=== PATIENT | male | born 1955 | race Caucasian/White ===

== ENCOUNTER 2017-02-18 11:17 | Emergency (ER) | payer BC, OTHER ==
[~2017-02-18] VITALS: Ht 177.8 cm; Wt 89.0 kg
[~2017-02-18 11:17] MED LIST: ZNTT/150 PO
[2017-02-18 11:26] VITALS: TEMP 36.8; Ht 177.8 cm; Wt 89.0 kg
[2017-02-18] MEDS ORDERED: SODIUM CHLORIDE 0.9% 1000ML 1,000 ML IV STA (11:41)
[2017-02-18] MEDS ORDERED: MoRPHine SULFATE 4 MG/ML 1 ML CARP\\VIAL IV STA (11:41)
[2017-02-18] MEDS ORDERED: ONDANSETRON INJ 2 MG/ML 2 ML VIAL IV STA (11:41)
[2017-02-18 12:03] VITALS: O2SAT 100
[2017-02-18 12:17] LABS: MANUAL MICROSCOPIC REQUIRED? YES; URINE APPEARANCE CLEAR (CLEAR); URINE BILIRUBIN NEG (NEG); URINE COLOR YELLOW; URINE NITRITE NEG (NEG); URINE PH 5.5 (4.5-7.5); URINE SPECIFIC GRAVITY >= 1.030 (1.000-1.030); UROBILINOGEN NEG (NEG)
[2017-02-18 12:20] LABS: BASO % 0.6 %; BASO ABS # 0.06 K/uL (0-0.2); COMPLETE YES; EOS % 0.9 %; HEMATOCRIT 43.3 % (42-52); IG% 0.3 %; LYMPH % 27.7 %; MEAN CELL VOLUME 91.7 fL (80-100); MEAN CORPUSCULAR HGB CONC 34.9 g/dl (32-36); MONO % 7.1 %; NEUT % 63.4 %; PLATELET COUNT 286 K/uL (130-400); RED BLOOD COUNT 4.72 M/uL (4.7-6.1); WHITE BLOOD COUNT 9.38 K/uL (4.8-10.8)
[2017-02-18 12:24] LABS: REVIEW REQ? NO
[2017-02-18] MEDS ORDERED: HYDROmorphone INJ 1 MG/ML SYR IV STA (12:25)
[2017-02-18 12:32] LABS: URINE MUCUS PRESENT (NONE PRSENT); URINE RBC >30 /hpf (0-4)
[2017-02-18 12:33] LABS: URINE BACTERIA NEG (NEG)
[2017-02-18 12:34] LABS: ZZUR CULT IF INDIC CLEAN CATCH NO
[2017-02-18 12:40] LABS: BUN/CREATININE RATIO 25.1 (10-20); CALCIUM 9.1 mg/dl (8.5-10.1); CREATININE 0.93 mg/dl (0.60-1.40)
--- NOTE | 2017-02-18 12:44 | DIAGNOSTIC IMAGING REPORT ---
ULTRASOUND KIDNEYS AND BLADDER CLINICAL HISTORY: Left flank pain. COMPARISON STUDY: Abdominal CT dated 03/16/2011. TECHNIQUE: Real-time, grayscale, and color flow sonography of the kidneys and bladder is performed. Images are reviewed in the transverse and longitudinal planes. FINDINGS: Kidneys: The kidneys are normal in size and echotexture. The right kidney measures 10.9 x 6.1 x 6.0 cm and the left kidney measures 12.0 x 6.5 x 5.6 cm. There is mild left hydronephrosis. No right-sided hydronephrosis is seen. No shadowing renal calculi are identified. There is no sonographic evidence of contour deforming renal mass lesion. No perinephric fluid is identified. Bladder: The bladder is decompressed and not well evaluated. Ureteral jets were not seen. IMPRESSION: 1. There is mild left-sided hydronephrosis. This raises concern for an obstructing ureteral calculus. 2. The kidneys are normal in size. There is no right-sided hydronephrosis. 3. The bladder is decompressed and not well evaluated. Electronically signed by: Joey Vo M.D. 02/18/2017 12:42 PM Dictated Date/Time: 02/18/2017 12:40 PM
[2017-02-18] MEDS ORDERED: PRLSR20 PO (12:49)
[2017-02-18] MEDS ORDERED: NAPR1TAB9 PO (12:49)
[2017-02-18] MEDS ORDERED: KETOROLAC TROMETHAMINE 30 MG/ML VIAL IV STA (12:50)
[2017-02-18] MEDS ORDERED: ONDA4TAB10 SL (13:41)
[2017-02-18] MEDS ORDERED: OXYC1TAB3 PO (13:41)
[2017-02-18 14:04] VITALS: BP 168/89; PULSE 80; O2SAT 97
--- NOTE | 2017-02-18 15:20 | EMERGENCY ROOM VISIT NOTE ---
History First contact with patient: 11:39 Chief Complaint: FLANK PAIN Stated Complaint: PAIN IN LOWER LEFT SIDE OF BACK History of Present Illness The patient is a 61 year old male who presents to the Emergency Room with complaints of severe sudden onset of left flank pain that radiates to his groin described as aching, ranging in severity 9 out of 10. Nothing makes it better or worse. He has had kidney stones before and symptoms feel similar. He does not have a urologist. Patient denies chest pain, dyspnea, fever, chills, vomiting, diarrhea, peanut pain, testicular pain. Review of Systems See HPI for pertinent positives & negatives. A total of 10 systems reviewed and were otherwise negative. Past Medical/Surgical History Kidney stones, GERD Social History Smoking Status: Never Smoker Smokeless Tobacco Use: No Drug Use: none Marital Status: Housing Status: lives with family Occupation Status: employed Current/Historical Medications Scheduled Naproxen (Aleve), 220 MG PO UD Omeprazole (Prilosec), 20 MG PO DAILY Ondasetron Odt (Zofran Odt), 4 MG SL Q6H Scheduled PRN Oxycodone Immediate Rel Tab (Roxicodone Ir), 1-2 TAB PO Q4H PRN for Severe Pain Allergies Uncoded Allergies: NONE (Allergy, Unknown, 10/23/03) Physical Exam Vital Signs Date Time Temp Pulse Resp B/P Pulse Ox O2 Delivery O2 Flow Rate FiO2 02/18/17 14:04 80 17 168/89 97 02/18/17 13:11 76 12 146/80 93 Room Air 02/18/17 12:08 76 02/18/17 12:03 69 18 163/84 100 Room Air 02/18/17 12:03 100 Room Air 02/18/17 12:03 69 18 163/84 100 Room Air 02/18/17 12:03 100 Room Air 02/18/17 11:26 36.8 76 16 189/108 95 Room Air Pain Rating (0-10): 2.0 Physical Exam VITALS: Vitals are noted on the nurse's note and reviewed by myself. Vital signs hypertensive GENERAL: Pleasant male in obvious pain, in no acute distress, nondiaphoretic, well-developed well-nourished. SKIN: The skin was without rashes, erythema, edema, or bruising. There is no tenting of the skin. Capillary reflex less than 2 seconds. HEAD: Normocephalic atraumatic. EARS: External auditory canals clear, tympanic membranes pearly mccarthy without erythema or effusion bilaterally. EYES: Pupils equal round and reactive to light and accommodation. Conjunctivae without injection, sclerae without icterus. Extraocular movements intact. NOSE: Patent, turbinates without inflammation or discharge. MOUTH: Mucous membranes moist. Pharynx without erythema or exudate. Uvula midline. Airway patent. Tongue does not deviate. NECK: Supple without nuchal rigidity. No lymphadenopathy. No thyromegaly. Cervical spine is nontender. No JVD. HEART: Regular rate and rhythm without murmurs gallops or rubs. LUNGS: Clear to auscultation bilaterally without wheezes, rales or rhonchi. No dullness to percussion. No retractions or accessory muscle use. ABDOMEN: Positive bowel sounds x 4. Normal tympanic percussion. Soft, nontender, without masses or organomegaly. Shankar sign negative. No guarding or rebound tenderness. No CVA tenderness MUSCULOSKELETAL: No muscle atrophy, erythema, or edema noted. NEURO: Patient was alert and oriented to person place and time. Normal sensation to light and sharp touch. No focal neurological deficits. Medical Decision & Procedures Laboratory Results 02/18/17 11:55 Red Blood Count 4.72, Mean Corpuscular Volume 91.7, Mean Corpuscular Hemoglobin 32.0, Mean Corpuscular Hemoglobin Concent 34.9, Mean Platelet Volume 9.0, Neutrophils (%) (Auto) 63.4, Lymphocytes (%) (Auto) 27.7, Monocytes (%) (Auto) 7.1, Eosinophils (%) (Auto) 0.9, Basophils (%) (Auto) 0.6, Neutrophils # (Auto) 5.94, Lymphocytes # (Auto) 2.60, Monocytes # (Auto) 0.67, Eosinophils # (Auto) 0.08, Basophils # (Auto) 0.06 02/18/17 11:55 Test 02/18/17 11:55 White Blood Count 9.38 K/uL (4.8-10.8) Red Blood Count 4.72 M/uL (4.7-6.1) Hemoglobin 15.1 g/dL (14.0-18.0) Hematocrit 43.3 % (42-52) Mean Corpuscular Volume 91.7 fL (80-100) Mean Corpuscular Hemoglobin 32.0 pg (25-34) Mean Corpuscular Hemoglobin Concent 34.9 g/dl (32-36) Platelet Count 286 K/uL (130-400) Mean Platelet Volume 9.0 fL (7.4-10.4) Neutrophils (%) (Auto) 63.4 % Lymphocytes (%) (Auto) 27.7 % Monocytes (%) (Auto) 7.1 % Eosinophils (%) (Auto) 0.9 % Basophils (%) (Auto) 0.6 % Neutrophils # (Auto) 5.94 K/uL (1.4-6.5) Lymphocytes # (Auto) 2.60 K/uL (1.2-3.4) Monocytes # (Auto) 0.67 K/uL (0.11-0.59) Eosinophils # (Auto) 0.08 K/uL (0-0.5) Basophils # (Auto) 0.06 K/uL (0-0.2) RDW Standard Deviation 43.4 fL (36.4-46.3) RDW Coefficient of Variation 12.9 % (11.5-14.5) Immature Granulocyte % (Auto) 0.3 % Immature Granulocyte # (Auto) 0.03 K/uL (0.00-0.02) Urine Color YELLOW Urine Appearance CLEAR (CLEAR) Urine pH 5.5 (4.5-7.5) Urine Specific [place] >= 1.030 (1.000-1.030) Urine Protein NEG (NEG) Urine Glucose (UA) NEG (NEG) Urine Ketones NEG (NEG) Urine Occult Blood 3+ (NEG) Urine Nitrite NEG (NEG) Urine Bilirubin NEG (NEG) Urine Urobilinogen NEG (NEG) Urine Leukocyte Esterase NEG (NEG) Urine RBC >30 /hpf (0-4) Urine WBC 1-5 /hpf (0-5) Urine Epithelial Cells 0-5 /lpf (0-5) Urine Other Crystals UNIDENTIFIED (NONE PRSENT) Urine Bacteria NEG (NEG) Urine Mucus PRESENT (NONE PRSENT) Anion Gap 7.0 mmol/L (3-11) Est Creatinine Clear Calc Drug Dose 96.0 ml/min Estimated GFR () 103.8 Estimated GFR (Non- 89.5 BUN/Creatinine Ratio 25.1 (10-20) Calcium Level 9.1 mg/dl (8.5-10.1) Medications Administered Medications (Trade) Dose Ordered Sig/Milady Route Start Time Stop Time Status Last Admin Dose Admin Morphine Sulfate (MoRPHine SULFATE INJ) 4 mg NOW STAT IV 02/18/17 11:41 02/18/17 11:43 DC 02/18/17 11:59 4 MG Ondansetron HCl 4 mg 4 mg NOW STAT IV 02/18/17 11:41 02/18/17 11:43 DC 02/18/17 11:59 4 MG Sodium Chloride (Nss 1000ml) 1,000 ml @ 125 mls/hr Q8H STAT IV 02/18/17 11:41 02/18/17 14:51 DC 02/18/17 11:59 125 MLS/HR Hydromorphone HCl (Dilaudid Inj) 1 mg NOW STAT IV 02/18/17 12:25 02/18/17 12:26 DC 02/18/17 12:40 1 MG ED Course Prior records/ancillary studies reviewed. Triage Nursing notes reviewed. Additional history obtained from the family. The patient's history was concerning for left flank pain. Differential diagnosis: Etiologies such as renal colic, appendicitis, diverticulitis, mesenteric ischemia, aortic pathology, infections, inflammatory bowel disease, PUD, biliary pathology, UTI, as well as others were entertained. Physical examination findings: As above. ER treatment provided: Dilaudid, Zofran, IV fluids On reassessment the patient felt better. Diagnostic interpretation by me: The labs revealed no worrisome leukocytosis or electrolyte abnormality. Urinalysis revealed hematuria. There was no sign of UTI. Imaging studies: ULTRASOUND KIDNEYS AND BLADDER CLINICAL HISTORY: Left flank pain. COMPARISON STUDY: Abdominal CT dated 03/16/2011. TECHNIQUE: Real-time, grayscale, and color flow sonography of the kidneys and bladder is performed. Images are reviewed in the transverse and longitudinal planes. FINDINGS: Kidneys: The kidneys are normal in size and echotexture. The right kidney measures 10.9 x 6.1 x 6.0 cm and the left kidney measures 12.0 x 6.5 x 5.6 cm. There is mild left hydronephrosis. No right-sided hydronephrosis is seen. No shadowing renal calculi are identified. There is no sonographic evidence of contour deforming renal mass lesion. No perinephric fluid is identified. Bladder: The bladder is decompressed and not well evaluated. Ureteral jets were not seen. IMPRESSION: 1. There is mild left-sided hydronephrosis. This raises concern for an obstructing ureteral calculus. It appears that the patient has isolated renal colic from a left sided stone. Patient's pain was under control. He requested to leave. I feel this is reasonable. He is advised to strain his urine to the stone passes and follow- up urology in a few days or here in the ER sooner for severe pain, fevers, vomiting, worsening signs or symptoms or as needed. Patient is a long-standing history kidney stones. Ultrasound concerning for kidney stone. No signs of UTI. By the evaluation outlined above emergent etiologies such as appendicitis, diverticulitis, mesenteric ischemia, aortic pathology, infections, inflammatory bowel disease, PUD, biliary pathology, UTI, as well as others were deemed relatively unlikely. The pt informed about the findings as listed above. All questions were answered and pleased with the treatment. Return instructions were outlined and the patient was discharged in stable condition. Outpatient prescription management: Oxy IR 5mg 1-2 po Q4 hrs prn Zofran Referral: The pt was referred to [facility] for follow up care regarding their stone. or The patient was referred back to their primary care physician for follow-up in 2 to 3 days for a recheck of the current condition. Case reviewed with my attending Medical Decision As above Impression Primary Impression: Renal colic on left side Departure Information Dispostion Home / Self-Care Condition GOOD Prescriptions Ondasetron Odt (ZOFRAN ODT) 4 Mg Tab 4 MG SL Q6H, #10 TAB Prov: Vashti Norris PA-C 02/18/17 Oxycodone Immediate Rel Tab (ROXICODONE IR) 5 Mg Tab 1-2 TAB PO Q4H Y for Severe Pain, #20 TAB Prov: Vashti Norris PA-C 02/18/17 Referrals Chelo Fajardo MD Forms HOME CARE DOCUMENTATION FORM, Work Instructions, Return To Work: 3 days IMPORTANT VISIT INFORMATION Patient Instructions Kidney Stones - [facility], [facility] Additional Instructions DO NOT drive, drink alcohol, operate machinery, or perform dangerous activities today. You were given medications in the ER that can affect your ability to safely function or operate a vehicle. Oxycodone Immediate Release (OxyIR) 5mg: Take 1-2 pills every four hours for pain. Avoid alcohol, operating machinery or dangerous equipment, working on ladders or roofs, DRIVING, or situations where being under the influence may be dangerous. It is recommended to use an mufl-mum-vujoluw stool softener such as Colace, 100mg twice daily while taking this medication to avoid constipation. Zofran 4 mg: Take one every six hours as needed for nausea. Avoid alcohol, operating machinery or dangerous equipment, working on ladders or roofs, DRIVING , or situations where being under the influence may be dangerous. Ibuprofen(Motrin, Advil) may be used for fever or pain. Use 600mg every six hours as needed. Take with food. Avoid using more than 2400mg in a 24 hour period. Do not use 2400mg per day for more than three consecutive days without physician direction. Prolonged inappropriate use can lead to stomach upset or ulcers. This medication can be taken if you need to drive, work, or perform activities which may be dangerous when taking narcotic pain medication. (AND/OR) Acetaminophen(Tylenol) may be used for fever or pain. Use 1000mg every six hours as needed. Avoid using more than 3000mg in a 24 hour period. This medication can be taken if you need to drive, work, or perform activities which may be dangerous when taking narcotic pain medication. Strain your urine and collect all the stones or debris for the urologists. Rest and avoid strenuous activity until your stone passes and symptoms resolve. Drink plenty of fluids. Continue current medications. Return to the ER for worsening abdominal or back pain, vomiting, fevers, passing out, or as needed. Follow up with [facility] tomorrow, [phone], to arrange a visit. Work Instructions Return To Work: 3 days
== END 2017-02-18 14:05 | disposition home or self-care (01) ==
LOC: C.EDB 11:20 → C.EDC 14:05
DX: N23 Unspecified renal colic (principal); K21.9 Gastro-esophageal reflux disease without esophagitis; Z79.899 Other long term (current) drug therapy; Z87.442 Personal history of urinary calculi

== ENCOUNTER 2020-01-09 08:57 | Inpatient (IN) ==
[2020-01-09 10:13] LABS: Basophils # (auto) 0.02 K/uL (0-0.2); Basophils % (auto) 0.2 %; Eosinophils # (auto) 0.22 K/uL (0-0.5); Eosinophils % (auto) 2.5 %; Hematocrit (blood only) 42.4 % (42-52); Immature Granulocytes # (auto) 0.03 K/uL (0.00-0.02); Immature Granulocytes % (auto) 0.3 %; Lymphocytes # (auto) 2.89 K/uL (1.2-3.4); Lymphocytes % (auto) 32.4 %; Mean Corpuscular Hemoglobin 34.2 pg (25-34); Mean Corpuscular Hgb Conc 35.4 g/dL (32-36); Mean Corpuscular Volume 96.8 fL (80-100); Mean Platelet Volume 9.5 fL (7.4-10.4); Monocytes # (auto) 0.72 K/uL (0.11-0.59); Monocytes % (auto) 8.1 %; Neutrophils # (auto) 5.05 K/uL (1.4-6.5); Neutrophils % (auto) 56.5 %; Platelet Count 254 K/uL (130-400); RDW Coefficient of Variation 12.2 % (11.5-14.5); RDW Standard Deviation 43.5 fL (36.4-46.3); Red Blood Count 4.38 M/uL (4.7-6.1); White Blood Count 8.93 K/uL (4.8-10.8)
[2020-01-09 10:41] LABS: Albumin Level 4.1 gm/dl (3.4-5.0); BUN Creatinine Ratio 11.6 (10-20); Bilirubin,Total 0.6 mg/dl (0.2-1); Creatinine Clr Calc Pharmacy 14.8 ml/min; Est GFR (African American) 9.7; Est GFR (Non-African American) 8.4; Globulin 4.1 gm/dl (2.5-4.0); Potassium 3.5 mmol/L (3.5-5.1); Total Protein 8.2 gm/dl (6.4-8.2)
[2020-01-09 11:12] LABS: Appearance Urine Clear (Clear); Bacteria Urine Automated Negative (Negative); Bilirubin Urine Negative (Negative); Blood Urine 2+ (Negative); Color Urine Yellow; Epithelial Cell Urine Auto >30 /lpf (0-5); Glucose Urine UA Negative (Negative); Ketones Urine Negative (Negative); Leukocyte Esterase Urine Negative (Negative); Nitrite Urine Negative (Negative); Protein Urine 2+ (Negative); RBC Urine Automated 0-4 /hpf (0-4); Specific Gravity Urine 1.015 (1.000-1.030); Urobilinogen Urine Negative (Negative)
[2020-01-09 11:31] LABS: Mucus Urine Present (None Prsent)
[2020-01-09 11:32] LABS: Amorphous Sediment Urine Present (None Prsent)
--- NOTE | 2020-01-09 12:52 | Ultrasound Report ---
US duplex renal artery CLINICAL HISTORY: 64 years-old Male presenting with lower back pain, new HTN, ?HILARIO. TECHNIQUE: Real-time grayscale and color and spectral Doppler ultrasound imaging of the kidneys was p erformed. COMPARISON: Outside renal ultrasound from 02/18/2017. FINDINGS: RIGHT: Normal echogenicity with preserved corticomedullary differentiation. Normal cortical thickness. Right kidney measures 11.6 cm. No hydronephrosis. No convincing evidence of calculus or mass. Spectral analysis: Intrarenal resistive indices range from 0.62 to 0.72. Normal intrarenal arterial waveforms. Renal art gorge patent with peak systolic velocity 119 cm/s proximally, 228 cm/s in the midportion, and 74 cm/s d istally. Renal vein patent. LEFT: Normal echogenicity with preserved corticomedullary differentiation. Normal cortical thickness. Left kidney measures 13.1 cm. No hydronephrosis. No convincing evidence of calculus or mass. Spectral analysis: Intrarenal resistive indices range from 0.66 to 0.71. Normal intrarenal arterial waveforms. Renal art gorge patent with peak systolic velocity 100 cm/s proximally, 88 cm/s in the midportion, and 60 cm/s di stally. Renal vein patent. Abdominal aorta: Patent. Peak systolic velocity 140 cm/s. Ratio of right renal artery PSV/aortic PSV: 1.63. Ratio of left renal artery PSV/aortic PSV: 0.71. Bladder: Not interrogated. Other: None. Reference ranges: Normal main renal artery peak systolic velocity less than 180 cm/s. Ratio of renal artery PSV to aort ic PSV less than 3.5 equates to normal or less than 60% stenosis. Only one of the two criteria listed needs to be met for diagnosis. IMPRESSION: 1. Focally elevated velocity in the mid right renal artery consistent with renal artery stenosis. 2. No evidence of renal artery stenosis on the left. 3. Normal intrarenal resistive indices. 4. No hydronephrosis. ACT 112: Negative or not required by law. Electronically signed by: Hugh Wilkins M.D. 01/09/2020 12:51 PM
[2020-01-09] MEDS ORDERED: SODIUM CHLORIDE 0.9% 1000ML 500 ML IV ONE (13:05)
--- NOTE | 2020-01-09 14:20 | History & Physical Report ---
Date of Service January 09, 2020 Assessment & Plan (1) Acute renal failure: (2) Right renal artery stenosis: Pt is 64 y/o M with PMH HTN, dyslipidemia, GERD, obesity, asthma presented to ER for abnormal labs - Worsening creatinine. Started on lisinopril/HCTZ in 12/2019 and had increased. Pt also taking NSAIDs daily. Cr: 1.0 12/19/2019, Cr: 3.7 on 01/05/2020, Cr:6.8 on 01/08/2020 In ER pt afebrile, P: 97, R: 16, BP: 145/95. No leukocytosis, BUN: 75, Cr: 6.47, GFR: 8. UA: 2+protein, 2+blood, 1-5 granular casts Renal Artery Duplex: 1. Focally elevated velocity in the mid right renal artery consistent with renal artery stenosis. 2. No evidence of renal artery stenosis on the left. 3. Normal intrarenal resistive indices. 4. No hydronephrosis. -In ER given 500ml NSS -Hold NSAIDS, HORACE, Diuretics and avoid other nephrotoxic agents -IVF -Nephrology consult, ER contacted Dr Holt -Vascular surgery consult, ER contact Dr Stephens -CBC, BMP in am (3) Hypertension: -Continue amlodipine -Monitor BP (4) Hyperlipidemia: -Continue Crestor (5) GERD (gastroesophageal reflux disease): -Continue PPI DVT Prophylaxis -SCDs Full Code as per discussion with pt Follows with Dr Cano for routine care Pt was seen and care coordinated with Dr Lion. See addendum History of Present Illness Chief Complaint: Abnormal labs Primary Care Provider: Boris Cano DO Pt is 64 y/o M with PMH HTN, dyslipidemia, GERD, obesity, asthma presented to ER for abnormal labs. Patient recently reestablished with PCP and was found to have hypertension and was started on lisinopril/HCTZ in 12/2019. Patient had re ported shortness of breath on exertion and followed up with cardiology, Dr Gary at [facility] and his lisinopril/HCTZ was increased. Patient was to have stress test however was hypertensive and stress test currently on hold. Patient was noted worsening creatinine on labs past couple weeks. Cr: 1.0 12/19/2019, Cr: 3.7 on 01/05/2020, Cr:6.8 on 01/08/2020 and was referred to ER for further evaluation. Patient's lisinopril/HCTZ has been discontinued. Patient reports has been taking 2 OTC Aleve daily for the past 6 months. Denies fever/chills, diaphoresis, N/V/D/C, HYDE, dizziness, syncope, vision changes, neck pain, CP, other SOB, orthopnea, palpitations, cough, sore throat, choking, otalgia, rhinorrhea, abdominal pain, paresthesias, weakness, extremity weakness, extremity edema, rashes, dysuria, hematuria, urinary frequency, urinary retention. Hx echo: 12/18/2019: Moderate LVH, EF: 55-60%, no wall motion abnormality, grade I diastolic dysfunction, mild aortic regurgitation, mild mitral regurgitation, pulmonary HTN Allergies Allergy/AdvReac Type Severity Reaction Status Date / Time No Known Allergies Allergy Unverified 01/09/20 10:12 Home Medications Home Medications Medication Instructions Recorded Confirmed Type albuterol sulfate 2 puff INHALATION Q4H PRN 01/09/20 01/09/20 History amlodipine 10 mg PO QAM 01/09/20 01/09/20 History omeprazole 20 mg PO QAM 01/09/20 01/09/20 History rosuvastatin 20 mg PO QAM 01/09/20 01/09/20 History Past Med/Surg History Medical History Asthma GERD (gastroesophageal reflux disease) Hyperlipidemia Hypertension Obesity Renal colic on left side (Acute) Surgical History History of arthroscopy of shoulder History of inguinal hernia repair Family History Mother Diabetes Hypertension Stroke Social History Preferred Language: [place] Communication Ability: Effective Hospice Care Consultant Required: No Beliefs That Will Affect Care: None Current Living Situation: Spouse and Family Other Information That Helps Us Care for You: No Feels Safe at Home: Yes Safety Concerns: Feels Safe At This Time Smoking Status: Never smoker Hx Alcohol Use: No Hx Substance Use: Yes substance use type: marijuana Substance Use Type Other:: smokes marijuana couple of times a week Review of Systems Review of Systems: All systems reviewed & are unremarkable except as noted in HPI & below Physical Exam Physical Exam: General: no distress, obesity Head: normocephalic, atraumatic Eyes: PERRL, EOM's intact, conjunctiva non-injected, anicteric ENT: normal inspection external ears, nose, mucous membranes moist Neck: supple, trachea midline Lungs: clear, no respiratory distress, no wheezing/rhonchi/rales CV: RRR, no murmur, no pretibial edema Abd: normal BS, protuberant, soft, non-tender Ext: no cyanosis, no calf tenderness Neuro: A&O x 3, no focal deficits noted, normal affect Skin: warm, dry Results & Data Vital Signs (Past 12 Hours) Vital Signs Temp Pulse Resp BP Pulse Ox 01/09/20 14:01 84 19 95 01/09/20 14:00 81 19 167/91 H 95 01/09/20 13:31 88 14 92 01/09/20 13:30 83 13 160/92 H 91 01/09/20 13:20 85 19 153/95 H 01/09/20 13:18 83 21 01/09/20 11:01 84 16 97 01/09/20 11:00 86 17 162/89 H 97 01/09/20 10:31 84 17 97 01/09/20 10:30 82 19 148/90 H 97 01/09/20 10:01 86 12 96 01/09/20 10:00 86 19 157/92 H 95 01/09/20 09:56 87 19 155/89 H 97 01/09/20 09:31 90 15 96 01/09/20 09:30 92 H 20 162/97 H 96 01/09/20 09:19 91 H 19 164/92 H 97 01/09/20 09:09 36.8 C 97 H 16 145/95 H 98 Laboratory Results Short CBC 01/09/20 Range/Units 09:25 WBC 8.93 (4.8-10.8) K/uL Hgb 15.0 (14.0-18.0) g/dL Hct 42.4 (42-52) % Plt Count 254 (130-400) K/uL BMP 01/09/20 09:25 Sodium 136 Potassium 3.5 Chloride 104 Carbon Dioxide 21 BUN 75 H Creatinine 6.47 H* Glucose 102 H Calcium 9.0 Liver Function 01/09/20 Range/Units 09:25 Total Bilirubin 0.6 (0.2-1) mg/dl AST 35 (15-37) U/L ALT 43 (12-78) U/L Alkaline Phosphatase 93 (45-117) U/L Albumin 4.1 (3.4-5.0) gm/dl Urine 01/09/20 Range/Units 10:40 Urine Color Yellow Urine Appearance Clear (Clear) Urine pH 5.0 (4.5-7.5) Ur Specific [place] 1.015 (1.000-1.030) Urine Protein 2+ H (Negative) Urine Glucose (UA) Negative (Negative) Diagnostic Findings Renal artery duplex: IMPRESSION: 1. Focally elevated velocity in the mid right renal artery consistent with renal artery stenosis. 2. No evidence of renal artery stenosis on the left. 3. Normal intrarenal resistive indices. 4. No hydronephrosis. Code Status & VTE Plan VTE Prophylaxis Plan VTE Prophylaxis will be ordered: Yes Supervising Physician Co-Signing Physician Notes Attending addendum: Patient was seen and examined in medical floor in presence of the He was admitted with acute renal failure with very high blood pressure without any significant symptoms He was noted to have right renal artery stenosis on ultrasound Denies any chest pain and/or palpitation, no nausea and or vomiting On examination Lying in bed comfortably Hemodynamically stable with high blood pressure of systolic 158 during examination Chest-clear to auscultate bilaterally Heart-S1-S2, regular, no murmur appreciated Abdomen-distended, soft, nontender bowel sounds present. Could not hear any renal bruit Extremities-trace edema bilaterally hunter guide-alert, awake and oriented x3. No focal sensory or motor deficit appreciated Admission labs and imaging studies reviewed Has PB likely secondary to HORACE inhibitor and hydrochlorothiazide and is complicated by renal artery stenosis Nephrology consulted Does not require any intervention for right renal artery stenosis at this time as per vascular surgery Agree with assessment and plan as outlined above by CARLOS Hill DR (1) Acute renal failure Acute renal failure type: unspecified Qualified Code(s): N17.9 - Acute kidney failure, unspecified (2) Hypertension Hypertension type: unspecified Qualified Code(s): I10 - Essential (primary) hypertension
[2020-01-09] MEDS ORDERED: ALBUTEROL HFA 8 GM INHALER INH PRN (15:14)
[2020-01-09] MEDS ORDERED: ACETAMINOPHEN 325 MG TAB PO PRN (15:14)
[2020-01-09] MEDS: SODIUM CHLORIDE 0.9% 1000ML 1,000 ML IV SCH (15:44)
[2020-01-09 15:45] LABS: Partial Thromboplastin Time 27.3 Seconds (21.0-31.0); Prothrombin Time 9.9 Seconds (9.0-12.0)
--- NOTE | 2020-01-09 17:32 | Emergency Department Note ---
Entered by Stanislav Thomas acting as a scribe for Dave Thompson M.D. History of Present Illness General Chief complaint: Referred by Doctor Stated complaint: RENAL ARTERY STENOSIS Time Seen by Provider: 01/09/20 09:50 Source: patient History of Present Illness Onset (ago): day(s) (a few days ago) Location: back (low) Pain Consistency: + other (two episodes) Maximum Pain Intensity: 0 Associated symptoms: + other (Negative for urinary symptoms, hematuria, abdominal pain, nausea, and vomiting.) The patient is a 64 year old male who presents to the emergency department with complaints of two episodes of lower back pain beginning a few days ago. The patient states that he had 2 episodes of low back pain a few days ago. He notes that these episodes lasted for about a half hour each. He denies any urinary symptoms, hematuria, abdominal pain, nausea, and vomiting. He denies any current pain. He reports that he was referred to the emergency department today for possible renal stenosis. The patient states that he has a history of kidney stones, and he notes that his current symptoms feel similar. He notes that he has a history of hypertension and hyperlipidemia. He reports that he was recently started on new medication. Home Medications Home Medications Medication Instructions Recorded Confirmed Type albuterol sulfate 2 puff INHALATION Q4H PRN 01/09/20 01/09/20 History amlodipine 10 mg PO QAM 01/09/20 01/09/20 History omeprazole 20 mg PO QAM 01/09/20 01/09/20 History rosuvastatin 20 mg PO QAM 01/09/20 01/09/20 History Allergies Allergy/AdvReac Type Severity Reaction Status Date / Time No Known Allergies Allergy Unverified 01/09/20 10:12 Past Med/Surg History Medical History Asthma GERD (gastroesophageal reflux disease) Hyperlipidemia Hypertension Obesity Renal colic on left side (Acute) Surgical History History of arthroscopy of shoulder History of inguinal hernia repair Family History Mother Diabetes Hypertension Stroke Social History Preferred Language: Martiniquais Communication Ability: Effective Culvert Installer Required: No Beliefs That Will Affect Care: None Current Living Situation: Spouse and Family Other Information That Helps Us Care for You: No Feels Safe at Home: Yes Safety Concerns: Feels Safe At This Time Smoking Status: Never smoker Hx Alcohol Use: No Hx Substance Use: Yes substance use type: marijuana Substance Use Type Other:: smokes marijuana couple of times a week Review of Systems See HPI for pertinent positives & negatives. and A total of 10 systems reviewed and were otherwise negative Physical Exam Vital Signs Vital Signs - 24 hr 01/09/20 09:09 01/09/20 09:19 01/09/20 09:30 Temperature 36.8 C Temperature Source Oral Pulse Rate 97 H 91 H 92 H Pulse Rate from SpO2 Sensor 92 H 93 H Respiratory Rate 16 19 20 Blood Pressure 145/95 H 164/92 H 162/97 H Blood Pressure Mean 111 108 119 Pulse Oximetry 98 97 96 Oxygen Delivery Method Room Air Sepsis Recent Fever Within 48 Hours No Sepsis New/Unexplained Change in Mental Status No Sepsis Action Taken by Nursing No Action Required 01/09/20 09:31 01/09/20 09:56 01/09/20 10:00 Temperature Temperature Source Pulse Rate 90 87 86 Pulse Rate from SpO2 Sensor 90 87 86 Respiratory Rate 15 19 19 Blood Pressure 155/89 H 157/92 H Blood Pressure Mean 117 111 Pulse Oximetry 96 97 95 Oxygen Delivery Method Sepsis Recent Fever Within 48 Hours Sepsis New/Unexplained Change in Mental Status Sepsis Action Taken by Nursing 01/09/20 10:01 01/09/20 10:30 01/09/20 10:31 Temperature Temperature Source Pulse Rate 86 82 84 Pulse Rate from SpO2 Sensor 86 83 83 Respiratory Rate 12 19 17 Blood Pressure 148/90 H Blood Pressure Mean 105 Pulse Oximetry 96 97 97 Oxygen Delivery Method Sepsis Recent Fever Within 48 Hours Sepsis New/Unexplained Change in Mental Status Sepsis Action Taken by Nursing 01/09/20 11:00 01/09/20 11:01 01/09/20 13:18 Temperature Temperature Source Pulse Rate 86 84 83 Pulse Rate from SpO2 Sensor 85 84 Respiratory Rate 17 16 21 Blood Pressure 162/89 H Blood Pressure Mean 107 Pulse Oximetry 97 97 Oxygen Delivery Method Sepsis Recent Fever Within 48 Hours Sepsis New/Unexplained Change in Mental Status Sepsis Action Taken by Nursing 01/09/20 13:20 01/09/20 13:30 01/09/20 13:31 Temperature Temperature Source Pulse Rate 85 83 88 Pulse Rate from SpO2 Sensor 89 85 Respiratory Rate 19 13 14 Blood Pressure 153/95 H 160/92 H Blood Pressure Mean 122 106 Pulse Oximetry 91 92 Oxygen Delivery Method Sepsis Recent Fever Within 48 Hours Sepsis New/Unexplained Change in Mental Status Sepsis Action Taken by Nursing GENERAL: Awake, alert, well-appearing, in no distress HENT: Normocephalic, atraumatic. EYES: Normal conjunctiva. Sclera non-icteric. RESPIRATORY: Clear to auscultation. No wheezes. Normal respiratory effort. CARDIAC: Normal rate. Normal rhythm. Extremities warm and well perfused. GI: Soft, non-distended. No tenderness to palpation. No rebound or guarding. No masses. RECTAL: Deferred. MUSCULOSKELETAL: Atraumatic. Chest examination reveals no tenderness. There is no CVA tenderness to palpation. LOWER EXTREMITIES: Calves are equal size bilaterally and non-tender. Trace bilateral pedal edema. NEURO: Normal sensorium. No sensory or motor deficits noted. No facial droop. SKIN: Warm and dry. No jaundice noted. Course Course 0955: The patient was evaluated in room A9. A complete history and physical exam was performed. 1305: I discussed the patient's case with Dr. Holt - Nephrology, [facility] [place]. He recommends admission in the emergency department 1311: I reevaluated and updated the patient. 1330: Upon reevaluation, the patient is stable. I discussed the findings and the treatment plan with the patient. He expresses agreement and understanding. I spoke with Louise Calle PA-C, of the [facility]. The patient will be evaluated for further management. 1338: I discussed the patient's case with Dr. Angelo Gaston Surgery, [facility]. He states that he can take care of the HILARIO here if needed. Consultations Time: 13:05 Consultation #2: I reviewed the patient's case with Louise Calle PA-C, of the [facility]. She will evaluate the patient for further management. Time: 13:30 Consultation #3: I discussed the patient's case with Dr. Stephens - Surgery, [facility]. He states that he can take care of the HILARIO here if needed. Time: 13:38 Administered Medications Sodium Chloride (Nss 1000ml) 1,000 mls @ 100 mls/hr IV .Q10H PARUL Stop: 01/10/20 11:13 Last Admin: 01/09/20 15:44 Dose: 100 mls/hr Documented by: [id number] Discontinued Medications Sodium Chloride (Nss 1000ml) 500 mls @ 999 mls/hr IV .Q31M ONE Stop: 01/09/20 13:35 Last Infusion: 01/09/20 13:56 Dose: 0 mls/hr Documented by: [id number] Admin: 01/09/20 13:20 Dose: 999 mls/hr Documented by: [id number] Medical Decision Making Differential Diagnosis Differential diagnosis: Etiologies such as shingles, pyelonephritis/UTI, renal colic, appendicitis, diverticulitis, mesenteric ischemia, torsion, aortic pathology, infections, inflammatory bowel disease, bowel obstruction, PUD, biliary pathology, as well as others were entertained. Medical Records Attestation: I reviewed the patient's medical records. Home Medications Current Medication List: was personally reviewed by me Laboratory Data Attestation: I reviewed the patient's lab results. Result diagrams: 01/09/20 09:25 01/09/20 09:25 Lab Results 01/09/20 01/09/20 01/09/20 Range/Units 09:25 09:25 09:25 WBC 8.93 (4.8-10.8) K/uL RBC 4.38 L (4.7-6.1) M/uL Hgb 15.0 (14.0-18.0) g/dL Hct 42.4 (42-52) % MCV 96.8 (80-100) fL MCH 34.2 H (25-34) pg MCHC 35.4 (32-36) g/dL RDW Std Deviation 43.5 (36.4-46.3) fL RDW Coeff of Rhiannon 12.2 (11.5-14.5) % Plt Count 254 (130-400) K/uL MPV 9.5 (7.4-10.4) fL Immature Gran % (Auto) 0.3 % Neut % (Auto) 56.5 % Lymph % (Auto) 32.4 % [place] % (Auto) 8.1 % Eos % (Auto) 2.5 % Baso % (Auto) 0.2 % Immature Gran # (Auto) 0.03 H (0.00-0.02) K/uL Neut # (Auto) 5.05 (1.4-6.5) K/uL Lymph # (Auto) 2.89 (1.2-3.4) K/uL [place] # (Auto) 0.72 H (0.11-0.59) K/uL Eos # (Auto) 0.22 (0-0.5) K/uL Baso # (Auto) 0.02 (0-0.2) K/uL PT 9.9 (9.0-12.0) Seconds INR 1.0 (0.9-1.1) APTT 27.3 (21.0-31.0) Seconds PTT Ratio 1.0 Sodium 136 (136-145) mmol/L Potassium 3.5 (3.5-5.1) mmol/L Chloride 104 (98-107) mmol/L Carbon Dioxide 21 (21-32) mmol/L Anion Gap 11.0 (3-11) BUN 75 H (7-18) mg/dl Creatinine 6.47 H* (0.6-1.4) mg/dl Est Cr Clr Drug Dosing 14.8 ml/min Est GFR ( Amer) 9.7 Est GFR (Non-Af Amer) 8.4 BUN/Creatinine Ratio 11.6 (10-20) Glucose 102 H (70-99) mg/dl Calcium 9.0 (8.5-10.1) mg/dl Total Bilirubin 0.6 (0.2-1) mg/dl AST 35 (15-37) U/L ALT 43 (12-78) U/L Alkaline Phosphatase 93 (45-117) U/L Total Protein 8.2 (6.4-8.2) gm/dl Albumin 4.1 (3.4-5.0) gm/dl Globulin 4.1 H (2.5-4.0) gm/dl Albumin/Globulin Ratio 1.0 (0.9-2) Lipase 177 (73-393) U/L Urine Color Urine Appearance (Clear) Urine pH (4.5-7.5) Ur Specific [place] (1.000-1.030) Urine Protein (Negative) Urine Glucose (UA) (Negative) Urine Ketones (Negative) Urine Blood (Negative) Urine Nitrite (Negative) Urine Bilirubin (Negative) Urine Urobilinogen (Negative) Ur Leukocyte Esterase (Negative) Urine WBC (Auto) (0-5) /hpf Urine RBC (Auto) (0-4) /hpf U Hyaline Cast (Auto) (0-5) /lpf U Epithel Cells (Auto) (0-5) /lpf Urine Bacteria (Auto) (Negative) Amorphous Sediment (None Prsent) Granular Casts (0) /lpf Urine Mucus (None Prsent) Urine Yeast 01/09/20 Range/Units 10:40 WBC (4.8-10.8) K/uL RBC (4.7-6.1) M/uL Hgb (14.0-18.0) g/dL Hct (42-52) % MCV (80-100) fL MCH (25-34) pg MCHC (32-36) g/dL RDW Std Deviation (36.4-46.3) fL RDW Coeff of Rhiannon (11.5-14.5) % Plt Count (130-400) K/uL MPV (7.4-10.4) fL Immature Gran % (Auto) % Neut % (Auto) % Lymph % (Auto) % [place] % (Auto) % Eos % (Auto) % Baso % (Auto) % Immature Gran # (Auto) (0.00-0.02) K/uL Neut # (Auto) (1.4-6.5) K/uL Lymph # (Auto) (1.2-3.4) K/uL [place] # (Auto) (0.11-0.59) K/uL Eos # (Auto) (0-0.5) K/uL Baso # (Auto) (0-0.2) K/uL PT (9.0-12.0) Seconds INR (0.9-1.1) APTT (21.0-31.0) Seconds PTT Ratio Sodium (136-145) mmol/L Potassium (3.5-5.1) mmol/L Chloride (98-107) mmol/L Carbon Dioxide (21-32) mmol/L Anion Gap (3-11) BUN (7-18) mg/dl Creatinine (0.6-1.4) mg/dl Est Cr Clr Drug Dosing ml/min Est GFR ( Amer) Est GFR (Non-Af Amer) BUN/Creatinine Ratio (10-20) Glucose (70-99) mg/dl Calcium (8.5-10.1) mg/dl Total Bilirubin (0.2-1) mg/dl AST (15-37) U/L ALT (12-78) U/L Alkaline Phosphatase (45-117) U/L Total Protein (6.4-8.2) gm/dl Albumin (3.4-5.0) gm/dl Globulin (2.5-4.0) gm/dl Albumin/Globulin Ratio (0.9-2) Lipase (73-393) U/L Urine Color Yellow Urine Appearance Clear (Clear) Urine pH 5.0 (4.5-7.5) Ur Specific [place] 1.015 (1.000-1.030) Urine Protein 2+ H (Negative) Urine Glucose (UA) Negative (Negative) Urine Ketones Negative (Negative) Urine Blood 2+ H (Negative) Urine Nitrite Negative (Negative) Urine Bilirubin Negative (Negative) Urine Urobilinogen Negative (Negative) Ur Leukocyte Esterase Negative (Negative) Urine WBC (Auto) 1-5 (0-5) /hpf Urine RBC (Auto) 0-4 (0-4) /hpf U Hyaline Cast (Auto) 5-10 H (0-5) /lpf U Epithel Cells (Auto) >30 H (0-5) /lpf Urine Bacteria (Auto) Negative (Negative) Amorphous Sediment Present A (None Prsent) Granular Casts 1-5 H (0) /lpf Urine Mucus Present A (None Prsent) Urine Yeast Not Reportable Imaging Data Radiologist's Impression: Radiology results as stated below per my review and the radiologist's interpretation: US duplex renal artery FINDINGS: RIGHT: Normal echogenicity with preserved corticomedullary differentiation. Normal cortical thickness. Right kidney measures 11.6 cm. No hydronephrosis. No convincing evidence of calculus or mass. Spectral analysis: Intrarenal resistive indices range from 0.62 to 0.72. Normal intrarenal arterial waveforms. Renal artery patent with peak systolic velocity 119 cm/s proximally, 228 cm/s in the midportion, and 74 cm/s distally. Renal vein patent. LEFT: Normal echogenicity with preserved corticomedullary differentiation. Normal cortical thickness. Left kidney measures 13.1 cm. No hydronephrosis. No convincing evidence of calculus or mass. Spectral analysis: Intrarenal resistive indices range from 0.66 to 0.71. Normal intrarenal arterial waveforms. Renal artery patent with peak systolic velocity 100 cm/s proximally, 88 cm/s in the midportion, and 60 cm/s distally. Renal vein patent. Abdominal aorta: Patent. Peak systolic velocity 140 cm/s. Ratio of right renal artery PSV/aortic PSV: 1.63. Ratio of left renal artery PSV/aortic PSV: 0.71. Bladder: Not interrogated. Other: None. Reference ranges: Normal main renal artery peak systolic velocity less than 180 cm/s. Ratio of renal artery PSV to aortic PSV less than 3.5 equates to normal or less than 60% stenosis. Only one of the two criteria listed needs to be met for diagnosis. IMPRESSION: 1. Focally elevated velocity in the mid right renal artery consistent with renal artery stenosis. 2. No evidence of renal artery stenosis on the left. 3. Normal intrarenal resistive indices. 4. No hydronephrosis. ACT 112: Negative or not required by law. Electronically signed by: Hugh Wilkins M.D. 01/09/2020 12:51 PM Blood Pressure Blood Pressure Findings: Elevated blood pressure Blood Pressure Disposition: further management by hospitalist GO Harmon Patient is a 64-year-old gentleman referred from the outpatient setting after some outpatient laboratory studies. Patiently recently diagnosed with hypertension and has a history of kidney stones. States he had back pain for a few weeks but denies any other urinary symptoms. Some concern reported for renal artery stenosis. Patient's outpatient labs indicate that his creatinine has risen from 3.7 on December 28-6.8 in the outpatient labs from yesterday. Repeat labs are sent today. Patient states she has intermittent back pain otherwise feels okay right now. Denies urinary symptoms again or chest pain. No edema noted. No trauma noted. Basic labs repeated as well as urinalysis. Renal artery ultrasound was completed look for possible stenosis or signs of hydronephrosis. Patient's creatinine here is significantly at 6.47. No signs of significant anemia or leukocytosis. No hyperkalemia noted. Ultrasound does confirm evidence of right artery renal stenosis. No signs of hydronephrosis and does not seem consistent with an kidney stone. Discussed with nephrology who recommended admission for blood pressure optimization. Discussed with the hospitalist and also Dr. Stephens vascular surgery who states if needed he could intervene on the stenosis. Patient was updated and will be admitted. Impression & Plan Hypertension, Right renal artery stenosis, Acute renal failure Discharge Plan Visit Data *Final* Discharge Date/Time: 01/09/20 14:28 Chief Complaint: Referred by Doctor Stated Complaint: RENAL ARTERY STENOSIS ED Provider: Dave Thompson Discharge Problem: Hypertension, Right renal artery stenosis, Acute renal failure Patient Disposition: Admitted As Inpatient Discharge Instructions Interventions: ED Discharge Assessment Last Done: 01/09/20 14:28 Discharge Problem: Hypertension Qualifiers: Hypertension type: unspecified Qualified Code(s): I10 - Essential (primary) hypertension Acute renal failure Qualifiers: Acute renal failure type: unspecified Qualified Code(s): N17.9 - Acute kidney failure, unspecified The scribe's documentation has been prepared under my direction and personally reviewed by me in its entirety. I confirm that the note above accurately reflects all work, treatment, procedures, and medical decision making performed by me.
[2020-01-10] MEDS: SODIUM CHLORIDE 0.9% 1000ML 1,000 ML IV SCH (01:53)
[2020-01-10 06:55] LABS: Hemoglobin 13.6 g/dL (14.0-18.0); Mean Corpuscular Hemoglobin 33.5 pg (25-34); Mean Corpuscular Volume 98.5 fL (80-100); Mean Platelet Volume 9.3 fL (7.4-10.4); Platelet Count 255 K/uL (130-400); RDW Coefficient of Variation 12.3 % (11.5-14.5); RDW Standard Deviation 44.2 fL (36.4-46.3); Red Blood Count 4.06 M/uL (4.7-6.1); White Blood Count 6.54 K/uL (4.8-10.8)
[2020-01-10 07:43] LABS: BUN Creatinine Ratio 12.7 (10-20); Calcium 8.6 mg/dl (8.5-10.1); Creatinine Clr Calc Pharmacy 18.5 ml/min; Est GFR (African American) 12.9; Est GFR (Non-African American) 11.1; Potassium 3.6 mmol/L (3.5-5.1)
[2020-01-10] MEDS: ROSUVASTATIN CALCIUM 20 MG TAB PO SCH (08:41)
[2020-01-10] MEDS: PANTOprazole 40 MG TAB PO SCH (08:41)
[2020-01-10] MEDS: AMLODIPINE BESYLATE 5 MG TAB PO SCH (08:41)
--- NOTE | 2020-01-10 15:44 | Nephrology Consultation ---
Date of Consultation January 10, 2020 Assessment & Plan (1) Acute renal failure: Patient with PB likely due to ATN from chronic NSAIDs use and recent HORACE- I/HCTZ combination use. Cr is better at 5.1 from 6.4 yesterday -Advised to avoid NSAIDs even after discharge -OK to monitor off fluids -Holding HORACE-I and HCTZ -Daily BMP (2) Right renal artery stenosis: Patient found to have focally elevated velocity on the mid renal artery. He might require stenting but it's not urgent. -Control his BP -Monitor renal function and volume status (3) Hypertension: BP is above target. Will add hydralazine 25mg po bid. control amlodipine History of Present Illness Reason for Consultation: PB, uncontrolled HTN Requesting Physician: Joao Pandey MD Attending Physician: Joao Pandey MD History of Present Illness This is a 64 y/o M with PMH HTN, dyslipidemia, GERD, obesity, and bilateral foot pain on chronic NSAIDs who was admitted on 01/08 with PB cr of 6.4 and uncontrolled HTN. Patient had not seen doctors in many yrs until a month ago when he established care with a PCP due to exertional dyspnea. he was found to be hypertensive with SBP in the 200's. He was started on lisinopril/HCTZ in 12/2019. Patient had reported shortness of breath on exertion and followed up with cardiology, Dr Gary at [facility] and his lisinopril/HCTZ was increased. Patient was to have stress test however was hypertensive and stress test currently on hold. Patient was noted worsening creatinine on labs past couple weeks. Cr: 1.0 12/19/2019, Cr: 3.7 on 01/05/2020, Cr:6.8 on 01/08/2020 and was referred to ER for further evaluation. Patient's lisinopril/HCTZ has been discontinued. Patient reports has been taking 2 OTC Aleve daily for the past 6 months. He got iv fluids in the ED and cr is better at 5.1. His BP remains high. No SOB or chest pain. he was also found to have HILARIO on renal duplex. Seen with at bedside Allergies Allergy/AdvReac Type Severity Reaction Status Date / Time No Known Allergies Allergy Unverified 01/09/20 10:12 Home Medications Home Medications Medication Instructions Recorded Confirmed Type albuterol sulfate 2 puff INHALATION Q4H PRN 01/09/20 01/09/20 History amlodipine 10 mg PO QAM 01/09/20 01/09/20 History omeprazole 20 mg PO QAM 01/09/20 01/09/20 History rosuvastatin 20 mg PO QAM 01/09/20 01/09/20 History Patient History Medical History Asthma GERD (gastroesophageal reflux disease) Hyperlipidemia Hypertension Obesity Renal colic on left side (Acute) Surgical History History of arthroscopy of shoulder History of inguinal hernia repair Family History Mother Diabetes Hypertension Stroke Social History Preferred Language: Bulgarian Communication Ability: Effective Geophysical 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 Permit 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 Required: No Beliefs That Will Affect Care: None Current Living Situation: Spouse and Family Other Information That Helps Us Care for You: No Feels Safe at Home: Yes Safety Concerns: Feels Safe At This Time Smoking Status: Never smoker Hx Alcohol Use: No Hx Substance Use: Yes substance use type: marijuana Substance Use Type Other:: smokes marijuana couple of times a week Review of Systems Review of Systems: All systems reviewed & are unremarkable except as noted in HPI & below Physical Exam Physical Exam: General exam: Appears comfortable, no acute distress HEENT: Pupils are equal and reactive to light Neck: No JVD, neck is supple trachea is midline Respiratory system: Clear breath sounds bilaterally. Gastrointestinal: Abdomen is soft, non distended, non tender, bowel sounds are present CVS: Regular rate and rhythm. No murmurs, rubs or gallops Musculoskeletal: No joint or muscle tenderness Extremities: Non tender, no edema, peripheral pulses are present Neuro: Oriented, no tremors, no focal neurological deficits Skin: No rashes Results & Data Vital Signs (Past 12 Hours) Vital Signs Temp Pulse Pulse Resp BP BP Pulse Ox 01/10/20 15:30 37.0 C 76 16 139/80 94 01/10/20 15:09 85 01/10/20 11:41 36.7 C 82 20 176/91 H 161/90 H 95 01/10/20 07:48 36.7 C 73 20 172/99 H 166/90 H 95 01/10/20 07:23 66 01/10/20 04:00 36.6 C 75 20 131/77 96 Laboratory Results 01/10/20 06:28 01/10/20 06:28 WBC 6.54 RBC 4.06 L MCV 98.5 MCH 33.5 MCHC 34.0 RDW Std Deviation 44.2 RDW Coeff of Rhiannon 12.3 Plt Count 255 MPV 9.3 (1) Acute renal failure Acute renal failure type: unspecified Qualified Code(s): N17.9 - Acute kidney failure, unspecified (2) Hypertension Hypertension type: unspecified Qualified Code(s): I10 - Essential (primary) hypertension
--- NOTE | 2020-01-10 20:25 | Hospitalist Progress Note ---
Date of Service January 10, 2020 Assessment & Plan (1) Acute kidney injury: Serum creatinine 6.47 at time of admission. Nephrology consulted. Acute kidney injury felt to be secondary to nonsteroidal anti-inflammatory drugs and/or HORACE inhibitor and/or hydrochlorothiazide. Renal artery duplex demonstrated mild right renal artery stenosis as discussed below. Creatinine today = 5.13. Follow. (2) Hypertension: Patient was recently taking hydrochlorothiazide and lisinopril which were discontinued in light of worsening renal function. Continue amlodipine. Hydralazine added to regimen. Follow and titrate therapy. (3) Right renal artery stenosis: Renal artery duplex demonstrated mild right renal restenosis. Discussed with Vascular Surgery. No intervention necessary at this time. (4) Asthma: Pulmonary status stable. (5) GERD (gastroesophageal reflux disease): Continue PPI. (6) DVT prophylaxis: SCDs initially ordered. Add subcutaneous heparin. Ambulate. (7) Discharge planning issues: Anticipated discharge to home. Family Medicine follow-up with Dr. Cano. Admission and Anticipated Discharge Date Admission Date: January 09, 2020 Subjective Recheck for acute kidney injury. Patient seen in their room around 1620. visiting. Feels well. Good urine output. Blood pressure fluctuating. Review of Systems: Constitutional- no fever. Cardiac- no chest pain. Pulmonary- no cough or SOB. GI- no nausea, vomiting, diarrhea, melena, hematochezia. - as noted above. Otherwise, as noted above. Physical Exam Constitutional: no acute distress Respiratory: no respiratory distress Auscultation: lungs clear to auscultation bilaterally Cardiovascular: Rate/Rhythm: regular rate and regular rhythm Heart Sounds: no gallop Vessels: no JVD Extremities: no calf tenderness and no edema Gastrointestinal (Abdomen): normal bowel sounds, soft, nontender, no hepatosplenomegaly Skin: no rashes, warm and dry Psychiatric: Orientation: alert and oriented x 3 Results & Data ([facility]) Vital Signs (Past 12 Hours) Vital Signs Temp Pulse Pulse Resp BP BP Pulse Ox 01/10/20 19:10 36.6 C 79 16 145/84 H 94 01/10/20 15:30 37.0 C 76 16 139/80 94 01/10/20 15:09 85 01/10/20 11:41 36.7 C 82 20 176/91 H 161/90 H 95 Laboratory Results 01/10/20 06:28 01/10/20 06:28 (1) Hypertension Hypertension type: unspecified Qualified Code(s): I10 - Essential (primary) hypertension
[2020-01-10] MEDS: HEPARIN SOD 5,000 UNIT/0.5 ML VIAL SQ SCH (20:26)
[2020-01-11 06:57] LABS: Creatinine Clr Calc Pharmacy 26.4 ml/min; Est GFR (Non-African American) 17.2; Potassium 3.6 mmol/L (3.5-5.1)
[2020-01-11] MEDS: ROSUVASTATIN CALCIUM 20 MG TAB PO SCH (08:03)
[2020-01-11] MEDS: PANTOprazole 40 MG TAB PO SCH (08:03)
[2020-01-11] MEDS: AMLODIPINE BESYLATE 5 MG TAB PO SCH (08:03)
[2020-01-11] MEDS: HEPARIN SOD 5,000 UNIT/0.5 ML VIAL SQ SCH (08:03)
--- NOTE | 2020-01-11 14:19 | Hospitalist Progress Note ---
Date of Service January 11, 2020 Assessment & Plan (1) Acute kidney injury: Serum creatinine 6.47 at time of admission. Nephrology consulted. Acute kidney injury felt to be secondary to nonsteroidal anti-inflammatory drugs and/or HORACE inhibitor and/or hydrochlorothiazide. Renal artery duplex demonstrated mild right renal artery stenosis as discussed below. Creatinine today = 3.57. Follow weekly until stable. (2) Hypertension: Patient was recently taking hydrochlorothiazide and lisinopril which were discontinued in light of worsening renal function. Continue amlodipine 10 mg daily. Hydralazine 25 mg TID added to regimen. Follow and titrate therapy. (3) Right renal artery stenosis: Renal artery duplex demonstrated mild right renal restenosis. Discussed with Vascular Surgery. No intervention necessary at this time. (4) Asthma: Pulmonary status stable. (5) GERD (gastroesophageal reflux disease): Continue PPI. (6) DVT prophylaxis: SCDs initially ordered. Added subcutaneous heparin. Ambulating. (7) Discharge planning issues: Discharge to home. Family Medicine follow-up with Dr. Cano. Nephrology follow-up with Dr. Holt. Admission and Anticipated Discharge Date Admission Date: January 09, 2020 Subjective Recheck for acute kidney injury. Patient seen in their room around 1400. Feels well. Good urine output. Ambulating. Ready to go home. Physical Exam Constitutional: no acute distress Respiratory: no respiratory distress Auscultation: lungs clear to auscultation bilaterally Cardiovascular: Rate/Rhythm: regular rate and regular rhythm Heart Sounds: no gallop Vessels: no JVD Extremities: no calf tenderness and no edema Gastrointestinal (Abdomen): normal bowel sounds, soft, nontender, no hepato splenomegaly Skin: no rashes, warm and dry Psychiatric: Orientation: alert and oriented x 3 Results & Data ([facility]) Vital Signs (Past 12 Hours) Vital Signs Temp Pulse Pulse Resp BP BP Pulse Ox 01/11/20 13:58 159/102 H 01/11/20 11:11 37.0 C 86 20 142/92 H 95 01/11/20 07:32 71 01/11/20 06:32 36.4 C L 74 19 157/95 H 97 01/11/20 03:04 36.8 C 80 19 137/67 94 Laboratory Results 01/10/20 06:28 01/11/20 05:41 (1) Hypertension Hypertension type: unspecified Qualified Code(s): I10 - Essential (primary) hypertension
--- NOTE | 2020-01-11 16:07 | Nephrology Progress Note ---
Date of Service January 11, 2020 Assessment & Plan (1) Acute renal failure: Patient with PB likely due to ATN from chronic NSAIDs use and recent HORACE- I/HCTZ combination use. Cr is better at 3.5 from 5.1 yesterday -Advised to avoid NSAIDs even after discharge -OK to discharge home at this point. He will need weekly BMP starting on Wednesday and labs can be copied to myself. -Holding HORACE-I and HCTZ (2) Right renal artery stenosis: Patient found to have focally elevated velocity on the mid renal artery. He might require stenting but it's not urgent. -Control his BP -Monitor renal function and volume status -Patient can follow-up with me in 2 to 4 weeks (3) Hypertension: BP is above target. Will increase hydralazine 25mg po 3 times daily. control amlodipine Admission and Anticipated Discharge Date Admission Date: January 09, 2020 Subjective Patient seen during morning rounds. He feels better today and is eager to be discharged home. No shortness of breath. Blood pressure is improving although still above target. Review of Systems Review of Systems: All systems reviewed & are unremarkable except as noted in HPI & below Physical Exam Physical Exam: General exam: Appears comfortable, no acute distress HEENT: Pupils are equal and reactive to light Neck: No JVD, neck is supple trachea is midline Respiratory system: Clear breath sounds bilaterally. Gastrointestinal: Abdomen is soft, non distended, non tender, bowel sounds are present CVS: Regular rate and rhythm. No murmurs, rubs or gallops Musculoskeletal: No joint or muscle tenderness Extremities: Non tender, no edema, peripheral pulses are present Neuro: Oriented, no tremors, no focal neurological deficits Skin: No rashes Results & Data ([facility]) Vital Signs (Past 12 Hours) Vital Signs Temp Pulse Pulse Resp BP BP Pulse Ox 01/11/20 14:50 37.0 C 86 20 159/102 H 142/92 H 95 01/11/20 13:58 159/102 H 01/11/20 11:11 37.0 C 86 20 142/92 H 95 01/11/20 07:32 71 01/11/20 06:32 36.4 C L 74 19 157/95 H 97 Laboratory Results 01/11/20 05:41 (1) Acute renal failure Acute renal failure type: unspecified Qualified Code(s): N17.9 - Acute kidney failure, unspecified (2) Hypertension Hypertension type: unspecified Qualified Code(s): I10 - Essential (primary) hypertension
--- NOTE | 2020-01-12 07:41 | Discharge Summary ---
Date of Service Date of Admission: 01/09/20 Date of Discharge: 01/11/20 Admission HPI Per Admitting Provider Pt is 64 y/o M with PMH HTN, dyslipidemia, GERD, obesity, asthma presented to ER for abnormal labs. Patient recently reestablished with PCP and was found to have hypertension and was started on lisinopril/HCTZ in 12/2019. Patient had reported shortness of breath on exertion and followed up with cardiology, Dr Gary at [facility] and his lisinopril/HCTZ was increased. Patient was to have stress test however was hypertensive and stress test currently on hold. Patient was noted worsening creatinine on labs past couple weeks. Cr: 1.0 12/19/2019, Cr: 3.7 on 01/05/2020, Cr:6.8 on 01/08/2020 and was referred to ER for further evaluation. Patient's lisinopril/HCTZ has been discontinued. Patient reports has been taking 2 OTC Aleve daily for the past 6 months. Denies fever/chills, diaphoresis, N/V/D/C, HYDE, dizziness, syncope, vision changes, neck pain, CP, other SOB, orthopnea, palpitations, cough, sore throat, choking, otalgia, rhinorrhea, abdominal pain, paresthesias, weakness, extremity weakness, extremity edema, rashes, dysuria, hematuria, urinary frequency, urinary retention. Hx echo: 12/18/2019: Moderate LVH, EF: 55-60%, no wall motion abnormality, grade I diastolic dysfunction, mild aortic regurgitation, mild mitral regurgitation, pulmonary HTN Principal Diagnosis acute kidney injury Discharge Data Allergies Allergy/AdvReac Type Severity Reaction Status Date / Time No Known Allergies Allergy Unverified 01/09/20 10:12 Consultations 01/09/20 13:43 ED Decision to Admit Stat 01/09/20 15:14 Consult Nephrology Routine Ordered Studies 01/09/20 10:01 US duplex renal artery Stat Hospital Course (1) Acute kidney injury: Baseline creatinine 1.0 12/15/19. Serum creatinine 6.47 at time of admission. Nephrology consulted. UA showed 5-10 hyaline casts, otherwise benign. No obstruction noted on US. Renal artery duplex demonstrated mild right renal artery stenosis as discussed below. Acute kidney injury felt to be secondary to nonsteroidal anti-inflammatory drugs and/or HORACE inhibitor and/or hydrochlorothiazide. Creatinine day of discharge 3.57. Follow BMP weekly until stable. (2) Hypertension: Patient was recently taking hydrochlorothiazide and lisinopril which were discontinued in light of worsening renal function. Continue amlodipine 10 mg daily. Hydralazine 25 mg TID added to regimen. Follow and titrate therapy. (3) Right renal artery stenosis: Renal artery duplex demonstrated mild right renal restenosis. Discussed with Vascular Surgery. No intervention necessary at this time. (4) Asthma: Pulmonary status stable. (5) GERD (gastroesophageal reflux disease): Continue PPI. (6) DVT prophylaxis: SCDs initially ordered. Added subcutaneous heparin. Ambulating. (7) Discharge planning issues: Discharged to home. Family Medicine follow-up with Dr. Cano. Nephrology follow-up with Dr. Holt. Total Time Total Time Spent Total Time Spent (In Minutes): 40 Discharge Plan Discharge Items Patient Disposition: Home - Self-Care Reason For Visit: acute kidney injury (worsening renal function) Discharge Diagnosis: acute kidney injury (worsening renal function) Condition on Discharge: Good Activity: Resume your previous activity Non-emergency contact: Primary Care Provider, Hospitalist and [employer] Call non-emergency contact if: you have any medication questions Follow-up/Referrals: Boris Cano DO [Primary Care Provider] - 01/15/20 3:00 pm Diet: Heart Healthy Addtl Attending Provider Instructions: MEDICATION CHANGES: Avoid anti-inflammatory medications like ibuprofen (Advil, Motrin) and naproxen (Aleve). They can cause kidney problems. May take Extra-Strength Tylenol as needed for pain. 2 pills every 8 hours as needed. Do not resume lisinopril / hydrochlorothiazide. They can cause kidney problems. Continue amlodipine for blood pressure as before. Start hydralazine 25 mg 3 times a day for better control of blood pressure. Skip dose if systolic blood pressure (top number) is under 110. SUMMARY OF TEST RESULTS: Blood tests at time of admission showed worsening kidney function. Kidney function getting better every day. Ultrasound showed mild narrowing of the right kidney artery, but no need for any surgery. RECOMMENDATIONS FOR FOLLOW-UP: Check your blood pressure at home and keep diary to share with your providers. Weekly lab tests at [facility] to check you kidney function. There should be a standing order. Please have labs done early in the week (Wednesday or Wednesday). No need to fast. OTHER INSTRUCTIONS: Seek medical attention if you have: * temperature above 101 * chest pain or trouble breathing * abdominal pain, nausea, vomiting * diarrhea, dark stools or bloody stools * any unanswered questions or concerns Call 911 if symptoms are severe. Please take good care of yourself. Call if you have any questions or problems. You can reach a [facility] hospitalist on duty at [facility] 24 hours a day by calling [phone]. My cell # is [phone]. Pending Studies at Discharge: No Stand-Alone Forms: My [facility], Smoking Cessation Medications and DC Order Prescriptions: New hydralazine 25 mg Tablet 25 mg PO TID Qty: 90 RF: 5 Continued amlodipine 10 mg tablet 10 mg PO QAM RF: 0 omeprazole 20 mg Capsule,Delayed Release(Dr/Ec) 20 mg PO QAM RF: 0 rosuvastatin 20 mg tablet 20 mg PO QAM RF: 0 albuterol sulfate 90 mcg/actuation HFA aerosol inhaler 2 puff INHALATION Q4H PRN (Reason: Shortness Of Breath Or Wheezing) RF: 0 Discharge Orders: Discharge Order (Routine); Ordered 01/11/20 Ordered By: Joao Pandey Admission Data Admit Date/Time: 01/09/20 14:00 Attending Provider: Joao Pandey Admit Provider: Alvin Lion Primary Care Provider: Boris Cano Other Providers: Alvin Lion ; Charlene Holt Other Interventions: Discharge Summary Assessment (RN) Last Done: 01/11/20 14:50 DC Date/Time DO NOT enter until pt leaves facility: 01/11/20 15:10
== END 2020-01-11 15:10 | disposition home or self-care (01) | DRG 698 ==
LOC: ED 08:57 → SUATTDRO 14:00 → 2N 14:00

== ENCOUNTER 2024-08-17 19:43 | Inpatient (IN) ==
--- NOTE | 2024-08-17 19:57 | Emergency Department Note ---
Impression & Plan Stroke-like symptoms ED Provider Note Provider: Dave Thompson MD DATE OF SERVICE: 08/17/2024 CHIEF COMPLAINT: Weakness HISTORY OF PRESENT ILLNESS: Patient is a 68-year-old gentleman past medical history including GERD, hypertension, prior history of renal artery stenosis presenting here today with onset around 715 this evening while he was in a tree stand hunting feeling off and generally weak. Had difficulty getting down from the tree stand but did not fall. Friend was present and drove him here for evaluation where he reports weakness of both legs and triage reports the patient's speech is off. Denies dizziness or significant pain. Denies nausea or breathing trouble. Patient states he just feels that something is not right. Denies numbness or tingling to me. Denies significant acute visual change. PAST MEDICAL HISTORY: As noted above MEDICATIONS: Reviewed home medications not on blood thinners currently. SOCIAL HISTORY: , occasionally smoking PHYSICAL EXAM: GENERAL: alert and oriented on stretcher appears tearful Head: normocephalic and atraumatic EYES: No injection, discharge or icterus. PERRL, EOMI. NECK: Trachea midline. Supple. ENT: Mucous membranes pink and moist. LUNGS: Airway patent. No retractions. Breath sounds clear with good air entry bilaterally. HEART: Regular rate and rhythm. No chest wall tenderness ABDOMEN: Soft and non-tender, without guarding or rebound. SKIN: Acyanotic, warm, dry, without rashes EXTREMITIES: Without swelling, tenderness or deformity NEUROLOGICAL: Moves all extremities without significant aphasia or obvious facial droop. Some mild dysarthria or slurred speech. Some increased ataxia with the left [id number]. Is able to do bilateral straight leg raise about 4 out of 5. 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 EK bpm normal sinus rhythm. No PVC or PAC. No acute ST segment elevation or depression with a bit of baseline artifact. QTc 427. Some nonspecific inferior T wave changes in the artifact noted. CONTINUOUS CARDIAC MONITORING: was ordered and showed a heart rate of 80s to 90s bpm in normal sinus rhythm 1 view chest x-ray without evidence of pneumonia pneumothorax obvious. Maybe a trace amount of fluid on the lungs. Patient's laboratory studies and imaging reviewed. Differential includes Infection, dehydration, metabolic abnormality, hypo/hyperglycemia, electrolyte disturbance, anemia, hypoxia, cardiac sources, intracerebral event, toxicologic, neurologic, as well as other pathologies. IMPRESSION/MEDICAL DECISION MAKING: Fairly sudden onset weakness seems more symmetric in the lower extremities by his report but little worse ataxia left [id number]. Is somewhat tearful and makes interview a little more difficult. Given the short onset of sudden symptoms and his significant hypertensive made a stroke alert. Will obtain CT and CT angiogram of the head and neck and basic blood work obtained. Glucose obtained. Denies any alcohol use today. There is no trauma history. Denies any severe pain. Did proceed with CT angiograms given concern for possible CVA even in light of his elevated creatinine. Blood work here without anemia or thrombocytopenia. Mild leukocytosis 12.2 noted. No severe electrolyte abnormalities noted. Not hypoglycemic. Seen by telestroke virtually. Is concerned the patient could be suffering from acute stroke and as such after discussion of risks and benefits patient and family agreed with the plan to proceed with thrombolysis. TNK ordered and administered --some delay for arrival from pharmacy the medication. Given a bit of labetalol as blood pressure borderline. Family patient does states he has been using some ibuprofen recently to help with some knee pain. No severe electrolyte abnormalities noted on blood work. COVID test completed to look for other possible etiologies infectious child and UA is pending. Will admit to the hospital for further monitoring and evaluation and workup. Hospitalist contacted. DIAGNOSIS: Strokelike symptoms, weakness, hypertension DISPOSITION: Hospitalist will evaluate Patient was agreeable with this plan. Critical Care I have personally spent 33 minutes of critical care time in the direct management of this patient. This includes bedside care, interpretation of diagnostic studies, and testing, discussion with consultants, patient, and family members, and other required patient management activities. These 33 minutes is in excess of all separately billable procedures. Past Med/Surg History Problem List (Updated 08/17/24 @ 23:47 by Dave Thompson M.D.) Stroke-like symptoms (Acute) Acute kidney injury Obesity GERD (gastroesophageal reflux disease) Hypertension (Acute) Medical History (Updated 08/17/24 @ 23:47 by Dave Thompson M.D.) Osteoarthritis CKD (chronic kidney disease), stage III Asthma Right renal artery stenosis Hyperlipidemia Hypertension Renal colic on left side Surgical History (Updated 08/17/24 @ 22:01 by ANGELES Abebe) History of hip replacement History of arthroscopy of shoulder History of inguinal hernia repair Family History Mother Diabetes Hypertension Stroke Social History Smoking Status: Never smoker Hx Alcohol Use: Yes Alcohol type: beer Hx Substance Use: Yes Last Used Substance: Hours (ago) Substance Use Type Other:: smokes marijuana couple of times a week Preferred Language: Japanese Communication Ability: Effective Diathermy Equipment Repairer Required: No Beliefs That Will Affect Care: None Current Living Situation: Spouse and Family Other Information That Helps Us Care for You: No Feels Safe at Home: Yes Safety Concerns: Feels Safe At This Time Assistive Devices: Glasses Allergies Allergies Allergy/AdvReac Type Severity Reaction Status Date / Time No Known Allergies Allergy Unverified 01/09/20 10:12 Home Meds Home Medications Medication Instructions Recorded Confirmed albuterol sulfate 90 mcg/actuation 2 puff inhalation Q4H PRN 01/09/20 01/09/20 aerosol inhaler Shortness Of Breath Or Wheezing amlodipine 10 mg tablet 10 mg PO QAM 01/09/20 01/09/20 omeprazole 20 mg capsule,delayed 20 mg PO QAM 01/09/20 01/09/20 release rosuvastatin 20 mg tablet 20 mg PO QAM 01/09/20 01/09/20 Previous Rx's Medication Instructions Recorded hydralazine 25 mg tablet 25 mg PO TID #90 tabs 01/11/20 oxycodone-acetaminophen 5 mg-325 1 tab PO Q6H PRN pain #20 tabs 06/16/22 mg tablet (Percocet) Results & Data (ED) Vital Signs Vital Signs - 24 hr 08/17/24 19:47 08/17/24 20:09 08/17/24 20:10 Temperature 36.0 C L Temperature Source Temporal Artery Scan Pulse Rate 82 96 H Pulse Rate [Apical] 95 H Pulse Rhythm [Apical] Regular Pulse Strength [Apical] Normal Respiratory Rate 18 16 Respiratory Effort / Characteristics Non-Labored Spontaneous Respiratory Depth Normal Blood Pressure 185/123 H Blood Pressure [Left Arm] 160/117 H Blood Pressure Mean 143 Blood Pressure Mean [Left Arm] 131 Pulse Oximetry 93 95 Oxygen Delivery Method Room Air Room Air Sepsis Recent Fever Within 48 Hours No Sepsis New/Unexplained Change in Mental Status No Sepsis Action Taken by Nursing No Action Required 08/17/24 20:21 08/17/24 20:28 08/17/24 20:35 Temperature Temperature Source Pulse Rate 90 80 Pulse Rate [Apical] 91 H Pulse Rhythm [Apical] Regular Pulse Strength [Apical] Respiratory Rate 18 19 Respiratory Effort / Characteristics Respiratory Depth Normal Blood Pressure 145/107 H 146/96 H Blood Pressure [Left Arm] 145/107 H Blood Pressure Mean 118 Blood Pressure Mean [Left Arm] 119 Pulse Oximetry 95 93 Oxygen Delivery Method Room Air Room Air Sepsis Recent Fever Within 48 Hours Sepsis New/Unexplained Change in Mental Status Sepsis Action Taken by Nursing 08/17/24 20:42 08/17/24 20:50 08/17/24 21:05 Temperature Temperature Source Pulse Rate Pulse Rate [Apical] 83 88 85 Pulse Rhythm [Apical] Pulse Strength [Apical] Respiratory Rate 18 22 22 Respiratory Effort / Characteristics Respiratory Depth Normal Blood Pressure Blood Pressure [Left Arm] 142/85 H 131/91 140/97 Blood Pressure Mean Blood Pressure Mean [Left Arm] 104 104 111 Pulse Oximetry 93 93 93 Oxygen Delivery Method Room Air Room Air Room Air Sepsis Recent Fever Within 48 Hours Sepsis New/Unexplained Change in Mental Status Sepsis Action Taken by Nursing 08/17/24 21:20 08/17/24 21:35 Temperature Temperature Source Pulse Rate Pulse Rate [Apical] 87 83 Pulse Rhythm [Apical] Pulse Strength [Apical] Respiratory Rate 24 19 Respiratory Effort / Characteristics Respiratory Depth Blood Pressure Blood Pressure [Left Arm] 131/87 127/93 Blood Pressure Mean Blood Pressure Mean [Left Arm] 101 104 Pulse Oximetry 92 93 Oxygen Delivery Method Room Air Room Air Sepsis Recent Fever Within 48 Hours Sepsis New/Unexplained Change in Mental Status Sepsis Action Taken by Nursing Laboratory Data 08/17/24 19:45 08/17/24 19:45 Lab Results 08/17/24 08/17/24 08/17/24 Range/Units 19:45 19:57 20:14 WBC 12.29 H (4.8-10.8) K/ul RBC 4.55 L (4.70-6.10) M/uL Hgb 15.0 (14.0-18.0) g/dl POC Hgb 15.6 (14.0-18.0) g/dl Hct 44.8 (42.0-52.0) % POC Hct 46 (42-52) % MCV 98.5 (80.0-100.0) fL MCH 33.0 (25.0-34.0) pg MCHC 33.5 (32.0-36.0) g/dL RDW Std Deviation 43.8 (36.4-46.3) fL RDW Coeff of Rhiannon 12.2 (11.5-14.5) % Plt Count 307 (130-400) K/uL MPV 8.8 L (9.4-12.4) fL Immature Gran % (Auto) 0.4 % Neut % (Auto) 64.9 % Lymph % (Auto) 26.9 % [place] % (Auto) 6.5 % Eos % (Auto) 0.7 % Baso % (Auto) 0.6 % Neut # (Auto) 7.98 H (1.40-6.50) K/uL Lymph # (Auto) 3.31 (1.20-3.40) K/uL [place] # (Auto) 0.80 H (0.11-0.59) K/uL Eos # (Auto) 0.08 (0.00-0.50) K/uL Baso # (Auto) 0.07 (0.00-0.20) K/uL Immature Gran # (Auto) 0.05 (0.01-0.20) K/uL PT 10.3 (9.0-12.0) Seconds INR 0.9 (0.9-1.1) APTT 24 (21-31) Seconds PTT Ratio 0.9 POC Sodium 140 (135-144) mmol/L Sodium 141 (136-145) mmol/L POC Potassium 4.0 (3.3-5.0) mmol/L Potassium 3.9 (3.5-5.1) mmol/L POC Chloride 104 (101-112) mmol/L Chloride 102 (98-107) mmol/L Carbon Dioxide 28 (21-32) mmol/L POC Total CO2 26 (24-31) mmol/L Anion Gap 11 (3-11) POC Anion Gap 15.0 L (16-25) mmol/L POC BUN 34 H (7-18) mg/dl BUN 32 H (6-23) mg/dl Creatinine 1.78 H (0.6-1.4) mg/dl POC Creatinine 1.9 H (0.6-1.3) mg/dl Est Cr Clr Drug Dosing 52.4 ml/min eGFR 41.55 BUN/Creatinine Ratio 18.0 (10-20) Glucose 130 H (70-99(Fasting)) mg/dl POC Glucose 99 (70-99) mg/dl POC Glucose (other) 129 H (70-99) mg/dl Calcium 10.7 H (8.6-10.3) mg/dl POC Ioniz Calcium Jannie 1.33 H (1.12-1.32) mmol/l Magnesium 2.2 (1.7-2.4) mg/dl Total Bilirubin 0.7 (0.2-1.0) mg/dl AST 25 (13-39) U/L ALT 27 (7-52) U/L Alkaline Phosphatase 78 (34-104) U/L Troponin I High Sens 5.4 (0-20) pg/ml Total Protein 8.4 H (6.0-8.3) gm/dl Albumin 5.1 H (3.4-5.0) gm/dl Globulin 3.3 (2.5-4.0) gm/dl Albumin/Globulin Ratio 1.5 (0.9-2) SARS-CoV-2, RNA, NAAT (NEGATIVE) 08/17/24 Range/Units 21:07 WBC (4.8-10.8) K/ul RBC (4.70-6.10) M/uL Hgb (14.0-18.0) g/dl POC Hgb (14.0-18.0) g/dl Hct (42.0-52.0) % POC Hct (42-52) % MCV (80.0-100.0) fL MCH (25.0-34.0) pg MCHC (32.0-36.0) g/dL RDW Std Deviation (36.4-46.3) fL RDW Coeff of Rhiannon (11.5-14.5) % Plt Count (130-400) K/uL MPV (9.4-12.4) fL Immature Gran % (Auto) % Neut % (Auto) % Lymph % (Auto) % [place] % (Auto) % Eos % (Auto) % Baso % (Auto) % Neut # (Auto) (1.40-6.50) K/uL Lymph # (Auto) (1.20-3.40) K/uL [place] # (Auto) (0.11-0.59) K/uL Eos # (Auto) (0.00-0.50) K/uL Baso # (Auto) (0.00-0.20) K/uL Immature Gran # (Auto) (0.01-0.20) K/uL PT (9.0-12.0) Seconds INR (0.9-1.1) APTT (21-31) Seconds PTT Ratio POC Sodium (135-144) mmol/L Sodium (136-145) mmol/L POC Potassium (3.3-5.0) mmol/L Potassium (3.5-5.1) mmol/L POC Chloride (101-112) mmol/L Chloride (98-107) mmol/L Carbon Dioxide (21-32) mmol/L POC Total CO2 (24-31) mmol/L Anion Gap (3-11) POC Anion Gap (16-25) mmol/L POC BUN (7-18) mg/dl BUN (6-23) mg/dl Creatinine (0.6-1.4) mg/dl POC Creatinine (0.6-1.3) mg/dl Est Cr Clr Drug Dosing ml/min eGFR BUN/Creatinine Ratio (10-20) Glucose (70-99(Fasting)) mg/dl POC Glucose (70-99) mg/dl POC Glucose (other) (70-99) mg/dl Calcium (8.6-10.3) mg/dl POC Ioniz Calcium Jannie (1.12-1.32) mmol/l Magnesium (1.7-2.4) mg/dl Total Bilirubin (0.2-1.0) mg/dl AST (13-39) U/L ALT (7-52) U/L Alkaline Phosphatase (34-104) U/L Troponin I High Sens (0-20) pg/ml Total Protein (6.0-8.3) gm/dl Albumin (3.4-5.0) gm/dl Globulin (2.5-4.0) gm/dl Albumin/Globulin Ratio (0.9-2) SARS-CoV-2, RNA, NAAT NEGATIVE (NEGATIVE) Administered Medications Sodium Chloride (Nss) 1,000 mls @ 100 mls/hr IV .Q10H PARUL Stop: 09/16/24 22:29 Last Admin: 08/17/24 22:59 Dose: 100 mls/hr Documented By: TMG Discontinued Medications Tenecteplase 25 mg/ Syringe 5 mls @ 60 mls/min IV NOW ONE; Protocol Stop: 08/17/24 20:36 Last Admin: 08/17/24 20:35 Dose: 60 mls/min Documented By: HIRA Co-signed By: MORIAH Ioversol (Optiray 320 125ml) 118 ml IV ONCE ONE Stop: 08/17/24 20:02 Last Admin: 08/17/24 20:02 Dose: 118 ml Documented By: MARISSA Labetalol HCl (Labetalol Hcl Iv 5 Mg/Ml 20ml) 10 mg IV NOW STA Stop: 08/17/24 20:26 Last Admin: 08/17/24 20:28 Dose: 10 mg Documented By: HIRA Labetalol HCl (Labetalol Hcl Iv 5 Mg/Ml 20ml) Confirm Administered Dose 5 mg IV .STK-MED ONE Stop: 08/17/24 20:27 Last Admin: 08/17/24 20:30 Dose: Not Given Documented By: HIRA Sodium Chloride (Sodium Chloride 0.9% 10ml Flush) 20 ml IV NOW STA Stop: 08/17/24 20:26 Last Admin: 08/17/24 20:36 Dose: 20 ml Documented By: EMB Imaging Data Radiologist's Impression: Head CT 08/17/24 19:47 CR Exam(s): CT HEAD Without Contrast EXAM: CT Head Without Intravenous Contrast CLINICAL HISTORY: Reason for exam: neuro deficit, acute stroke suspected. TECHNIQUE: Axial computed tomography images of the head/brain without intravenous contrast. CTDI is 45.33 mGy and DLP is 774.27 mGy-cm. Automated exposure control was utilized for the study. A dose lowering technique was utilized adhering to the principles of ALARA. Moderate motion artifact. COMPARISON: None. FINDINGS: Brain: No mass effect or acute infarct. No acute hemorrhage. Mild atrophy and chronic white matter disease. Ventricles: No hydrocephalus or midline shift. Bones/joints: No acute finding. Soft tissues: No scalp hematoma. Visualized Sinuses: Clear. Mastoid air cells: No mastoid effusion. IMPRESSION: 1. Mild age-related findings. 2. No acute infarct, bleed, or acute intracranial abnormality. 3. Moderate motion artifact. Communications: Call Doctor Stroke Electronically signed by: Avril Edwards M.D. 08/17/24 20:32 PM Head CTA 08/17/24 19:47 CR Exam(s): CTA HEAD With Contrast IV Amt: 118 ml opti 320 EXAM: CT Angiography Head With Intravenous Contrast CLINICAL HISTORY: Reason for exam: neuro deficit, acute stroke suspected. TECHNIQUE: Axial computed tomographic angiography images of the head with intravenous contrast. CTDI is 45.33 mGy and DLP is 774.27 mGy-cm. Automated exposure control was utilized for the study. A dose lowering technique was utilized adhering to the principles of ALARA. MIP reconstructed images were created and reviewed. Mild motion artifact and venous contamination mildly limited evaluation. CONTRAST: Patient received 118 ml opti 320 of IV contrast COMPARISON: Head CT done earlier. FINDINGS: Right internal carotid artery: Patent. Right anterior cerebral artery: Patent. Right middle cerebral artery: Patent. Right posterior cerebral artery: Patent. Right vertebral artery: Patent. Left internal carotid artery: Patent. Left anterior cerebral artery: Patent. Left middle cerebral artery: Patent. Left posterior cerebral artery: Patent. Left vertebral artery: Patent. Basilar artery: Patent. Other: Minimal atherosclerosis bilateral cavernous ICA without significant stenosis. IMPRESSION: 1. No aneurysm or large vessel occlusion. Communications: Call Doctor Stroke Electronically signed by: Avril Edwards M.D. 08/17/24 20:32 PM Neck CTA 08/17/24 19:47 CR Exam(s): CTA NECK With Contrast IV Amt: 118 cc opti 320 EXAM: CT Angiography Neck With Intravenous Contrast CLINICAL HISTORY: Reason for exam: neuro deficit, acute stroke suspected. TECHNIQUE: Routine carotid CT angiography protocol was performed with intravenous contrast. NASCET criteria using the distal ICAs for comparison were used for evaluation of stenoses. CTDI is 45.33 mGy and DLP is 774.27 mGy-cm. Automated exposure control was utilized for the study. A dose lowering technique was utilized adhering to the principles of ALARA. MIP reconstructed images were created and reviewed. CONTRAST: Patient received 118 cc opti 320 of IV contrast COMPARISON: None. FINDINGS: Right common carotid artery: Patent. Right internal carotid artery: Patent. Right vertebral artery: Patent. Right dominant system. Left common carotid artery: Patent. Left internal carotid artery: Patent. Left vertebral artery: Patent. Other: Mild to moderate bilateral carotid atherosclerosis, without significant stenosis. IMPRESSION: 1. No dissection, occlusion, or significant stenosis. CAROTID STENOSIS REFERENCE USING NASCET CRITERIA: % ICA stenosis = (1 - narrowest ICA diameter/diameter of distal cervical ICA) x 100. Mild - <50% stenosis. Moderate - 50-69% stenosis. Severe - 70-94% stenosis. Near occlusion - 95-99% stenosis. Occluded - 100% stenosis. Communications: Call Doctor Stroke Electronically signed by: Avril Edwards M.D. 08/17/24 20:33 PM Chest X-Ray 08/17/24 20:13 SINGLE VIEW CHEST CLINICAL HISTORY: Generalized weakness. FINDINGS: An AP, portable, upright chest radiograph is obtained. No prior studies are available for comparison at the time of dictation. The examination is degraded by portable technique and apical lordotic positioning. The heart is mildly enlarged. The pulmonary vasculature is noncongested. There is mild elevation of the right hemidiaphragm. Atelectasis is seen at the lung bases. The lungs and pleural spaces are otherwise clear. No pneumothorax is seen. The skeletal structures appear osteopenic. The bony thorax is grossly intact. IMPRESSION: No acute cardiopulmonary abnormality is identified. ACT 112: Negative or not required by law. Electronically signed by: Joey Vo M.D. 08/17/2024 9:32 PM Discharge Plan Visit Data Chief Complaint: Stroke Alert Stated Complaint: STROKE SYMPTOMS ED Provider: Dave Thompson Discharge Problem: Stroke-like symptoms Patient Disposition: Admitted As Inpatient Discharge Instructions Interventions: ED Discharge Assessment Last Done: 08/17/24 22:15
[2024-08-17] MEDS: OPTIRAY 320 125ml IV ONE (20:02)
[2024-08-17 20:09] LABS: iSTAT Creatinine 1.9 mg/dl (0.6-1.3); iSTAT Hemoglobin 15.6 g/dl (14.0-18.0); iSTAT Ionized Calcium 1.33 mmol/l (1.12-1.32)
[2024-08-17 20:11] LABS: Basophils # (auto) 0.07 K/uL (0.00-0.20); Basophils % (auto) 0.6 %; Eosinophils # (auto) 0.08 K/uL (0.00-0.50); Eosinophils % (auto) 0.7 %; Hematocrit (blood only) 44.8 % (42.0-52.0); Immature Granulocytes # (auto) 0.05 K/uL (0.01-0.20); Immature Granulocytes % (auto) 0.4 %; Lymphocytes # (auto) 3.31 K/uL (1.20-3.40); Lymphocytes % (auto) 26.9 %; Mean Corpuscular Hgb Conc 33.5 g/dL (32.0-36.0); Mean Corpuscular Volume 98.5 fL (80.0-100.0); Mean Platelet Volume 8.8 fL (9.4-12.4); Monocytes % (auto) 6.5 %; Neutrophils # (auto) 7.98 K/uL (1.40-6.50); Neutrophils % (auto) 64.9 %; Platelet Count 307 K/uL (130-400); RDW Coefficient of Variation 12.2 % (11.5-14.5); RDW Standard Deviation 43.8 fL (36.4-46.3); Red Blood Count 4.55 M/uL (4.70-6.10); White Blood Count 12.29 K/ul (4.8-10.8)
[2024-08-17] MEDS: LABETALOL HCL IV 5 MG/ML 20ML IV STA (20:28)
[2024-08-17] MEDS: LABETALOL HCL IV 5 MG/ML 20ML IV ONE (20:30)
[2024-08-17] MEDS ORDERED: No Aspirin within 24hrs of THROMBOLYTIC-Stroke PO SCH (20:30)
[2024-08-17 20:32] LABS: Albumin Globulin Ratio 1.5 (0.9-2); Albumin Level 5.1 gm/dl (3.4-5.0); Bilirubin,Total 0.7 mg/dl (0.2-1.0); Calcium 10.7 mg/dl (8.6-10.3); Creatinine Clr Calc Pharmacy 52.4 ml/min; Globulin 3.3 gm/dl (2.5-4.0); Magnesium 2.2 mg/dl (1.7-2.4); Potassium 3.9 mmol/L (3.5-5.1); Total Protein 8.4 gm/dl (6.0-8.3); Troponin I High Sensitivity 5.4 pg/ml (0-20)
--- NOTE | 2024-08-17 20:33 | CT Scan Report ---
Exam(s): CTA NECK With Contrast IV Amt: 118 cc opti 320 EXAM: CT Angiography Neck With Intravenous Contrast CLINICAL HISTORY: Reason for exam: neuro deficit, acute stroke suspected. TECHNIQUE: Routine carotid CT angiography protocol was performed with intravenous contrast. NASCET criteria using the distal ICAs for comparison were used for evaluation of stenoses. CTDI is 45.33 mGy and DLP is 774.27 mGy-cm. Automated exposure control was utilized for the study. A dose lowering technique was utilized adhering to the principles of ALARA. MIP reconstructed images were created and reviewed. CONTRAST: Patient received 118 cc opti 320 of IV contrast COMPARISON: None. FINDINGS: Right common carotid artery: Patent. Right internal carotid artery: Patent. Right vertebral artery: Patent. Right dominant system. Left common carotid artery: Patent. Left internal carotid artery: Patent. Left vertebral artery: Patent. Other: Mild to moderate bilateral carotid atherosclerosis, without significant stenosis. IMPRESSION: 1. No dissection, occlusion, or significant stenosis. CAROTID STENOSIS REFERENCE USING NASCET CRITERIA: % ICA stenosis = (1 - narrowest ICA diameter/diameter of distal cervical ICA) x 100. Mild - <50% stenosis. Moderate - 50-69% stenosis. Severe - 70-94% stenosis. Near occlusion - 95-99% stenosis. Occluded - 100% stenosis. Communications: Call Doctor Stroke Electronically signed by: Avril Edwards M.D. 08/17/24 20:33 PM
--- NOTE | 2024-08-17 20:33 | CT Scan Report ---
Exam(s): CT HEAD Without Contrast EXAM: CT Head Without Intravenous Contrast CLINICAL HISTORY: Reason for exam: neuro deficit, acute stroke suspected. TECHNIQUE: Axial computed tomography images of the head/brain without intravenous contrast. CTDI is 45.33 mGy and DLP is 774.27 mGy-cm. Automated exposure control was utilized for the study. A dose lowering technique was utilized adhering to the principles of ALARA. Moderate motion artifact. COMPARISON: None. FINDINGS: Brain: No mass effect or acute infarct. No acute hemorrhage. Mild atrophy and chronic white matter disease. Ventricles: No hydrocephalus or midline shift. Bones/joints: No acute finding. Soft tissues: No scalp hematoma. Visualized Sinuses: Clear. Mastoid air cells: No mastoid effusion. IMPRESSION: 1. Mild age-related findings. 2. No acute infarct, bleed, or acute intracranial abnormality. 3. Moderate motion artifact. Communications: Call Doctor Stroke Electronically signed by: Avril Edwards M.D. 08/17/24 20:32 PM
--- NOTE | 2024-08-17 20:33 | CT Scan Report ---
Exam(s): CTA HEAD With Contrast IV Amt: 118 ml opti 320 EXAM: CT Angiography Head With Intravenous Contrast CLINICAL HISTORY: Reason for exam: neuro deficit, acute stroke suspected. TECHNIQUE: Axial computed tomographic angiography images of the head with intravenous contrast. CTDI is 45.33 mGy and DLP is 774.27 mGy-cm. Automated exposure control was utilized for the study. A dose lowering technique was utilized adhering to the principles of ALARA. MIP reconstructed images were created and reviewed. Mild motion artifact and venous contamination mildly limited evaluation. CONTRAST: Patient received 118 ml opti 320 of IV contrast COMPARISON: Head CT done earlier. FINDINGS: Right internal carotid artery: Patent. Right anterior cerebral artery: Patent. Right middle cerebral artery: Patent. Right posterior cerebral artery: Patent. Right vertebral artery: Patent. Left internal carotid artery: Patent. Left anterior cerebral artery: Patent. Left middle cerebral artery: Patent. Left posterior cerebral artery: Patent. Left vertebral artery: Patent. Basilar artery: Patent. Other: Minimal atherosclerosis bilateral cavernous ICA without significant stenosis. IMPRESSION: 1. No aneurysm or large vessel occlusion. Communications: Call Doctor Stroke Electronically signed by: Avril Edwards M.D. 08/17/24 20:32 PM
[2024-08-17 20:35] LABS: INR 0.9 (0.9-1.1); Partial Thromboplastin Ratio 0.9; Partial Thromboplastin Time 24 Seconds (21-31); Prothrombin Time 10.3 Seconds (9.0-12.0)
[2024-08-17] MEDS: TENECTEPLASE 25 MG in SYRINGE 0 ML IV ONE (20:35)
[2024-08-17] MEDS: SODIUM CHLORIDE 0.9% 10ML FLUSH IV STA (20:36)
--- NOTE | 2024-08-17 21:34 | XRay Report ---
SINGLE VIEW CHEST CLINICAL HISTORY: Generalized weakness. FINDINGS: An AP, portable, upright chest radiograph is obtained. No prior studies are available for c omparison at the time of dictation. The examination is degraded by portable technique and apical lord otic positioning. The heart is mildly enlarged. The pulmonary vasculature is noncongested. There is m ild elevation of the right hemidiaphragm. Atelectasis is seen at the lung bases. The lungs and pleura l spaces are otherwise clear. No pneumothorax is seen. The skeletal structures appear osteopenic. The bony thorax is grossly intact. IMPRESSION: No acute cardiopulmonary abnormality is identified. ACT 112: Negative or not required by law. Electronically signed by: Joey Vo M.D. 08/17/2024 9:32 PM
--- NOTE | 2024-08-17 21:47 | History & Physical Report ---
Date of Service August 17, 2024 Assessment & Plan (1) Stroke-like symptoms: Plan: 68-year-old male with past medical history significant for dyslipidemia, prediabetes, COPD, hypertension, reflux esophagitis, osteoarthritis of knee and ankles, lumbar degenerative disc disease, avascular necrosis of left hip, comes because of strokelike symptoms. Today around 7:15 PM patient was was on his tree stand hunting and suddenly felt weak. Had difficulty getting down the tree but was able to get his stuff down and after that he fell. He felt weakness in the legs. His friend drove him for evaluation. Initially it seems he was having weakness in both legs more so on the right leg and some slurred speech and right facial droop. Stroke alert was called. Initial imaging studies were okay. Because of his symptoms Sofy telestroke decided to give TNK. Cu rrently patient is status post TNK. Seems symptoms much improved. He is speaking in full sentences. Currently no weakness noted and no facial droop noted. Family is in the room. Patient is somewhat tearful. Denies any headache. No blurred visions or double visions. No headache. No sore throat or cough. No recent fevers. No difficulty swallowing. States has some shortness of breath currently as he has COPD. No chest pains. No nausea. No abdominal pain. Normal bowel and bladder movements. Denies any blood in the stools or black stools. Patient had colonoscopy yesterday. No rashes. No swelling in the legs. Patient received a dose of labetalol prior to TNK. Strokelike symptoms Presented with weakness in the legs more on the right side. Some slurred speech and right facial droop Initial imaging studies okay Status post TNK Symptoms currently much improved No aspirin for [address] scan 24 hours post TNK Will follow MRI scan Neurochecks PT OT evaluation when stable Will monitor blood pressure Close monitoring ICU History of COPD We will continue home inhalers Hyperlipidemia On statin Will follow lipid profile Hypertension On Coreg, hydrochlorothiazide and lisinopril Monitor closely GERD Omeprazole Prediabetes Will follow HbA1c levels DVT prophylaxis SCDs Disposition ICU Full code. History of Present Illness Chief Complaint: Strokelike symptoms Primary Care Provider: ANGELES Rausch 68-year-old male with past medical history significant for dyslipidemia, prediabetes, COPD, hypertension, reflux esophagitis, osteoarthritis of knee and ankles, lumbar degenerative disc disease, avascular necrosis of left hip, comes because of strokelike symptoms. Today around 7:15 PM patient was was on his tree stand hunting and suddenly felt weak. Had difficulty getting down the tree but was able to get his stuff down and after that he fell. He felt weakness in the legs. His friend drove him for evaluation. Initially it seems he was having weakness in both legs more so on the right leg and some slurred speech and right facial droop. Stroke alert was called. Initial imaging studies were okay. Because of his symptoms Dow[place] telestroke decided to give TNK. Currently patient is status post TNK. Seems symptoms much improved. He is speaking in full sentences. Currently no weakness noted and no facial droop noted. Family is in the room. Patient is somewhat tearful. Denies any headache. No blurred visions or double visions. No headache. No sore throat or cough. No recent fevers. No difficulty swallowing. States has some shortness of breath currently as he has COPD. No chest pains. No nausea. No abdominal pain. Normal bowel and bladder movements. Denies any blood in the stools or black stools. Patient had colonoscopy yesterday. No rashes. No sw elling in the legs. Patient received a dose of labetalol prior to TNK. Past medical history. As mentioned above Past surgical history. Colonoscopy. Dental surgery. EGD with biopsy. Knee arthroscopy. Inguinal hernia repair. Shoulder surgery. Left hip replacement. Social history. . Quit smoking in 1975. Former user of smokeless tobacco quit in 1999. Smokes marijuana occasionally as per epic. No alcohol use. Allergies Allergy/AdvReac Type Severity Reaction Status Date / Time No Known Allergies Allergy Unverified 01/09/20 10:12 Home Medications Medication Instructions Recorded Confirmed Type albuterol sulfate 90 mcg/actuation 2 puff inhalation Q4H PRN 01/09/20 01/09/20 History aerosol inhaler Shortness Of Breath Or Wheezing amlodipine 10 mg tablet 10 mg PO QAM 01/09/20 01/09/20 History omeprazole 20 mg capsule,delayed 20 mg PO QAM 01/09/20 01/09/20 History release rosuvastatin 20 mg tablet 20 mg PO QAM 01/09/20 01/09/20 History hydralazine 25 mg tablet 25 mg PO TID #90 tabs 01/11/20 Rx oxycodone-acetaminophen 5 mg-325 1 tab PO Q6H PRN pain #20 tabs 06/16/22 Rx mg tablet (Percocet) Past Med/Surg History Problem List (Updated 08/17/24 @ 23:47 by Dave Thompson M.D.) Stroke-like symptoms (Acute) Acute kidney injury Obesity GERD (gastroesophageal reflux disease) Hypertension (Acute) Medical History (Updated 08/17/24 @ 23:47 by Dave Thompson M.D.) Osteoarthritis CKD (chronic kidney disease), stage III Asthma Right renal artery stenosis Hyperlipidemia Hypertension Renal colic on left side Surgical History (Updated 08/17/24 @ 22:01 by ANGELES Abebe) History of hip replacement History of arthroscopy of shoulder History of inguinal hernia repair Family History Mother Diabetes Hypertension Stroke Social History Smoking Status: Never smoker Hx Alcohol Use: Yes Alcohol type: beer Hx Substance Use: Yes Last Used Substance: Hours (ago) Substance Use Type Other:: smokes marijuana couple of times a week Preferred Language: Samoan Communication Ability: Effective Monorail Car Operator Required: No Beliefs That Will Affect Care: None Current Living Situation: Spouse and Family Other Information That Helps Us Care for You: No Feels Safe at Home: Yes Safety Concerns: Feels Safe At This Time Assistive Devices: Glasses Review of Systems Review of Systems: All systems reviewed & are unremarkable except as noted in HPI & below Physical Exam Physical Exam: General- Not in acute distress Head- atraumatic Eyes- PERRL, EOMI. ENT- oropharynx clear Neck- supple, no JVD. Lungs- clear to auscultation no wheezing or crackles Heart- regular rate and rhythm; no murmur, no gallop. Abdomen- normal bowel sounds, soft, nontender, no distension Extremities- no pretibial edema, no erythema seen Neuro- alert, oriented x 3; PERRL, EOMI; no facial palsy; no dysarthria; motor 5/5 bilaterally; sensations intact, No pronator drift,co ordination of movements normal. can lift and hold extremities. Skin- warm & dry Results & Data Results & Data Vital Signs (Past 12 Hours) Vital Signs Temp Pulse Pulse Resp BP BP Pulse Ox 08/17/24 21:35 83 19 127/93 93 08/17/24 21:20 87 24 131/87 92 08/17/24 21:05 85 22 140/97 93 08/17/24 20:50 88 22 131/91 93 08/17/24 20:42 83 18 142/85 H 93 08/17/24 20:35 80 19 146/96 H 93 08/17/24 20:28 90 145/107 H 08/17/24 20:21 91 H 18 145/107 H 95 08/17/24 20:10 95 H 16 160/117 H 95 08/17/24 20:09 96 H 08/17/24 19:47 36.0 C L 82 18 185/123 H 93 O2 Del Method 08/17/24 21:35 Room Air 08/17/24 21:20 Room Air 08/17/24 21:05 Room Air 08/17/24 20:50 Room Air 08/17/24 20:42 Room Air 08/17/24 20:35 Room Air 08/17/24 20:28 08/17/24 20:21 Room Air 08/17/24 20:10 Room Air 08/17/24 20:09 08/17/24 19:47 Room Air Diagnostic Findings Laboratory Results WBC 12.29 K/ul (4.8-10.8) H 08/17/24 19:45 RBC 4.55 M/uL (4.70-6.10) L 08/17/24 19:45 Hgb 15.0 g/dl (14.0-18.0) 08/17/24 19:45 POC Hgb 15.6 g/dl (14.0-18.0) 08/17/24 19:57 Hct 44.8 % (42.0-52.0) 08/17/24 19:45 POC Hct 46 % (42-52) 08/17/24 19:57 MCV 98.5 fL (80.0-100.0) 08/17/24 19:45 MCH 33.0 pg (25.0-34.0) 08/17/24 19:45 MCHC 33.5 g/dL (32.0-36.0) 08/17/24 19:45 RDW Std Deviation 43.8 fL (36.4-46.3) 08/17/24 19:45 RDW Coeff of Rhiannon 12.2 % (11.5-14.5) 08/17/24 19:45 Plt Count 307 K/uL (130-400) 08/17/24 19:45 MPV 8.8 fL (9.4-12.4) L 08/17/24 19:45 Immature Gran % (Auto) 0.4 % 08/17/24 19:45 Neut % (Auto) 64.9 % 08/17/24 19:45 Lymph % (Auto) 26.9 % 08/17/24 19:45 [place] % (Auto) 6.5 % 08/17/24 19:45 Eos % (Auto) 0.7 % 08/17/24 19:45 Baso % (Auto) 0.6 % 08/17/24 19:45 Neut # (Auto) 7.98 K/uL (1.40-6.50) H 08/17/24 19:45 Lymph # (Auto) 3.31 K/uL (1.20-3.40) 08/17/24 19:45 [place] # (Auto) 0.80 K/uL (0.11-0.59) H 08/17/24 19:45 Eos # (Auto) 0.08 K/uL (0.00-0.50) 08/17/24 19:45 Baso # (Auto) 0.07 K/uL (0.00-0.20) 08/17/24 19:45 Immature Gran # (Auto) 0.05 K/uL (0.01-0.20) 08/17/24 19:45 PT 10.3 Seconds (9.0-12.0) 08/17/24 19:45 INR 0.9 (0.9-1.1) 08/17/24 19:45 APTT 24 Seconds (21-31) 08/17/24 19:45 PTT Ratio 0.9 08/17/24 19:45 POC Sodium 140 mmol/L (135-144) 08/17/24 19:57 Sodium 141 mmol/L (136-145) 08/17/24 19:45 POC Potassium 4.0 mmol/L (3.3-5.0) 08/17/24 19:57 Potassium 3.9 mmol/L (3.5-5.1) 08/17/24 19:45 POC Chloride 104 mmol/L (101-112) 08/17/24 19:57 Chloride 102 mmol/L (98-107) 08/17/24 19:45 Carbon Dioxide 28 mmol/L (21-32) 08/17/24 19:45 POC Total CO2 26 mmol/L (24-31) 08/17/24 19:57 Anion Gap 11 (3-11) 08/17/24 19:45 POC Anion Gap 15.0 mmol/L (16-25) L 08/17/24 19:57 POC BUN 34 mg/dl (7-18) H 08/17/24 19:57 BUN 32 mg/dl (6-23) H 08/17/24 19:45 Creatinine 1.78 mg/dl (0.6-1.4) H 08/17/24 19:45 POC Creatinine 1.9 mg/dl (0.6-1.3) H 08/17/24 19:57 Est Cr Clr Drug Dosing 52.4 ml/min 08/17/24 19:45 eGFR 41.55 08/17/24 19:45 BUN/Creatinine Ratio 18.0 (10-20) 08/17/24 19:45 Glucose 130 mg/dl (70-99(Fasting)) H 08/17/24 19:45 POC Glucose 99 mg/dl (70-99) 08/17/24 20:14 POC Glucose (other) 129 mg/dl (70-99) H 08/17/24 19:57 Calcium 10.7 mg/dl (8.6-10.3) H 08/17/24 19:45 POC Ioniz Calcium Jannie 1.33 mmol/l (1.12-1.32) H 08/17/24 19:57 Magnesium 2.2 mg/dl (1.7-2.4) 08/17/24 19:45 Total Bilirubin 0.7 mg/dl (0.2-1.0) 08/17/24 19:45 AST 25 U/L (13-39) 08/17/24 19:45 ALT 27 U/L (7-52) 08/17/24 19:45 Alkaline Phosphatase 78 U/L (34-104) 08/17/24 19:45 Troponin I High Sens 5.4 pg/ml (0-20) 08/17/24 19:45 Total Protein 8.4 gm/dl (6.0-8.3) H 08/17/24 19:45 Albumin 5.1 gm/dl (3.4-5.0) H 08/17/24 19:45 Globulin 3.3 gm/dl (2.5-4.0) 08/17/24 19:45 Albumin/Globulin Ratio 1.5 (0.9-2) 08/17/24 19:45 SARS-CoV-2, RNA, NAAT NEGATIVE (NEGATIVE) 08/17/24 21:[address] 08/17/24 19:47 CR Exam(s): CT HEAD Without Contrast EXAM: CT Head Without Intravenous Contrast CLINICAL HISTORY: Reason for exam: neuro deficit, acute stroke suspected. TECHNIQUE: Axial computed tomography images of the head/brain without intravenous contrast. CTDI is 45.33 mGy and DLP is 774.27 mGy-cm. Automated exposure control was utilized for the study. A dose lowering technique was utilized adhering to the principles of ALARA. Moderate motion artifact. COMPARISON: None. FINDINGS: Brain: No mass effect or acute infarct. No acute hemorrhage. Mild atrophy and chronic white matter disease. Ventricles: No hydrocephalus or midline shift. Bones/joints: No acute finding. Soft tissues: No scalp hematoma. Visualized Sinuses: Clear. Mastoid air cells: No mastoid effusion. IMPRESSION: 1. Mild age-related findings. 2. No acute infarct, bleed, or acute intracranial abnormality. 3. Moderate motion artifact. Communications: Call Doctor Stroke Electronically signed by: Avril Edwards M.D. 08/17/24 20:32 PM Head CTA 08/17/24 19:47 CR Exam(s): CTA HEAD With Contrast IV Amt: 118 ml opti 320 EXAM: CT Angiography Head With Intravenous Contrast CLINICAL HISTORY: Reason for exam: neuro deficit, acute stroke suspected. TECHNIQUE: Axial computed tomographic angiography images of the head with intravenous contrast. CTDI is 45.33 mGy and DLP is 774.27 mGy-cm. Automated exposure control was utilized for the study. A dose lowering technique was utilized adhering to the principles of ALARA. MIP reconstructed images were created and reviewed. Mild motion artifact and venous contamination mildly limited evaluation. CONTRAST: Patient received 118 ml opti 320 of IV contrast COMPARISON: Head CT done earlier. FINDINGS: Right internal carotid artery: Patent. Right anterior cerebral artery: Patent. Right middle cerebral artery: Patent. Right posterior cerebral artery: Patent. Right vertebral artery: Patent. Left internal carotid artery: Patent. Left anterior cerebral artery: Patent. Left middle cerebral artery: Patent. Left posterior cerebral artery: Patent. Left vertebral artery: Patent. Basilar artery: Patent. Other: Minimal atherosclerosis bilateral cavernous ICA without significant stenosis. IMPRESSION: 1. No aneurysm or large vessel occlusion. Communications: Call Doctor Stroke Electronically signed by: Avril Edwards M.D. 08/17/24 20:32 PM Neck CTA 08/17/24 19:47 CR Exam(s): CTA NECK With Contrast IV Amt: 118 cc opti 320 EXAM: CT Angiography Neck With Intravenous Contrast CLINICAL HISTORY: Reason for exam: neuro deficit, acute stroke suspected. TECHNIQUE: Routine carotid CT angiography protocol was performed with intravenous contrast. NASCET criteria using the distal ICAs for comparison were used for evaluation of stenoses. CTDI is 45.33 mGy and DLP is 774.27 mGy-cm. Automated exposure control was utilized for the study. A dose lowering technique was utilized adhering to the principles of ALARA. MIP reconstructed images were created and reviewed. CONTRAST: Patient received 118 cc opti 320 of IV contrast COMPARISON: None. FINDINGS: Right common carotid artery: Patent. Right internal carotid artery: Patent. Right vertebral artery: Patent. Right dominant system. Left common carotid artery: Patent. Left internal carotid artery: Patent. Left vertebral artery: Patent. Other: Mild to moderate bilateral carotid atherosclerosis, without significant stenosis. IMPRESSION: 1. No dissection, occlusion, or significant stenosis. CAROTID STENOSIS REFERENCE USING NASCET CRITERIA: % ICA stenosis = (1 - narrowest ICA diameter/diameter of distal cervical ICA) x 100. Mild - <50% stenosis. Moderate - 50-69% stenosis. Severe - 70-94% stenosis. Near occlusion - 95-99% stenosis. Occluded - 100% stenosis. Communications: Call Doctor Stroke Electronically signed by: Avril Edwards M.D. 08/17/24 20:33 PM Chest X-Ray 08/17/24 20:13 SINGLE VIEW CHEST CLINICAL HISTORY: Generalized weakness. FINDINGS: An AP, portable, upright chest radiograph is obtained. No prior studies are available for comparison at the time of dictation. The examination is degraded by portable technique and apical lordotic positioning. The heart is mildly enlarged. The pulmonary vasculature is noncongested. There is mild elevation of the right hemidiaphragm. Atelectasis is seen at the lung bases. The lungs and pleural spaces are otherwise clear. No pneumothorax is seen. The skeletal structures appear osteopenic. The bony thorax is grossly intact. IMPRESSION: No acute cardiopulmonary abnormality is identified. ACT 112: Negative or not required by law. Electronically signed by: Joey Vo M.D. 08/17/2024 9:32 PM ECG Additional Comments: ECG. Normal sinus rhythm with rate of 88. Nonspecific ST and T wave abnormality. QTc 421. Code Status & VTE Plan VTE Prophylaxis Plan VTE Prophylaxis will be ordered: Yes
--- NOTE | 2024-08-17 21:49 | Critical Care Consultation ---
Date of Consultation August 17, 2024 Assessment & Plan (1) Stroke-like symptoms: (2) Hypertension: Plan Reason Critically Ill: 68 YOM presents to the EMD following stroke like symptoms with onset ~1914- deemed Thrombolytic candidate- received TNK at 2034. To the ICU for neurological and hemodynamic monitoring. Neuro - Stroke like symptoms- s/p thrombolytic administration CAM ICU: NEGATIVE - Stroke like symptoms- presenting with LLE weakness, left upper arm ataxia, s peech abnormality- TNK administered 2034, ETOH misuse - Risk factor- HTN, HLD, CKD, ETOH misuse- HILARIO - CT/CTA head and neck- negative for LVO, Aneurysm, Stenosis, or ICAD - 24 hour neurological exam- any change obtain non-con head CT - BP goals <180/105- allow for permissive hypertension- Labetalol as needed - hold home BP medications unless BP difficulty to control- do note hydralazine TID at home follow for reflex tachycardia - Hold other sedating medications-Percocet- - Atorvastatin 20mg- increase to high intensity dose - Lipid panel in am - HGBA1c in am - Telemetry for 24 hours eval for dysrhythmia- consider extended rythm monitoring if applicable - ECHO in am - STOP Bang- 5 - consider screening for JO as an outpatient - ETOH misuse- 4 alcoholic beverages per day- Alcoholic teas- follow AAWS hold sedating medications if able for now secondary need for acute neurological exams Cardiac - HTN, HLD - As above - no acute interventions at this time Respiratory - Hx Asthma/COPD - Continue MYLENE - no acute needs at this time - supplemental O2 for Spo2 >95 for 24 hours post TNK - Consider outpatient screening for JO GI - Hx GERD/esophagitis - Continue PPI RENAL/LYTES - CKD III, Hx renal artery stenosis - follow BMP daily - avoid further nephrotoxic medications - No acute needs ENDO - Elevated serum glucose without diagnosis of DM - ICU hyperglycemic protocol - HGBA1C in am- therapeutics as indicated HEME - NO acute needs MSK: Hx OA of knees and hips - reports taking increased Motrin for his pain in his knee- - educate patient on NSAID use with CKD- Tylenol while in house ID - mile leukocytosis which may be reactionary- no complaints or infectious sx prior to admission- will send urine cx to eval for occult stroke mimic. follow clinically LINES/IV ACCESS - PIV Continue use of these lines DVT PROPHYLAXIS - SCDS, chemoprophylaxis contraindicated following thrombolytics DISPO: ICU 24 hours post thrombolytics. I have personally spent 45 minutes of time in the direct management of this patient. This is a life/limb threatening event. This includes time spent evaluating patient, direct bedside care, chart review, placing orders, interpretation of diagnostic studies, discussion with consultants, patient, and family members, as well as other required patient management activities. This time is exclusive of all separately billable procedures, and separate from and in addition to any other critical care service time. Thank you for allowing us to participate in the care of this patient. Please refer to my attending physician's documentation for any further recommendations. History of Present Illness Reason for Consultation: Stroke like symptoms- s/p thrombolytics Requesting Physician: Thanh Tillman MD Attending Physician: Thanh Tillman MD History of Present Illness 68 YOM with medical history of: Unilateral HILARIO and HTN, CKD, HLD, Asthma/COPD, GERD, OA of knees and ankles, Kidney Stones, ETOH misuse, Marijuana use. Patient was brought to the [facility] today by friend following hunting this evening for concerns of stroke. Patient states that he got done hunting around 1915 this evening, and went to get down out of his tree stand, he felt "off" and felt like his legs weren't working well. He got to the ground and sat down as he felt his legs couldn't support him. He called his friend and reportedly he was having speech difficulty as well. He arrived to the [facility] and was STROKE ALERTED. He was noted to be hypertensive 180s/100s, underwent CT head, CTA of the head and neck. Hypertension was treated with Labetalol with good effect. TNK was administered at 2034 per JAN review. Upon my evaluation while he was still in the EMD, NIHSS- 0. He is accompanied by his family, who do confirm that he had speech difficulty and coordination difficulty with his left arm when they arrived. They feel he is almost back to normal, however feel he is still slow to respond to questions. Patient is also with emotional lability and tearful upon questioning. CODE: FULL Allergies Allergy/AdvReac Type Severity Reaction Status Date / Time No Known Allergies Allergy Unverified 01/09/20 10:12 Home Medications Medication Instructions Recorded Confirmed Type albuterol sulfate 90 mcg/actuation 2 puff inhalation Q4H PRN 01/09/20 01/09/20 History aerosol inhaler Shortness Of Breath Or Wheezing amlodipine 10 mg tablet 10 mg PO QAM 01/09/20 01/09/20 History omeprazole 20 mg capsule,delayed 20 mg PO QAM 01/09/20 01/09/20 History release rosuvastatin 20 mg tablet 20 mg PO QAM 01/09/20 01/09/20 History hydralazine 25 mg tablet 25 mg PO TID #90 tabs 01/11/20 Rx oxycodone-acetaminophen 5 mg-325 1 tab PO Q6H PRN pain #20 tabs 06/16/22 Rx mg tablet (Percocet) Patient History Medical History (Updated 08/17/24 @ 23:47 by Dave Thompson M.D.) Osteoarthritis CKD (chronic kidney disease), stage III Asthma Right renal artery stenosis Hyperlipidemia Hypertension Renal colic on left side Surgical History (Updated 08/17/24 @ 22:01 by ANGELES Abebe) History of hip replacement History of arthroscopy of shoulder History of inguinal hernia repair Family History Mother Diabetes Hypertension Stroke Social History Smoking Status: Never smoker Hx Alcohol Use: Yes Alcohol type: beer Hx Substance Use: Yes Last Used Substance: Hours (ago) Substance Use Type Other:: smokes marijuana couple of times a week Preferred Language: Arabic Communication Ability: Effective Whizzer Hand Required: No Beliefs That Will Affect Care: None Current Living Situation: Spouse and Family Other Information That Helps Us Care for You: No Feels Safe at Home: Yes Safety Concerns: Feels Safe At This Time Assistive Devices: Glasses Review of Systems Review of Systems: REVIEW OF SYSTEMS: Constitutional: No fever, sweats or chills Eyes: No diplopia, no worsening or blurred vision ENT: normal hearing, no trouble swallowing Respiratory: No cough, sputum, dyspnea at rest or on exertion Cardiovascular: No chest pain, tightness or palpitations Abdomen: No pain, nausea, vomiting, diarrhea or constipation Musculoskeletal: (+) right knee pain, calf pain, swelling Neurologic: (+)weakness, numbness/tingling, and balance problems, speech problem Psychiatric: No anxiety or depression Skin: No rash or itch Physical Exam Physical Exam: PHYSICAL EXAM: General: awake, alert, tearful Head: Normocephalic, atraumatic ENT: no pharyngeal exudate, mucous membranes moist Neuro: AAO x 3, speech clear and appropriate, PERRL, EOMI, strength intact bilaterally 5/5, sensation intact and equal all extremities and dermatomes, no pronator drift, no aphasia noted Chest: equal rise and fall of the chest, no accessory muscle use, no heaves or thrills, Clear to auscultation, on room air, Cardiac: Regular rate and rhythm, telemetry reviewed- NSR no ectopy, S1S2, skin warm dry, cap refill <3 seconds, peripheral pulses +2 no JVD, no murmur, no edema GI: NABS x 4 quadrants, soft, nontender to palpation, no rebound, guarding or tenderness : Spontaneously voiding, no pain, no CVA tenderness, Skin: no rash or erythema Results & Data Results & Data Vital Signs (Past 12 Hours) Vital Signs Temp Pulse Pulse Resp BP BP Pulse Ox 08/17/24 21:35 83 19 127/93 93 08/17/24 21:20 87 24 131/87 92 08/17/24 21:05 85 22 140/97 93 08/17/24 20:50 88 22 131/91 93 08/17/24 20:42 83 18 142/85 H 93 08/17/24 20:35 80 19 146/96 H 93 08/17/24 20:28 90 145/107 H 08/17/24 20:21 91 H 18 145/107 H 95 08/17/24 20:10 95 H 16 160/117 H 95 08/17/24 20:09 96 H 08/17/24 19:47 36.0 C L 82 18 185/123 H 93 O2 Del Method 08/17/24 21:35 Room Air 08/17/24 21:20 Room Air 08/17/24 21:05 Room Air 08/17/24 20:50 Room Air 08/17/24 20:42 Room Air 08/17/24 20:35 Room Air 08/17/24 20:28 08/17/24 20:21 Room Air 08/17/24 20:10 Room Air 08/17/24 20:09 08/17/24 19:47 Room Air Laboratory Results Abnormal lab results 08/17/24 08/17/24 Range/Units 19:45 19:57 WBC 12.29 H (4.8-10.8) K/ul RBC 4.55 L (4.70-6.10) M/uL MPV 8.8 L (9.4-12.4) fL Neut # (Auto) 7.98 H (1.40-6.50) K/uL [place] # (Auto) 0.80 H (0.11-0.59) K/uL POC Anion Gap 15.0 L (16-25) mmol/L POC BUN 34 H (7-18) mg/dl BUN 32 H (6-23) mg/dl Creatinine 1.78 H (0.6-1.4) mg/dl POC Creatinine 1.9 H (0.6-1.3) mg/dl Glucose 130 H (70-99(Fasting)) mg/dl POC Glucose (other) 129 H (70-99) mg/dl Calcium 10.7 H (8.6-10.3) mg/dl POC Ioniz Calcium Jannie 1.33 H (1.12-1.32) mmol/l Total Protein 8.4 H (6.0-8.3) gm/dl Albumin 5.1 H (3.4-5.0) gm/dl Diagnostic Findings Head CT 08/17/24 19:47 CR Exam(s): CT HEAD Without Contrast EXAM: CT Head Without Intravenous Contrast CLINICAL HISTORY: Reason for exam: neuro deficit, acute stroke suspected. TECHNIQUE: Axial computed tomography images of the head/brain without intravenous contrast. CTDI is 45.33 mGy and DLP is 774.27 mGy-cm. Automated exposure control was utilized for the study. A dose lowering technique was utilized adhering to the principles of ALARA. Moderate motion artifact. COMPARISON: None. FINDINGS: Brain: No mass effect or acute infarct. No acute hemorrhage. Mild atrophy and chronic white matter disease. Ventricles: No hydrocephalus or midline shift. Bones/joints: No acute finding. Soft tissues: No scalp hematoma. Visualized Sinuses: Clear. Mastoid air cells: No mastoid effusion. IMPRESSION: 1. Mild age-related findings. 2. No acute infarct, bleed, or acute intracranial abnormality. 3. Moderate motion artifact. Communications: Call Doctor Stroke Electronically signed by: Avril Edwards M.D. 08/17/24 20:32 PM Head CTA 08/17/24 19:47 CR Exam(s): CTA HEAD With Contrast IV Amt: 118 ml opti 320 EXAM: CT Angiography Head With Intravenous Contrast CLINICAL HISTORY: Reason for exam: neuro deficit, acute stroke suspected. TECHNIQUE: Axial computed tomographic angiography images of the head with intravenous contrast. CTDI is 45.33 mGy and DLP is 774.27 mGy-cm. Automated exposure control was utilized for the study. A dose lowering technique was utilized adhering to the principles of ALARA. MIP reconstructed images were created and reviewed. Mild motion artifact and venous contamination mildly limited evaluation. CONTRAST: Patient received 118 ml opti 320 of IV contrast COMPARISON: Head CT done earlier. FINDINGS: Right internal carotid artery: Patent. Right anterior cerebral artery: Patent. Right middle cerebral artery: Patent. Right posterior cerebral artery: Patent. Right vertebral artery: Patent. Left internal carotid artery: Patent. Left anterior cerebral artery: Patent. Left middle cerebral artery: Patent. Left posterior cerebral artery: Patent. Left vertebral artery: Patent. Basilar artery: Patent. Other: Minimal atherosclerosis bilateral cavernous ICA without significant stenosis. IMPRESSION: 1. No aneurysm or large vessel occlusion. Communications: Call Doctor Stroke Electronically signed by: Avril Edwards M.D. 08/17/24 20:32 PM Neck CTA 08/17/24 19:47 CR Exam(s): CTA NECK With Contrast IV Amt: 118 cc opti 320 EXAM: CT Angiography Neck With Intravenous Contrast CLINICAL HISTORY: Reason for exam: neuro deficit, acute stroke suspected. TECHNIQUE: Routine carotid CT angiography protocol was performed with intravenous contrast. NASCET criteria using the distal ICAs for comparison were used for evaluation of stenoses. CTDI is 45.33 mGy and DLP is 774.27 mGy-cm. Automated exposure control was utilized for the study. A dose lowering technique was utilized adhering to the principles of ALARA. MIP reconstructed images were created and reviewed. CONTRAST: Patient received 118 cc opti 320 of IV contrast COMPARISON: None. FINDINGS: Right common carotid artery: Patent. Right internal carotid artery: Patent. Right vertebral artery: Patent. Right dominant system. Left common carotid artery: Patent. Left internal carotid artery: Patent. Left vertebral artery: Patent. Other: Mild to moderate bilateral carotid atherosclerosis, without significant stenosis. IMPRESSION: 1. No dissection, occlusion, or significant stenosis. CAROTID STENOSIS REFERENCE USING NASCET CRITERIA: % ICA stenosis = (1 - narrowest ICA diameter/diameter of distal cervical ICA) x 100. Mild - <50% stenosis. Moderate - 50-69% stenosis. Severe - 70-94% stenosis. Near occlusion - 95-99% stenosis. Occluded - 100% stenosis. Communications: Call Doctor Stroke Electronically signed by: Avril Edwards M.D. 08/17/24 20:33 PM Chest X-Ray 08/17/24 20:13 SINGLE VIEW CHEST CLINICAL HISTORY: Generalized weakness. FINDINGS: An AP, portable, upright chest radiograph is obtained. No prior studies are available for comparison at the time of dictation. The examination is degraded by portable technique and apical lordotic positioning. The heart is mildly enlarged. The pulmonary vasculature is noncongested. There is mild elevation of the right hemidiaphragm. Atelectasis is seen at the lung bases. The lungs and pleural spaces are otherwise clear. No pneumothorax is seen. The skeletal structures appear osteopenic. The bony thorax is grossly intact. IMPRESSION: No acute cardiopulmonary abnormality is identified. ACT 112: Negative or not required by law. Electronically signed by: Joey Vo M.D. 08/17/2024 9:32 PM Medications Administered Discontinued Medications Home Medications albuterol sulfate 90 mcg/actuation aerosol inhaler 2 puff inhalation Q4H PRN Shortness Of Breath Or Wheezing 01/09/20 [History Confirmed 01/09/20] amlodipine 10 mg tablet 10 mg PO QAM 01/09/20 [History Confirmed 01/09/20] omeprazole 20 mg capsule,delayed release 20 mg PO QAM 01/09/20 [History Confirmed 01/09/20] rosuvastatin 20 mg tablet 20 mg PO QAM 01/09/20 [History Confirmed 01/09/20] hydralazine 25 mg tablet 25 mg PO TID #90 tabs 01/11/20 [Rx] oxycodone-acetaminophen 5 mg-325 mg tablet (Percocet) 1 tab PO Q6H PRN pain #20 tabs 06/16/22 [Rx] Active Medications Aspirin (No Aspirin Within 24hrs Of Thrombolytic-Stroke) 1 each PO UD PARUL Stop: 08/18/24 20:29 Tenecteplase 25 mg/ Syringe 5 mls @ 60 mls/min IV NOW ONE; Protocol Stop: 08/17/24 20:36 Last Admin: 08/17/24 20:35 Dose: 60 mls/min Documented By: HIRA Co-signed By: MORIAH Ioversol (Optiray 320 125ml) 118 ml IV ONCE ONE Stop: 08/17/24 20:02 Last Admin: 08/17/24 20:02 Dose: 118 ml Documented By: MARISSA Labetalol HCl (Labetalol Hcl Iv 5 Mg/Ml 20ml) 10 mg IV NOW STA Stop: 08/17/24 20:26 Last Admin: 08/17/24 20:28 Dose: 10 mg Documented By: HIRA Labetalol HCl (Labetalol Hcl Iv 5 Mg/Ml 20ml) Confirm Administered Dose 5 mg IV .STK-MED ONE Stop: 08/17/24 20:27 Last Admin: 08/17/24 20:30 Dose: Not Given Documented By: HIRA Sodium Chloride (Sodium Chloride 0.9% 10ml Flush) 20 ml IV NOW STA Stop: 08/17/24 20:26 Last Admin: 08/17/24 20:36 Dose: 20 ml Documented By: HIRA Coding Level of Care Code 38504 IN/OBS CONSULT LVL 3,45M Diagnoses Stroke-like symptoms R29.90 Hypertension I10 Hypertension type: unspecified (2) Hypertension Hypertension type: unspecified Qualified Code(s): I10 - Essential (primary) hypertension
[2024-08-17] MEDS ORDERED: ACETAMINOPHEN 325 MG TAB PO PRN (22:30)
[2024-08-17] MEDS ORDERED: PHARMACIST DISCHARGE MED REC CONSULT PRN (22:30)
[2024-08-17] MEDS ORDERED: ALBUTEROL HFA 8 GM INHALER INH PRN (22:30)
[2024-08-17] MEDS: SODIUM CHLORIDE 0.9% 1,000 ML IV SCH (22:59)
[2024-08-17] MEDS: STAT IV/IM STA (23:48)
[2024-08-18] MEDS: ICU Protocol for HYPERglycemia SCH (00:03)
[2024-08-18] MEDS: GADOBUTROL 65ML VIAL IV ONE (01:45)
--- NOTE | 2024-08-18 04:22 | Magnetic Resonance Report ---
Exam(s): MRI HEAD W/WO Contrast IV Amt: 11cc gadavist EXAM: MR Head Without and With Intravenous Contrast CLINICAL HISTORY: Reason for exam: cva.s/p tnk. TECHNIQUE: Magnetic resonance images of the head/brain without and with intravenous contrast in multiple planes. CONTRAST: Patient received 11cc gadavist of IV contrast COMPARISON: Prior head CT from August 17, 2024. FINDINGS: Brain: Mild nonspecific white matter changes. The flow voids of the base the brain are intact. No mass. No hemorrhage. No acute infarct. No evidence of abnormal enhancement. The dural venous sinuses are patent. Ventricles: Unremarkable. No ventriculomegaly. Bones/joints: Unremarkable. No acute fracture. Sinuses: Chronic maxillary and ethmoid sinusitis. No acute sinusitis. Mastoid air cells: Unremarkable as visualized. No mastoid effusion. Orbits: Unremarkable as visualized. IMPRESSION: No evidence of acute intracranial pathology. Electronically signed by: Danielle Altamirano MD 08/18/24 04:21 AM
[2024-08-18 04:23] LABS: Basophils # (auto) 0.05 K/uL (0.00-0.20); Basophils % (auto) 0.6 %; Eosinophils # (auto) 0.08 K/uL (0.00-0.50); Eosinophils % (auto) 0.9 %; Hemoglobin 11.7 g/dl (14.0-18.0); Immature Granulocytes # (auto) 0.03 K/uL (0.01-0.20); Immature Granulocytes % (auto) 0.3 %; Lymphocytes # (auto) 2.76 K/uL (1.20-3.40); Lymphocytes % (auto) 31.5 %; Mean Corpuscular Hemoglobin 32.1 pg (25.0-34.0); Mean Corpuscular Hgb Conc 32.5 g/dL (32.0-36.0); Mean Corpuscular Volume 98.6 fL (80.0-100.0); Monocytes # (auto) 0.78 K/uL (0.11-0.59); Monocytes % (auto) 8.9 %; Neutrophils # (auto) 5.06 K/uL (1.40-6.50); Neutrophils % (auto) 57.8 %; Platelet Count 236 K/uL (130-400); RDW Coefficient of Variation 12.2 % (11.5-14.5); RDW Standard Deviation 44.6 fL (36.4-46.3); Red Blood Count 3.65 M/uL (4.70-6.10); White Blood Count 8.76 K/ul (4.8-10.8)
[2024-08-18 04:41] LABS: BUN Creatinine Ratio 20.7 (10-20); Chol HDL Ratio 3.3 (0-5); Creatinine Clr Calc Pharmacy 52.8 ml/min; Magnesium 1.9 mg/dl (1.7-2.4); Potassium 3.7 mmol/L (3.5-5.1)
--- NOTE | 2024-08-18 07:05 | Critical Care Progress Note ---
Date of Service August 18, 2024 Assessment & Plan (1) Hypertensive urgency: (2) Acute renal failure superimposed on stage 3 chronic kidney disease: (3) Stroke-like symptoms: (4) Obesity: (5) GERD (gastroesophageal reflux disease): (6) Hypertension: Plan Reason Critically Ill: Pt is a 68 yo M presents to the hospital following stroke like symptoms with onset ~1914 on 08/17- deemed Thrombolytic candidate- received TNK at 2034 on 08/17. To the ICU for neurological and hemodynamic monitoring. Neuro - Stroke like symptoms- s/p thrombolytic administration CAM ICU: NEGATIVE - Stroke like symptoms- presenting with LLE weakness, left upper arm ataxia, speech abnormality- TNK administered 08/17, ETOH misuse noted - Risk factor- HTN, HLD, CKD, ETOH misuse- HILARIO - CT/CTA head and neck- negative for LVO, Aneurysm, Stenosis, or ICAD, brain MRI neg for acute pathology - 24 hour neurological exam- if any change, will obtain non-con head CT - BP goals <180/105- allow for permissive hypertension- Labetalol as needed - hold home BP medications unless BP difficulty to control- do note hydralazine TID at home, follow for reflex tachycardia - Hold other sedating medications-Percocet- - lipids TChol 160, LDL 64, triglyc 242; home atorvastatin increased from 20 to 40 mg (high intesnity) - echo; pending - UDS for marijuana, MDMA, and amphetamines; pt does admit marijuana use - pt most likely had TIA in the setting of negative scans and improved symptoms - ETOH misuse- 4 alcoholic beverages per day- Alcoholic teas- follow AAWS hold sedating medications if able for now secondary need for acute neurological exams Cardiac - HTN, HLD - As above - no acute interventions at this time Respiratory - Hx Asthma/COPD - Continue MYLENE - no acute needs at this time - supplemental O2 for Spo2 >95 for 24 hours post TNK - STOP Bang- 5 - consider screening for JO as an outpatient GI - Hx GERD/esophagitis - Continue PPI RENAL/LYTES - CKD III, Hx renal artery stenosis - follow BMP daily - avoid further nephrotoxic medications - No acute needs ENDO - Elevated serum glucose without diagnosis of DM - ICU hyperglycemic protocol - HA1c 5.8%, HEME - No acute needs MSK: Hx OA of knees and hips - reports taking increased Motrin for his pain in his knee- - educate patient on NSAID use with CKD- Tylenol while in house ID - mile leukocytosis on admission 12 resolved to 8 today, most likely reactionary LINES/IV ACCESS - PIV Continue use of these lines DVT PROPHYLAXIS - SCDS, chemoprophylaxis contraindicated following thrombolytics DISPO: ICU 24 hours post thrombolytics. Admission and Anticipated Discharge Date Admission Date: August 17, 2024 Supervising Physician Co-Signing Physician Notes Was the resident-physician during care of patient. I separately evaluated patient for galarza portions of the history and the exam. I was present during the critical portion of medical decision making, and I discussed the case with the resident. I generally agree with the findings and plan except for any additions/exceptions noted. Patient was seen and examined at bedside. No acute distress, no adverse events overnight Blood pressure was 103/80, saturation was 93-94% on room air. Denied any chest pain, no headache, no nausea, no vomiting No abdominal pain No blurry vision No difficulty swallowing Constitutional: No acute distress HEENT: EOMI, PERRLA Respiratory system: Good air entry bilaterally, no wheeze, no rhonchi, no crackles CVS: S1-S2 positive, no murmurs or gallops Abdomen: Soft, nontender, nondistended, positive bowel sounds x4, obese Extremities: +2 pulses bilaterally radialis/ dorsalis pedis, no cyanosis, no edema Neuro: Awake alert oriented x3 Psych: Normal mood and affect G/U: No Mccormack --Prophylaxis VTE: Compression boots GI: Pantoprazole Lines: Peripheral Diet: Cardiac Plan: In/out: -65, urine output 565 Potassium and magnesium are being replaced. Patient's UDS was positive for marijuana, amphetamine as well as MDMA. Patient is not on any medications which can give falsely positive results. Patient does smoke marijuana on a regular basis and recently he got marijuana from a dealer. Which could have been laced with amphetamine and MDMA. This could be the reason for everything given that the CTA head, MRI of the brain neck CTA were all negative Neurology on board Follow-up CT head later today. If that is stable then patient okay to be downgraded Case was discussed with primary team Please note the above document was generated using voice recognition software. It may contain grammatical, syntax or spelling errors.Any formal questions or concerns about the content, text or information contained within the body of this dictation should be directly addressed to the provider for clarification. Subjective Today, pt states he is feeling okay. He states he still feels like his legs are weaker than usual. He states he does have some knee arthritis and COPD so he cannot run or walk fast usually but he just feels like his legs are a little bit weak since the incident yesterday. He states he use to smoke 1 ppd for 10 years, quit 40 years ago. Other than the leg weakness, no complaints. No chest pain, SOB, nausea, vomiting, or headache today. Review of Systems Review of Systems: All systems reviewed & are unremarkable except as noted in HPI & below Physical Exam Physical Exam: General: Alert and oriented, no acute distress, speech clear with no obvious f acial droop HEENT: Normocephalic, atraumatic, EOMI Resp: Lungs clear to auscultation bilaterally, no increased work of breathing Cardio: Regular rate and rhythm, GI: Soft and nontender, some distention noted, bowel sounds active Skin: Warm, dry, no rashes on visible skin Neuro: Gross sensation of LEs intact, 5/5 strength in bilateral hip flexion. knee flexion, and dorsi/plantar flexion, counter tender strength 5/5 bilaterally Results & Data Results & Data Vital Signs (Past 12 Hours) Vital Signs Temp Pulse Pulse Resp BP BP Pulse Ox 08/18/24 06:36 68 22 118/55 L 92 08/18/24 05:36 71 12 115/63 95 08/18/24 04:36 69 12 106/53 L 92 08/18/24 04:06 72 14 106/59 L 95 08/18/24 03:36 36.4 C L 71 12 99/57 L 93 08/18/24 03:06 72 10 L 100/59 L 93 08/18/24 02:36 76 16 105/60 92 08/18/24 02:06 77 13 123/71 94 08/18/24 01:06 75 12 94/65 L 93 08/18/24 00:36 82 20 108/74 93 08/18/24 00:05 76 13 93/56 L 93 08/17/24 23:36 85 20 96/65 L 91 08/17/24 23:30 82 08/17/24 23:06 89 16 136/78 92 08/17/24 22:36 88 20 118/74 94 08/17/24 22:30 08/17/24 22:21 36.3 C L 86 15 123/70 94 08/17/24 22:05 85 17 92/69 L 91 08/17/24 21:50 83 21 107/88 91 08/17/24 21:35 83 19 127/93 93 08/17/24 21:20 87 24 131/87 92 08/17/24 21:05 85 22 140/97 93 08/17/24 20:50 88 22 131/91 93 08/17/24 20:42 83 18 142/85 H 93 08/17/24 20:35 80 19 146/96 H 93 08/17/24 20:28 90 145/107 H 08/17/24 20:21 91 H 18 145/107 H 95 08/17/24 20:10 95 H 16 160/117 H 95 08/17/24 20:09 96 H 08/17/24 19:47 36.0 C L 82 18 185/123 H 93 O2 Del Method O2 Del Method O2 Flow Rate 08/18/24 06:36 Room Air 08/18/24 05:36 Room Air 08/18/24 04:36 Room Air 08/18/24 04:06 Room Air 08/18/24 03:36 Room Air 08/18/24 03:06 Room Air 08/18/24 02:36 Room Air 08/18/24 02:06 Room Air 08/18/24 01:06 Nasal Cannula 2 08/18/24 00:36 Nasal Cannula 2 08/18/24 00:05 Nasal Cannula 2 08/17/24 23:36 Room Air 08/17/24 23:30 08/17/24 23:06 Room Air 08/17/24 22:36 Room Air 08/17/24 22:30 Room Air 08/17/24 22:21 Room Air 08/17/24 22:05 Room Air 08/17/24 21:50 Room Air 08/17/24 21:35 Room Air 08/17/24 21:20 Room Air 08/17/24 21:05 Room Air 08/17/24 20:50 Room Air 08/17/24 20:42 Room Air 08/17/24 20:35 Room Air 08/17/24 20:28 08/17/24 20:21 Room Air 08/17/24 20:10 Room Air 08/17/24 20:09 08/17/24 19:47 Room Air Resident Activity Tracking Resident Involvement: Resident Care Provided Care Provided: Adult Hospital Medicine (6) Hypertension Hypertension type: unspecified Qualified Code(s): I10 - Essential (primary) hypertension
[2024-08-18 07:14] LABS: Estimated Average Glucose 120 mg/dl; Hemoglobin A1C 5.8 % (4.5-5.6)
[2024-08-18 07:50] LABS: Appearance Urine Clear (Clear); Bilirubin Urine Negative (Negative); Blood Urine Negative (Negative); Color Urine Yellow; Glucose Urine UA Negative (Negative); Ketones Urine Negative (Negative); Leukocyte Esterase Urine Negative (Negative); Nitrite Urine Negative (Negative); Protein Urine Negative (Negative); Specific Gravity Urine > 1.045 (1.000-1.030); Urobilinogen Urine Negative (Negative); pH Urine 5.5 (4.5-7.5)
--- NOTE | 2024-08-18 07:50 | Billing Data ---
Date of Service August 18, 2024 Coding Level of Care Code 44563 SUB INP/OBS CARE MIN
[2024-08-18] MEDS: POTASSIUM CHLORIDE CRTAB 20 MEQ TABCR PO STA (07:58)
[2024-08-18] MEDS: MAGNESIUM SULFATE / D5W 1 GM/100 ML BAG IV ONE (07:58)
[2024-08-18 08:27] LABS: Amphetamines+Metham, Urine Pos (Neg); Barbiturates, Urine Neg (Neg); Benzodiazepine, Urine Neg (Neg); Cocaine, Urine Neg (Neg); Fentanyl, Urine Neg (Neg); MDMA (Ecstacy), Urine Pos (Neg); Marijuana, Urine Pos (Neg); Methadone, Urine Neg (Neg); Opiate, Urine Neg (Neg); Phencyclidine, Urine Neg (Neg)
--- NOTE | 2024-08-18 08:27 | Nephrology Consultation ---
Date of Consultation August 18, 2024 Assessment & Plan (1) Acute kidney injury: Stage 2 PB w/ baseline creatinine 0.9-1.0 and presenting creatinine 1.9, improved today to 1.7. urinary sediment bland. chemistries/volume status acceptable. despite urinary sediment suspect renal ischemia from uncontrolled HTN in background of MDMA use (? if THC laced w/ this unknown to pt?) and w/ prior risk ff of resistant HTN, HILARIO; also s/p IV con for CT -suggest another L NS to help mitigate intense renal ischemia from labile HTN, MDMA, IV con and to support BP (see below) -encourage fluid intake -strict I/0 -daily BMP >BP targets/ IVF as below -cont to hold hctz/ACEI; hold coreg until PM at least care coordinated w/ dr Cortes re dxs, MDMA source, BP targets/meds, IVF; we are in agreement. Critical care and neuro input sought but they were involved w/ acute issues for a critically ill patient. (2) Hypertensive emergency, no CHF: resolved/improved hypertensive emergency after presenting w/ stroke like sx in the setting of MDMA use and w/ PB on the background of resistant HTN, mild R HILARIO; s/p thrombolytic therapy. Telestroke c/s reviewed. -imaging does not to me support dx of ischemic stroke but defer to local neurology findings -continue cardiac monitoring >>>suggest the following BP targets moving forward but defer ultimately to neuro if they consider this an ischemic stroke -until 1999 today, target BP SBP 130-150 -after 1999 today, target BP <130/80 Have ordered the following: >>suggest NS at 100-125 mL hourly w/ close monitoring to increase SBP toward targets above >coreg held until this PM -hold all BP agents at this time/ use PRN to hit targets above (3) Resistant hypertension: on full dose 3 agents as OP and still w/ suboptimal outpatient control; no albuminuria >recommend OP neph f/u to optimize and reevaluate question of HILARIO (4) Right renal artery stenosis: -if renal function improves can consider brandt evaluation w/ CTA v MRI as OP; mild in 2019 but reasonable after this to update status; doubt role here though as had no flash pulmonary edema Plan critically ill patient at risk for severe outcomes including worsening PB, stroke, complications of thrombolytics History of Present Illness Reason for Consultation: PB v CKD Requesting Physician: Dr Tillman Attending Physician: Eddi Cortes, DO History of Present Illness 68 y/o M whom I'm asked to see for PB v CKD was admitted yesterday evening w/ stroke like sx and is s/p thrombolytic therapy. Tox screen positive for ecstasy, THC. PMH includes HTN, mild unilateral renal artery stenosis, CKD, stones, asthma/COPD, GERD, BL knee/ankle OA, EtOH/THC use. R HILARIO was discovered during 2019 admission here for stage 3 PB (presenting creatinine 6.8 from baseline 1.1 in setting of nsaid, hctz, ACEI) and w/ uncontrolled HTN. in the wake of 2019 admission, he followed w/ nephro for about a year w/ full renal recovery; was unable/unwilling to stop nsaids and was referred back to PCP for further mgt on this. Earlier this year, his creatinine remained at a baseline of 0.9-1.0 and no albuminuria. His outpatient SBP runs 120-140s in 2023 on max dose of 3 agents. His presenting creatinine was 1.9; at 1.7 this AM. SBP last evening generally 140s for first 2 hours after presentation, then 90s-100s primarily overnight though some readings to 120s; then from 0116-3115 SBP 110-120s. He had one dose of IV labetalol in ER, 1L NS, and after that no BP meds so far, though coreg ordered He had been out hunting last evening and came to ED b/c unable to stand/legs not supporting him and speech difficulty. CTA head/neck done last evening. Presenting HTN 180s/100s responded quickly to labetalol as above. No hyperthermia. Noted in ER to have ongoing L arm coordination challenges and still slow processing. today at evaluation w/ me he denies residual deficits; denies chest pain palpitations focal numbness/weakness, edema, MDMA use. endorses mild SOB; no orthopnea. no cough. no new/worrisome voiding concerns or rash. no n/v/d/abd or flank pain. stable BL knee pain. Allergies Allergy/AdvReac Type Severity Reaction Status Date / Time No Known Allergies Allergy Unverified 01/09/20 10:12 Home Medications Medication Instructions Recorded Confirmed Type carvedilol 25 mg tablet 25 mg PO BID 08/18/24 08/18/24 History fluticasone propionate 115 2 puff inhalation BID 08/18/24 08/18/24 History mcg-salmeterol 21 mcg/actuation HFA inhaler (Advair HFA) fosinopril 40 mg tablet 40 mg PO DAILY 08/18/24 08/18/24 History hydrochlorothiazide 25 mg tablet 25 mg PO DAILY 08/18/24 08/18/24 History omeprazole 20 mg capsule,delayed 20 mg PO DAILY 08/18/24 08/18/24 History release rosuvastatin 20 mg tablet 20 mg PO DAILY 08/18/24 08/18/24 History Patient History Medical History (Updated 08/18/24 @ 11:13 by Eddi Cortes DO) Resistant hypertension Osteoarthritis Asthma Right renal artery stenosis Hyperlipidemia Renal colic on left side Surgical History (Updated 08/17/24 @ 22:01 by ANGELES Abebe) History of hip replacement History of arthroscopy of shoulder History of inguinal hernia repair Family History Mother Diabetes Hypertension Stroke Social History Smoking Status: Never smoker Hx Alcohol Use: Yes Alcohol type: beer Hx Substance Use: Yes Last Used Substance: Hours (ago) Substance Use Type Other:: smokes marijuana couple of times a week Preferred Language: Urdu Communication Ability: Effective Diet Supervisor Required: No Beliefs That Will Affect Care: None Current Living Situation: Spouse and Family Other Information That Helps Us Care for You: No Feels Safe at Home: Yes Safety Concerns: Feels Safe At This Time Assistive Devices: None Review of Systems 2 Review of Systems: All systems reviewed & are unremarkable except as noted in HPI & below Physical Exam 2 Constitutional: well developed (maneuvers easily/independently for exam), well nourished and cooperative; no acute distress and not intoxicated appearing Eyes: EOM intact bilaterally ENMT: Mouth: + dry oral mucous membranes Respiratory: normal respiratory effort Auscultation: lungs clear to auscultation bilaterally and + diminished lung sounds Cardiovascular: RRR, no murmur, no edema Vessels: no renal bruit Gastrointestinal (Abdomen): Inspection/Auscultation: normal bowel sounds P ercussion/Palpation: abdomen soft; abdomen nontender Musculoskeletal: Extremities: strength 5/5 throughout Skin: no rashes, warm and dry Neurologic: menon, fluent speech, no tremor Psychiatric: Orientation: alert and oriented x 3 Results & Data Vital Signs (Past 12 Hours) Vital Signs Temp Pulse Pulse Resp BP BP Pulse Ox 08/18/24 07:35 36.5 C 71 13 116/75 96 08/18/24 06:36 68 22 118/55 L 92 08/18/24 05:36 71 12 115/63 95 08/18/24 04:36 69 12 106/53 L 92 08/18/24 04:06 72 14 106/59 L 95 08/18/24 03:36 36.4 C L 71 12 99/57 L 93 08/18/24 03:06 72 10 L 100/59 L 93 08/18/24 02:36 76 16 105/60 92 08/18/24 02:06 77 13 123/71 94 08/18/24 01:06 75 12 94/65 L 93 08/18/24 00:36 82 20 108/74 93 08/18/24 00:05 76 13 93/56 L 93 08/17/24 23:36 85 20 96/65 L 91 08/17/24 23:30 82 08/17/24 23:06 89 16 136/78 92 08/17/24 22:36 88 20 118/74 94 08/17/24 22:30 08/17/24 22:21 36.3 C L 86 15 123/70 94 08/17/24 22:05 85 17 92/69 L 91 08/17/24 21:50 83 21 107/88 91 08/17/24 21:35 83 19 127/93 93 08/17/24 21:20 87 24 131/87 92 08/17/24 21:05 85 22 140/97 93 08/17/24 20:50 88 22 131/91 93 08/17/24 20:42 83 18 142/85 H 93 08/17/24 20:35 80 19 146/96 H 93 08/17/24 20:28 90 145/107 H O2 Del Method O2 Del Method O2 Flow Rate 08/18/24 07:35 Room Air 08/18/24 06:36 Room Air 08/18/24 05:36 Room Air 08/18/24 04:36 Room Air 08/18/24 04:06 Room Air 08/18/24 03:36 Room Air 08/18/24 03:06 Room Air 08/18/24 02:36 Room Air 08/18/24 02:06 Room Air 08/18/24 01:06 Nasal Cannula 2 08/18/24 00:36 Nasal Cannula 2 08/18/24 00:05 Nasal Cannula 2 08/17/24 23:36 Room Air 08/17/24 23:30 08/17/24 23:06 Room Air 08/17/24 22:36 Room Air 08/17/24 22:30 Room Air 08/17/24 22:21 Room Air 08/17/24 22:05 Room Air 08/17/24 21:50 Room Air 08/17/24 21:35 Room Air 08/17/24 21:20 Room Air 08/17/24 21:05 Room Air 08/17/24 20:50 Room Air 08/17/24 20:42 Room Air 08/17/24 20:35 Room Air 08/17/24 20:28 Laboratory Results 08/18/24 03:49 08/18/24 03:49 UA from today bland sediment and > 1045 SG Diagnostic Findings Brain MRI, Head/neck CTA, Head CT > no acute IC process; no stenosis or dissection; mild age-related changes CXR (image personally reviewed) > looks like very mild vascular congestion to me but read as no acute process CP/clear 2019 Renal artery duplex 1. Focally elevated velocity in the mid right renal artery consistent with renal artery stenosis. 2. No evidence of renal artery stenosis on the left.
[2024-08-18] MEDS ORDERED: PANTOprazole 40 MG TAB PO SCH (09:00)
[2024-08-18] MEDS ORDERED: lisinopril 40 MG TAB PO SCH (09:00)
[2024-08-18] MEDS ORDERED: ROSUVASTATIN CALCIUM 20 MG TAB PO SCH (09:00)
[2024-08-18] MEDS: carvediloL 25 MG TAB PO SCH (09:51)
[2024-08-18] MEDS: ROSUVASTATIN CALCIUM 20 MG TAB PO SCH (09:52)
[2024-08-18] MEDS: PANTOprazole 40 MG TAB PO SCH (09:52)
[2024-08-18] MEDS: FLUTICASONE/VILANTEROL 100/25MCG 14 PUFFS/INHALER INH SCH (09:52)
--- NOTE | 2024-08-18 11:16 | Hospitalist Progress Note ---
Date of Service August 18, 2024 Assessment & Plan (1) Toxic metabolic encephalopathy: (2) Accidental marijuana poisoning: Plan: Suspect marijuana may have been laced with ecstasy/methamphetamine (3) Acute renal failure superimposed on stage 3 chronic kidney disease: Plan: Suspect due to NSAIDs (4) Hypertensive urgency: (5) Osteoarthritis: Plan Patient presented to the emergency department with altered neurological status with slurred speech and leg weakness. He is evaluated acute stroke and given TNK. MRI of the brain negative for acute stroke. Subsequent objective data and history points to that patient may have had an acute overdose/intoxication of his marijuana laced with ecstasy. Patient is acute renal dysfunction due to use of NSAIDs. This then altered his blood pressure and caused him to be quite hypertensive at the time of admission as well. Patient essentially back to his baseline., Blood pressure actually running low today and his BP medications have been held. Communication with nephrology, Dr. Raymundo, will give some additional fluids for his renal dysfunction and blood pressure Communication with internal controls consultant. Agree with suspected etiology of the patient's symptoms due to his tainted marijuana. No evidence of ischemic brain event. Follow-up CT of the head later on today per protocol Increase activity Continue to monitor blood pressure Follow renal function Anticipate discharge within next 24 hours if no other acute issues. Admission and Anticipated Discharge Date Admission Date: August 17, 2024 Subjective Patient feels as though his legs are still little bit weak. He does admit to smoking marijuana. He admits to smoking marijuana on the day that he was admitted. He states this last batch of marijuana he did get from someone that he was not familiar with. He states that usually he grows his own. Patient states he did not fall from the tree stand. No sustained injury. Only when he got down standing on the ground from the tree stand that his legs seem to be weak and give out. Additionally patient reports that he has been taking a fair amount of ibuprofen over the past several weeks due to knee osteoarthritis Physical Exam Physical Exam: Constitutional: Alert HEENT: Mucous membranes moist. Lungs: Clear to auscultation, decreased, no wheezes rales or rhonchi CV: S1-S2, regular Abdomen: Soft, nontender, nondistended Extremities: No significant edema Neuro: No focal deficits, no discernible lower extremity weakness Psych: Cooperative, normal mood Results & Data Results & Data Vital Signs (Past 12 Hours) Vital Signs Temp Pulse Pulse Resp BP Pulse Ox O2 Del Method 08/18/24 10:35 36.4 C L 76 13 116/67 94 Room Air 08/18/24 09:35 36.4 C L 75 11 L 95/64 L 92 Room Air 08/18/24 08:35 36.5 C 81 18 127/64 94 Room Air 08/18/24 07:35 36.5 C 71 13 116/75 96 Room Air 08/18/24 06:36 68 22 118/55 L 92 Room Air 08/18/24 05:36 71 12 115/63 95 Room Air 08/18/24 04:36 69 12 106/53 L 92 Room Air 08/18/24 04:06 72 14 106/59 L 95 Room Air 08/18/24 03:36 36.4 C L 71 12 99/57 L 93 Room Air 08/18/24 03:06 72 10 L 100/59 L 93 Room Air 08/18/24 02:36 76 16 105/60 92 Room Air 08/18/24 02:06 77 13 123/71 94 Room Air 08/18/24 01:06 75 12 94/65 L 93 Nasal Cannula 08/18/24 00:36 82 20 108/74 93 Nasal Cannula 08/18/24 00:05 76 13 93/56 L 93 Nasal Cannula 08/17/24 23:36 85 20 96/65 L 91 Room Air 08/17/24 23:30 82 O2 Flow Rate 08/18/24 10:35 08/18/24 09:35 08/18/24 08:35 08/18/24 07:35 08/18/24 06:36 08/18/24 05:36 08/18/24 04:36 08/18/24 04:06 08/18/24 03:36 08/18/24 03:06 08/18/24 02:36 08/18/24 02:06 08/18/24 01:06 2 08/18/24 00:36 2 08/18/24 00:05 2 08/17/24 23:36 08/17/24 23:30 Diagnostic Findings Reviewed imaging, laboratory and diagnostic studies. Pertinent findings as below. MRI of the brain negative for acute stroke Hemoglobin 11.7 Creatinine 1.69 Urine drug screen positive for methamphetamine, ecstasy, marijuana
[2024-08-18] MEDS: SODIUM BICARB 8.4% INJ 50 MEQ/50 ML SYR IV ONE (12:06)
[2024-08-18] MEDS: RAPID SEQUENCE INDUCTION BAG ONE (12:06)
[2024-08-18] MEDS: SODIUM CHLORIDE 0.9% 1,000 ML IV SCH (12:50)
--- OUTSIDE RECORDS SUMMARY | 2024-08-18 13:24 | External Medical Summary | Summary of Care ---
Author Name Unknown Organization [facility] Address [address] [place] [address] Phone [phone] Care Team Providers Care Maintenance Team Member Name Role Phone Kaitlin Frye ANGELES Primary Care Provider +1- [phone] Reason for Visit * Reason Comments Pain Encounter Details Date Type Department Care Team (Latest Contact Info) Description 08/14/2024 1:15 PM EDT Telemedicine Orthopaedics [facility] [address] [place] [address] Mesfin Rodriguez MD [address] [place] [address] Primary osteoarthritis of right knee* Allergies No known active allergiesdocumented as of this encounter (statuses as of 08/14/2024) Medications Medication Sig Dispensed Refills Start Date End Date Status Fluticasone Propionate 50 MCG/ACT Nasal Suspension (Flonase)Indication s:Chronic rhinitis Administer 2 Sprays into each nostril in the morning. 16 g 12/20/2023 Active Carvedilol 25 MG Oral Tablet (Coreg)Indications: HTN, goal below 130/80 Take 1 Tablet by mouth in the morning and 1 Tablet before bedtime. with food. 60 Tablet 12/20/2023 Active hydroCHLOROthiazide 25 MG Oral Tablet (Hydrodiuril)Indica tions:HTN, goal below 130/80 Take 1 Tablet by mouth in the morning. 90 Tablet 3 01/06/2024 Active Fosinopril Sodium 40 MG Oral Tablet (Monopril)Indicatio ns:HTN, goal below 130/80 Take 1 Tablet by mouth in the morning. 90 Tablet 2 03/29/2024 Active Advair HFA 115-21 MCG/ACT Inhalation Aerosol Inhale 2 Puffs by mouth in the morning and 2 Puffs before bedtime. 12 g 2 05/15/2024 Active Rosuvastatin Calcium 20 MG Oral Tablet (Crestor)Indication s:Dyslipidemia Take 1 Tablet by mouth in the morning. 90 Tablet 3 08/08/2024 Active Omeprazole 20 MG Oral Capsule Delayed Release (PriLOSEC)Indicatio ns:Gastroesophageal reflux disease without esophagitis Take 1 Capsule by mouth in the morning. 1 hour before the first meal of the day. 30 Capsule 5 08/08/2024 Active documented as of this encounter (statuses as of 08/14/2024) Active Problems Problem Noted Date Diagnosed Date Hx of actinic keratosis 02/15/2023 COPD, group B, by GOLD 2017 classification 02/15 Overview: Per COPD GOLD Classification Avascular necrosis of hip, left 01/28/2023 Status post right hip replacement 03/31/2022 Prediabetes 03/13/2022 Dyslipidemia 01/19/2022 Lumbar degenerative disc disease 05/22/2021 Left lumbar radiculopathy 05/22/2021 Primary osteoarthritis of left hip 05/22/2021 Gastroesophageal reflux disease without esophagi tis 03/17/2021 HTN, goal below 130/80 03/17/2021 Primary osteoarthritis of both ankles 03/17/2021 Patellofemoral syndrome of left knee 03/17/2021 Primary osteoarthritis of left knee 03/17/2021 Dermatitis 11/05/2016 Elevated blood pressure, situational 08/06/2014 Reflux esophagitis 05/03/2013 Dyslipidemia, goal LDL below 160 05/03/2013 documented as of this encounter (statuses as of 08/14/2024) Resolved Problems Problem Noted Date Diagnosed Date Resolved Date COPD, mild 10/20/2021 02/18/2023 Overview: Per COPD GOLD Classification documented as of this encounter (statuses as of 08/14/2024) Immunizations Name Administration Dates Next Due COVID-19 mRNA, LNP-s, No Pre serve, 2-Dose Series (Moderna) 11/11/2023,03/25/2021,02/25/2021 COVID-19, MRNA-LNP, 23-24, P F, 50 MCG/0.5 mL, 12 YRS AND ABOVE, IM (MODERNA-Spikevax) 11/11/2023 COVID-19, mRNA, LNP-s, PF, B ooster, 100mcg/0.5mg (Moderna) 10/10/2021 Covid-19, Mrna, Lnp-s, Pf, B ivalent, 30 Mcg, IM, 12 yrs and above (Pfizer) 09/10/2022 Seasonal Influenza, PF, 6 M & above, IM , (FluLaval or Fluzone) 11/11/2023,09/10/2022,10/20/2021 Seasonal Influenza, Quadriva lent Hd, 65+ Yrs 11/11/2023 TDAP (age 10 and older)(Boostrix) 10/15/2022, Zoster Vaccine Recombinant (Shingrix) 09/16/2020 ,07/08/2020 09/09/2020 documented as of this encounter Social History Tobacco Use Types Packs/Day Years Used Date Smoking Tobacco: Former Cigarettes Q uit: 03/17/1976 Passive Smoke Exposure: Past Smokeless Tobacco: Former Chew Quit: 1999 Comments:Pt smokes Marijuana currently Alcohol Use Standard Drinks/Week Comments Yes 0 (1 standard drink = 0.6 oz pur e alcohol) rare PHQ-2 Answer Date Recorded PHQ Adult Total Score 0 01/28/2023 Hunger Vital Sign Answer Date Recorded Within the past 12 months, y ou worried that your food would run out before you got the money to buy more. Never true 01/29/20 23 Within the past 12 months, t he food you bought just didn't last and you didn't have money to get more. Never true 01/28/2023 Utilities Answer Date Recorded Do you have trouble paying y our heating, water, or electric bill? (Adult - for ages 18 years and over) Not on file 04/25/2024 Is your family able to pay t he heat, water, or electric bill? (Household - for ages 0-17 years) Not on file 04/25/2024 Does your family have access to good internet? (Household - for ages 0-17 years) Not on file 04/25/2024 Social Connections Answer Date Recorded How often do you feel lonely or isolated from those around you? (Adult - for ages 18 years and over) Not on file 04/25/2024 Sex and Gender Information Value Date Recorded Sex Assigned at Male 03/29/2019 5:34 PM EDT Gender Identity Male 03/29/2019 5:34 PM EDT Sexual Orientation Straight 01/28/2023 5: 54 PM EDT Job Start Date Occupation Industry Not on file Not on file Not on file documented as of this encounter Functional Status Functional Status Response Date of Assess ment Are you deaf or do you have serious difficulty h earing? No 03/31/2022 Are you blind or do you have serious difficulty seeing, even when wearing glasses? No 03/31/2022 Do you have serious difficul ty walking or climbing stairs? (5 years old or older) No 04/01/2022 Do you have difficulty dress ing or bathing? (5 years old or older) No 03/31/2022 Because of a physical, menta l, or emotional condition, do you have difficulty doing errands alone such as visiting a doctor s office or shopping? (15 years old or older) No 03/31/20 Cognitive Status Response Date of Assessm ent Because of a physical, menta l, or emotional condition, do you have serious difficulty concentrating, remembering, or making decisions? (5 years old or older) No 03/31/2022 documented as of this encounter Progress Notes * Mesfin Rodriguez MD - 08/14/2024 1:22 PM EDT Myles Irwin [id number] Myles Irwin is a 68 year old male who presents for f/u for right hip and right knee injury/pain to [facility]. I saw him originally for this on 07/03/2024 Telephone visit done today rather than in office visit. Myles Irwin is here unaccompanied Quality: reviewed and agree with Nursing Notes for HPI elements History: History on 07/03/2024 - Pt c/o R knee pain 01/15 today Pt would like xray of his R knee and R Hip today Denies pain in his right hip but would like to have it x-rayed. Feels pain in the medial right knee. At times it throbs and keeps him from sleeping. No known injury. 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 Since that visit: His hip continues to do well. His knee is also doing relatively well. He is taking 2 ibuprofen and 2 Tylenol 3 times per day. He does not think the steroid injection helped him more than 1 day ROS: ROS per HPI otherwise non-contributory Past Medical History: Diagnosis Date COPD (chronic obstructive pulmonary disease) (HCC) DDD (degenerative disc disease), lumbar GERD (gastroesophageal reflux disease) HLD (hyperlipidemia) HTN (hypertension) Lumbar radiculopathy Neuropathy OA (osteoarthritis) Family History Problem Relation Name Age of Onset Diabetes Mother Hypertension Mother No Known Problems Father No Known Problems Sister Beckie No Known Problems Sister Nandini No Known Problems Sister Ludy Kidney disease Sister Constanza No Known Problems Brother Jam Social History Socioeconomic History Marital status: Spouse name: Beckie Number of children: 3 Years of education: Not on file Highest education level: Not on file Occupational History 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 Sexual activity: Yes Partners: Female Other Topics Concern Not on file Social History Narrative Not on file Social Determinants of Health Financial Resource Strain: Not on file Food Insecurity: No Food Insecurity (01/28/2023) Hunger Vital Sign Worried About Running Out of Food in the Last Year: Never true Ran Out of Food in the Last Year: Never true Transportation Needs: Not on file Social Connections: Unknown (04/25/2024) Social Connections How often do you feel lonely or isolated from those around you? (Adult - for ages 18 years and over): Not on file Housing Stability: Not on file Radiology: 07/03/2024: three-view x-ray of the right hip including AP pelvis Pelvis: No displaced fracture. Intact sacroiliac joints and symphysis pubis. Frontal view of the left hip demonstrates partially visualized total hip arthroplasty. RT hip: No acute fracture or dislocation. Mild hypertrophic changes and preserved joint space. IMPRESSION IMPRESSION No acute fracture or dislocation of the right hip 07/03/2024: 4 view xr of the R knee IMPRESSION Osteoarthritis of the right knee, mild in the medial tibiofemoral compartment, with mild diffuse soft tissue swelling Assessment and Plan: 1) right knee pain Suspect secondary to DJD which is greatest in the moderate compartment and where he is most symptomatic Discussed treatment options for arthritis including: Physical therapy, OTC/prescription medications, topical anti-inflammatory, steroid injections, hyaluronic acid injections (one shot and three shot), and PRP injections Intra-articular steroid injection performed 07/03/2024. Discussed possibility of using ultrasound guidance versus palpation/landmark. He elected patient's/landmark. For lack of substantial improvementwith injection could consider use of ultrasound in the future. He does not think the steroid injection helped him more than 1 day, however, his knee is also doingrelatively well. He is taking 2 ibuprofen and 2 Tylenol 3 times per day. Discuss next steps which would be potentially try viscosupplementation. Discussed 1 and 3 shot options. For now he plans to see how his knee does with just the oral medications alone he will follow up p.r.n. Patient's right hip is not symptomatic. However, he requested right hip radiographs as on his left side he had some left knee pain that was determined to be somewhat secondary to hip pain. Note: Patient has history of AVN of the left hip and had total hip arthroplasty by Dr. Rosales Winters(orthopaedic surgery - [facility]) in March of 2022. Previous medication recommendations: Try this medicine first before adding additional medicines: topical Voltaren gel (Diclofenac SodiumTopical Gel) which is over the counter up to 4 times per day Additional options: Tylenol (Acetaminophen) Regular Strength 325 mg (1-2 tablets up to 4 times per day)and/or Ibuprofen 200mg (1-3 tab up to 4 times per day) with food (No other over the counter NSAID medications) I recommend taking them at the same time but they can also be alternated. Use the lowest amount of medication as infrequently as possible to control your pain at a tolerablelevel Do not take Tylenol if drinking more than 3 alcohol drinks daily With your diagnosis of hypertension I assume your PCP will want she had a limit ibuprofen as much as possible. After connecting to the patient via telephone, the patient was identified by name and date of . Patient was then informed that this was a telephone call only visit. The patient agreed to participate. Visit Disposition: Routine follow-up Total call duration was 5 minutes. Mesfin Rodriguez MD Primary Care Sports Medicine Orthopaedics [facility] [address] [place] [address] documented in this encounter Plan of Treatment Upcoming Encounters Date Type Department Care Team (Latest Contact Info) Description 08/16/2024 8:30 AM EDT Hospital Encounter [facility]O [facility], [facility] [address] [place] [id number] Sonya Tom MD [address] [employer] [place] [address] 08/16/2024 8:30 AM EDT - 08/16/2024 9:00 AM EDT Surgery ENDO [facility], [facility]oscopy [facility] [address] [place] [phone] Sonya Tom MD [address] [place] [address] COLONOSCOPY FLEXIBLE PROXIMAL DIAGNOSTIC 05/08/2025 8:00 AM EDT Office Visit Family Practice [facility] [address] [place] [address] Kaitlin Frye CRNP [address] [place] [address] Scheduled Procedures Name Priority Associated Diagnoses Date/Ti me COLONOSCOPY FLEXIBLE PROXIMAL DIAGNOSTIC Special screening for malignant neoplasms, colon 08/16/2024 8:30 AM EDT Health Maintenance Due Date Last Done Comments Pneumococcal Vaccine: 65+ Years (1 of 2 - PCV) 1963 Alpha-1 Antitrypsin 1975 Cologuard 2002 Fecal Occult Blood Test 2002 Sigmoidoscopy 2002 AAA Screening 2022 Colonoscopy 05/19/2023 05/19/2013, 05/19/2013 Colorectal Cancer Screening 05/19/2023 Adult Wellness Visit 2023 Depression Screening 01/29/2024 01/28/2023 COVID-19 Vaccine ( season) 2024 11/11/2023, 11/11/2023, 09/10/2022, Additional history exists Influenza Vaccine (FLU shot) (#1) 2024 11/11/2023, 11/11/2023, 09/10/2022, Additional history exists HbA1c 12/20/2024 12/20/2023, 03/11/2022 GFR 01/16/2025 01/17/2024, 12/09, 04/01/2022, Additional history exists O2 ASSESSMENT COMPLETED IN PAST YEAR FOR COPD 01/16/2025 01/17/2024 Albumin/Creatinine Ratio 12/20/2026 12/20/2023, 03/0 07/2020 Lipid Panel 12/20/2028 12/20/2023, 05/08, 12/15/2019, Additional history exists DTap/Tdap Vaccines (3 - Td or Tdap) 10/15/2032 10/15/2022, 05/03/2013, 03/17/2004 Zoster Vaccines Completed 09/16/2020, 07/08/2020 HPV (Gardasil) Vaccine Aged Out No lo nger eligible based on patient's age to complete this topic Hepatitis B Vaccine Aged Out No longe r eligible based on patient's age to complete this topic MENINGOCOCCAL (MENACTRA/MENVEO) Aged Out No longer eligible based on patient's age to complete this topic documented as of this encounter Medical Devices Implanted Type Area Counselor Supervisor Device Identifier Shelf Expiration Date Model / Serial / Lot Screw Bone 6.5x25mm - [id number] Implanted:Qty: 1 on 03/31/2022 by Rosales Winters MD at OR [facility] Screw Left: Hip JOSE : ORTHOPAEDICS 03/02/2027 [id number] / / WTTA 6.5mm Low Profile Hex Screw 6 - [id number] Implanted:Qty: 1 on 03/31/2022 by Rosales Winters MD at OR [facility] Screw Left: Hip JOSE : ORTHOPAEDICS 03/05/2027 [id number] / / [id number] Acetabular Clusterhole Shell56 - [id number] Implanted:Qty: 1 on 03/31/2022 by Rosales Winters MD at OR [facility] Left: Hip JOSE : ORTHOPAEDICS 01/15/2027 702-04-56F / / [id number] Trident Acetabular X3 10 36 F - [id number] Implanted:Qty: 1 on 03/31/2022 by Rosales Winters MD at OR [facility] Left: Hip JOSE : ORTHOPAEDICS 03/31/2026 723-10-36F / / [id number] Secur-Fit Advanced 132 Degree Neck Angle V40 Hip Stem Implanted:Qty: 1 on 03/31/2022 by Rosales Winters MD at OR [facility] Left: Hip JOSE : ORTHOPAEDICS 09/22/2025 [id number] / / [id number] Description:Size 9, 34mm Nec k Length, 142mm Stem Length, V40 Taper Hip Hd Valeriano Ortega 36/+25 - [id number] Implanted:Qty: 1 on 03/31/2022 by Rosales Winters MD at OR [facility] Left: Hip JOSE : ORTHOPAEDICS 05/19/2026 6570-0-536 / / [id number] documented as of this encounter Visit Diagnoses Diagnosis Primary osteoarthritis of right knee- Primary Primary localized osteoarthrosis, lower leg Special screening for malignant neoplasms, colon documented in this encounter Advance Directives * Full Code (Latest Code Status on File) Date Activated Date Inactivated Comments 03/31/2022 11:03 AM 04/01/2022 2:51 PM This order reflects the patients wishes and were consensually agreed upon. Care Teams Maintenance Team Member Relationship Specialty Start Date End Date Kaitlin Frye CRNP [address] [place] [address] PCP - General Nurse Practitioner 12/27/23 documented as of this encounter
--- OUTSIDE RECORDS SUMMARY | 2024-08-18 13:24 | External Medical Summary | Summary of Care ---
Author Name Unknown Organization [facility] Address [address] [facility] [place] [address] Phone [phone] Care Team Providers Care Apprentice Architect Name Role Phone Kaitlin Frye ANGELES Primary Care Provider +1- [phone] Encounter Details Date Type Department Care Team (Late st Contact Info) Description 07/18/2024 Telephone Gastroenterology, [facility] [address] [facility] [place] [address] Sonya Tom MD [address] [place] [address] [place] [address] Allergies No known active allergiesdocumented as of this encounter (statuses as of 07/18/2024) Medications Medication Sig Dispensed Refills Start Date End Date Status Fluticasone Propionate 50 MCG/ACT Nasal Suspension (Flonase)Indication s:Chronic rhinitis Administer 2 Sprays into each nostril in the morning. 16 g 12/20/2023 Active Carvedilol 25 MG Oral Tablet (Coreg)Indications: HTN, goal below 130/80 Take 1 Tablet by mouth in the morning and 1 Tablet before bedtime. with food. 60 Tablet 11 12/20/2023 Active hydroCHLOROthiazide 25 MG Oral Tablet (Hydrodiuril)Indica tions:HTN, goal below 130/80 Take 1 Tablet by mouth in the morning. 90 Tablet 3 01/06/2024 Active Omeprazole 40 MG Oral Capsule Delayed Release (PriLOSEC)Indicatio ns:Gastroesophageal reflux disease without esophagitis Take 1 Capsule by mouth in the morning. 90 Capsule 3 02/16/2024 Active Fosinopril Sodium 40 MG Oral Tablet (Monopril)Indicatio ns:HTN, goal below 130/80 Take 1 Tablet by mouth in the morning. 90 Tablet 2 03/29/2024 Active Advair HFA 115-21 MCG/ACT Inhalation Aerosol Inhale 2 Puffs by mouth in the morning and 2 Puffs before bedtime. 12 g 2 05/15/2024 Active Atorvastatin Calcium 40 MG Oral Tablet (Lipitor)Indication s:Dyslipidemia TAKE 1 TABLET BY MOUTH EVERY DAY IN THE MORNING 90 Tablet 06/19/2024 Active documented as of this encounter (statuses as of 07/18/2024) Active Problems Problem Noted Date Diagnosed Date [...] as of this encounter (statuses as of 07/18/2024) Resolved Problems Problem Noted Date Diagnosed Date Resolved Date COPD, mild 10/20/2021 02/18/2023 Overview: Per COPD GOLD Classification documented as of this encounter (statuses as of 07/18/2024) Immunizations Name Administration Dates Next Due COVID-19 [...] No 03/31/2022 documented as of this encounter Plan of Treatment Upcoming Encounters Date Type Department Care Team (Latest Contact Info) Description 08/14/2024 1:15 PM EDT Telemedicine Orthopaedics [facility] [address] [place] [address] Mesfin Rodriguez MD [address] [place] [address] 08/16/2024 8:30 AM EDT Hospital Encounter ENDO [facility], Endoscopy Room [facility] [address] [place] [phone] Sonya Tom MD [address] [place] [address] 08/16/2024 8:30 AM EDT - 08/16/2024 9:00 AM EDT Surgery ENDO [facility], Endoscopy Room [facility] [address] [place] [phone] Sonya Tom MD [address] [place] [address] COLONOSCOPY FLEXIBLE PROXIMAL DIAGNOSTIC Scheduled Procedures Name Priority Associated Diagnoses Date/Ti [...] this encounter Medical Devices Implanted Type Area Cloth Finishing Range Operator Device Identifier Shelf Expiration Date Model / Serial / Lot Screw Bone 6.5x25mm - [id number] Implanted:Qty: 1 on 03/31/2022 by Rosales Winters MD at OR [facility] Screw Left: Hip JOSE : ORTHOPAEDICS 03/02/2027 [id number] / / WTTA 6.5mm Low Profile Hex Screw 6 - [id number] Implanted:Qty: 1 on 03/31/2022 by Rosales Winters MD at OR [facility] Screw Left: Hip JOSE : ORTHOPAEDICS 03/05/2027 [id number] / / [id number] Acetabular Clusterhole Shell56 - [id number] Implanted:Qty: 1 on 03/31/2022 by Rosales Winters MD at OR [facility] Left: Hip JOSE : ORTHOPAEDICS 01/15/2027 702-04-56F / / [id number] Trident Acetabular X3 10 36 F - [id number] Implanted:Qty: 1 on 03/31/2022 by Rosales Winters MD at OR [facility] Left: Hip JOSE : ORTHOPAEDICS 03/31/2026 723-10-36F / / [id number] Secur-Fit Advanced 132 Degree Neck Angle V40 Hip Stem Implanted:Qty: 1 on 03/31/2022 by Rosales Winters MD at OR [facility] Left: Hip JOSE : ORTHOPAEDICS 09/22/2025 [id number] / / [id number] Description:Size 9, 34mm Nec k Length, 142mm Stem Length, V40 Taper Hip Hd Nk Alumina D 36/+25 - [id number] Implanted:Qty: 1 on 03/31/2022 by Rosales Winters MD at OR [facility] Left: Hip JOSE : ORTHOPAEDICS 05/19/2026 6570-0-536 / / [id number] documented as of this encounter Advance Directives * Full Code (Latest Code Status on File) Date Activated Date Inactivated Comments 03/31/2022 11:03 AM 04/01/2022 2:51 PM This order reflects the patients wishes and were consensually agreed upon. Care Teams Apprentice Architect Relationship Specialty Start Date End Date Kaitlin Frye CRNP [address] [place] [address] PCP - General Nurse Practitioner 12/27/23 documented as of this encounter
--- OUTSIDE RECORDS SUMMARY | 2024-08-18 13:24 | External Medical Summary | Summary of Care ---
Author Name Unknown Organization [facility] Address [address] [place] [address] Phone [phone] Care Team Providers Care Irs Agent Name Role Phone Kaitlin Frye ANGELES Primary Care Provider +1- [phone] Reason for Visit * Reason Comments Pain Encounter Details Date Type Department Care Team (Latest Contact Info) Description 08/14/2024 1:15 PM EDT Telemedicine Orthopaedics [facility] [address] [place] [address] Mesfin Rodriguez MD [address] [place] [address] Primary osteoarthritis of right knee* Allergies No known active allergiesdocumented as of this encounter (statuses as of 08/15/2024) Medications Medication Sig Dispensed Refills Start Date [...] as of this encounter (statuses as of 08/15/2024) Active Problems Problem Noted Date Diagnosed Date [...] as of this encounter (statuses as of 08/15/2024) Resolved Problems Problem Noted Date Diagnosed Date Resolved Date COPD, mild 10/20/2021 02/18/2023 Overview: Per COPD GOLD Classification documented as of this encounter (statuses as of 08/15/2024) Immunizations Name Administration Dates Next Due COVID-19 [...] Influenza, Quadriva lent Hd, 65+ Yrs 11/11/2023 TD - Tetanus/Diptheria (ADULT) 03/17/2004 TDAP (age 10 and older)(Boostrix) 10/15/2022, Zoster [...] - 08/14/2024 1:22 PM EDT Myles Irwin [id number] Myles Irwin is a 68 year old male who presents for f/u for right hip and right knee injury/pain to [facility]. I saw him originally for this [...] knee is also doing relatively well. 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 Rosales Winters(orthopaedic surgery - [facility]) in March of 2022. Previous medication recommendations: [...] a limit ibuprofen as much as possible. As noted above in history as of today's visit 08/15/2024: He is taking 2 ibuprofen and 2 Tylenol 1 time a day and use cream and lotions also at times After connecting to the patient via telephone, the patient was identified by name and date of . Patient was then informed that this was a telephone call only visit. The patient agreed to participate. Visit Disposition: Routine follow-up Total call duration was 5 minutes. Mesfin Rodriguez MD Primary Care Sports Medicine Orthopaedics [facility] [address] [facility] [place] [address] documented in this encounter Plan of Treatment Upcoming Encounters Date Type Department Care Team (Latest Contact Info) Description 08/16/2024 8:30 AM EDT Hospital Encounter ENDO OSS[facility], Endoscopy Room [facility] [address] [place] [phone] Sonya Tom MD [address] [place] [address] 08/16/2024 8:30 AM EDT - 08/16/2024 9:00 AM EDT Surgery ENDO [facility], Endoscopy Room [facility] [address] [address] [place] [phone] Sonya Tom MD [address] [place] [address] COLONOSCOPY FLEXIBLE PROXIMAL DIAGNOSTIC 05/08/2025 8:00 AM EDT Office Visit Family Practice [facility] [address] [place] [address] Kaitlin Frye CRNP [address] [place] [address] Scheduled Procedures Name Priority Associated Diagnoses Date/Ti [...] this encounter Medical Devices Implanted Type Area Chocolate Temperer Device Identifier Shelf Expiration Date Model / Serial / Lot Screw Bone 6.5x25mm - [id number] Implanted:Qty: 1 on 03/31/2022 by Rosales Winters MD at OR [facility] Screw Left: Hip JOSE : ORTHOPAEDICS 03/02/2027 1898-4466 / / WTTA 6.5mm Low Profile Hex Screw 6 - [id number] Implanted:Qty: 1 on 03/31/2022 by Rosales Winters MD at OR [facility] Screw Left: Hip JOSE : ORTHOPAEDICS 03/05/2027 7750-4664 / / [id number] Acetabular Clusterhole Shell56 - [id number] Implanted:Qty: 1 on 03/31/2022 by Rosales Winters MD at OR [facility] Left: Hip JOSE : ORTHOPAEDICS 01/15/2027 702-04-56F / / [id number] Trident Acetabular X3 10 36 F - [id number] Implanted:Qty: 1 on 03/31/2022 by Rosales Winters MD at OR [facility] Left: Hip JOSE : ORTHOPAEDICS 03/31/2026 723-10-36F / / [id number] Secur-Fit Advanced 132 Degree Neck Angle V40 Hip Stem Implanted:Qty: 1 on 03/31/2022 by Rosales Winters MD at OR [facility] Left: Hip JOSE : ORTHOPAEDICS 09/22/2025 [id number] / / [id number] Description:Size 9, 34mm Nec k Length, 142mm Stem Length, V40 Taper Hip Hd Valeriano Ortega 36/+25 - [id number] Implanted:Qty: 1 on 03/31/2022 by Rosales Winters MD at OR [facility] Left: Hip JOSE : ORTHOPAEDICS 05/19/2026 6570-0-536 / / [id number] documented as of this encounter Visit Diagnoses Diagnosis Primary osteoarthritis of right knee- Primary Primary localized osteoarthrosis, lower leg Special screening for malignant neoplasms, colon documented in this encounter Advance Directives * Full Code (Latest Code Status on File) Date Activated Date Inactivated Comments 03/31/2022 11:03 AM 04/01/2022 2:51 PM This order reflects the patients wishes and were consensually agreed upon. Care Teams Irs Agent Relationship Specialty Start Date End Date Kaitlin Frye CRNP [address] [place] [address] PCP - General Nurse Practitioner 12/27/23 documented as of this encounter
--- OUTSIDE RECORDS SUMMARY | 2024-08-18 13:24 | External Medical Summary | Summary of Care ---
Author Name Unknown Organization [facility] Address [address] [place] [facility] [place] [facility] [place] [address] Phone [phone] Care Team Providers Care Sand System Operator Name Role Phone Kaitlin Frye ANGELES Primary Care Provider +1- [phone] Reason for Visit * Reason Comments Outpatient Testing Encounter Details Date Type Department Care Team (Late st Contact Info) Description 07/05/2024 12:30 PM EDT Laboratory Laboratory, [facility] [address] [facility] [place] [phone] [facility]yl[facility]Salud payne [facility] [address] [facility] [place] [address] Dyslipidemia; Encounter for long-term (current) use of medications; HTN, goal below 130/80 Allergies No known active allergiesdocumented as of this encounter (statuses as of 07/05/2024) Medications Medication Sig Dispensed Refills Start Date End Date Status Fluticasone Propionate 50 MCG/ACT Nasal Suspension (Flonase)Indication s:Chronic rhinitis Administer 2 Sprays into each nostril in the morning. 16 g 11 12/20/2023 Active Carvedilol 25 MG Oral Tablet [...] as of this encounter (statuses as of 07/05/2024) Active Problems Problem Noted Date Diagnosed Date [...] as of this encounter (statuses as of 07/05/2024) Resolved Problems Problem Noted Date Diagnosed Date Resolved Date COPD, mild 10/20/2021 02/18/2023 Overview: Per COPD GOLD Classification documented as of this encounter (statuses as of 07/05/2024) Immunizations Name Administration Dates Next Due COVID-19 [...] Department Care Team (Latest Contact Info) Description 07/21/2024 1:00 PM EDT Office Visit Family Practice [facility] [address] [place] [address] Kaitlin Frye CRNP [address] [place] [address] 08/14/2024 1:15 PM EDT Telemedicine Orthopaedics [facility] [address] [place] [address] Mesfin Rodriguez MD [address] [place] [address] 08/16/2024 8:30 AM EDT Hospital Encounter ENDO O[facility], Endoscopy Room [facility] [address] [place] [phone] Sonya Tom MD [address] [place] [address] 08/16/2024 8:30 AM EDT - 08/16/2024 9:00 AM EDT Surgery ENDO O[facility], Endoscopy Room [facility] [address] [place] [phone] Sonya Tom MD [address] [place] [id number] COLONOSCOPY FLEXIBLE PROXIMAL DIAGNOSTIC Scheduled Procedures Name [...] COPD 01/16/2025 01/17/2024 Albumin/Creatinine Ratio 12/20/2026 12/20/2023, 0307/2020 Lipid Panel 12/20/2028 12/20/2023, 05/08, 12/15/2019, Additional [...] this encounter Medical Devices Implanted Type Area Floor Worker Well Service Device Identifier Shelf Expiration Date Model / Serial / Lot Screw Bone 6.5x25mm - [id number] Implanted:Qty: 1 on 03/31/2022 by Rosales Winters MD at OR [facility] Screw Left: Hip JOSE : ORTHOPAEDICS 03/02/2027 0894-2567 / / WTTA 6.5mm Low Profile Hex Screw 6 - [id number] Implanted:Qty: 1 on 03/31/2022 by Rosales Winters MD at OR [facility] Screw Left: Hip JOSE : ORTHOPAEDICS 03/05/2027 8941-0807 / / [id number] Acetabular Clusterhole Shell56 - [id number] Implanted:Qty: 1 on 03/31/2022 by Rosales Winters MD at OR [facility] Left: Hip JOSE : ORTHOPAEDICS 01/15/2027 702-04-56F / / [id number] Trident Acetabular X3 10 36 F - [id number] Implanted:Qty: 1 on 03/31/2022 by Rosales Winters MD at OR [facility] Left: Hip JOSE : ORTHOPAEDICS 03/31/2026 723-10-36F / / [id number] Secur-Fit Advanced 132 Degree Neck Angle V40 Hip Stem Implanted:Qty: 1 on 03/31/2022 by Rosales Winters MD at OR [facility] Left: Hip JOSE : ORTHOPAEDICS 09/22/2025 1601-18778 / / [id number] Description:Size 9, 34mm Nec k Length, 142mm Stem Length, V40 Taper Hip Hd Nk Alumina D 36/+25 - [id number] Implanted:Qty: 1 on 03/31/2022 by Rosales Winters MD at OR [facility] Left: Hip JOSE : ORTHOPAEDICS 05/19/2026 6570-0-536 / / [id number] documented as of this encounter Visit Diagnoses Diagnosis Dyslipidemia Other and unspecified hyperlipidemia Encounter for long-term (current) use of medications Encounter for long-term (current) use of other medications HTN, goal below 130/80 Unspecified essential hypertension Special screening for malignant neoplasms, colon documented in this encounter Advance Directives * Full Code (Latest Code Status on File) Date Activated Date Inactivated Comments 03/31/2022 11:03 AM 04/01/2022 2:51 PM This order reflects the patients wishes and were consensually agreed upon. Care Teams Sand System Operator Relationship Specialty Start Date End Date Kaitlin Frye CRNP [address] [place] [address] PCP - General Nurse Practitioner 12/27/23 documented as of this encounter
--- OUTSIDE RECORDS SUMMARY | 2024-08-18 13:24 | External Medical Summary | Summary of Care ---
Author Name Unknown Organization [facility] Address [address] [place] [facility] [place] [address] Phone [phone] Care Team Providers Care Cosmetic Assembler Name Role Phone Kaitlin Frye ANGELES Primary Care Provider +1- [phone] Reason for Visit * Reason Comments Outpatient Testing Encounter Details Date Type Department Care Team (Late st Contact Info) Description 07/05/2024 12:30 PM EDT Laboratory Laboratory, [facility] [address] [facility] [place] [phone] Wylie[place]ud payne [facility] [address] [facility] [place] [address] Dyslipidemia; Encounter for long-term (current) use of [...] 1:00 PM EDT Office Visit Family Practice [facility] [address] [place] [address] Kaitlin Frye CRNP [address] [address] 08/14/2024 1:15 PM EDT Telemedicine Orthopaedics [facility] [address] [facility] [place] [address] Mesfin Rodriguez MD [address] [place] [address] 08/16/2024 8:30 AM EDT Hospital Encounter ENDO O[facility], Endoscopy Room [facility] [address] [place] [phone] Sonya Tom MD [address] [place] [address] 08/16/2024 8:30 AM EDT - 08/16/2024 9:00 AM EDT Surgery ENDO O[facility], Endoscopy Room [facility] [address] [place] [phone] Sonya Tom MD [address] [place] [id number] COLONOSCOPY FLEXIBLE PROXIMAL DIAGNOSTIC Scheduled Procedures Name [...] this encounter Medical Devices Implanted Type Area Preflight Mechanic Device Identifier Shelf Expiration Date Model / Serial / Lot Screw Bone 6.5x25mm - [id number] Implanted:Qty: 1 on 03/31/2022 by Rosales Winters MD at OR [facility] Screw Left: Hip JOSE : ORTHOPAEDICS 03/02/2027 1421-7931 / / WTTA 6.5mm Low Profile Hex Screw 6 - [id number] Implanted:Qty: 1 on 03/31/2022 by Rosales Winters MD at OR [facility] Screw Left: Hip JOSE : ORTHOPAEDICS 03/05/2027 0256-6843 / / [id number] Acetabular Clusterhole Shell56 - [id number] Implanted:Qty: 1 on 03/31/2022 by Rosales Winters MD at OR [facility] Left: Hip JOSE : ORTHOPAEDICS 01/15/2027 702-04-56F / / [id number] Trident Acetabular X3 10 36 F - [id number] Implanted:Qty: 1 on 03/31/2022 by Rosales Winters MD at OR [facility] Left: Hip JOSE : ORTHOPAEDICS 03/31/2026 723-10-36F / / [id number] Secur-Fit Advanced 132 Degree Neck Angle V40 Hip Stem Implanted:Qty: 1 on 03/31/2022 by Rosales Winters MD at OR [facility] Left: Hip JOSE : ORTHOPAEDICS 09/22/2025 1601-28884 / / [id number] Description:Size 9, 34mm Nec k Length, 142mm Stem Length, V40 Taper Hip Hd Nk Alumina D 36/+25 - [id number] Implanted:Qty: 1 on 03/31/2022 by Rosales Winters MD at OR [facility] Left: Hip JOSE : ORTHOPAEDICS 05/19/2026 6570-0-536 / / [id number] documented as of this encounter Visit Diagnoses [...] and were consensually agreed upon. Care Teams Cosmetic Assembler Relationship Specialty Start Date End Date Kaitlin Frye CRNP [address] [place] [address] PCP - General Nurse Practitioner 12/27/23 documented as of this encounter
--- OUTSIDE RECORDS SUMMARY | 2024-08-18 13:24 | External Medical Summary | Summary of Care ---
Author Name Unknown Organization [facility] Address [address] [place] [facility] [place] [address] Phone [phone] Care Team Providers Care Quality Control Engineer Name Role Phone Kaitlin Frye ANGELES Primary Care Provider +1- [phone] Reason for Visit * Reason Comments Outpatient Testing Encounter Details Date Type Department Care Team (Late st Contact Info) Description 07/05/2024 12:30 PM EDT Laboratory Laboratory, [facility] [address] [facility] [place] [phone] [facility] [address] [facility] [place] [address] Dyslipidemia; Encounter for long-term (current) use of [...] 1:00 PM EDT Office Visit Family Practice [facility] [address] [place] [address] Kaitlin Frye CRNP [address] [place] [address] 08/14/2024 1:15 PM EDT Telemedicine Orthopaedics [facility] [address] [place] [address] Mesfin Rodriguez MD [address] [place] [address] 08/16/2024 8:30 AM EDT Hospital Encounter ENDO [facility], Endoscopy Room [facility] [address] [place] [phone] Sonya Tom MD [address] [place] [address] 08/16/2024 8:30 AM EDT - 08/16/2024 9:00 AM EDT Surgery ENDO [facility], Endoscopy Room [facility] [address] [place] [phone] Sonya Tom MD [address] [place] [id number] COLONOSCOPY FLEXIBLE PROXIMAL DIAGNOSTIC Pending Results Name Type Priority Associated Diagnoses Date /Time COMPREHENSIVE METABOLIC PANEL Lab Routine HTN, goal below 130/80 Encounter for long-term (current) use of medications 07/05/2024 12:20 PM EDT Scheduled Procedures Name Priority Associated Diagnoses Date/Ti ak COLONOSCOPY FLEXIBLE PROXIMAL DIAGNOSTIC Special screening for [...] COPD 01/16/2025 01/17/2024 Albumin/Creatinine Ratio 12/20/2026 12/20/2023, 03/07/2020 Lipid Panel 12/20/2028 12/20/2023, 05/08, 12/15/2019, Additional [...] this encounter Medical Devices Implanted Type Area Lab Analyst Device Identifier Shelf Expiration Date Model / Serial / Lot Screw Bone 6.5x25mm - [id number] Implanted:Qty: 1 on 03/31/2022 by Rosales Winters MD at OR [facility] Screw Left: Hip JOSE : ORTHOPAEDICS 03/02/2027 1368-2665 / / WTTA 6.5mm Low Profile Hex Screw 6 - [id number] Implanted:Qty: 1 on 03/31/2022 by Rosales Winters MD at OR [facility] Screw Left: Hip JOSE : ORTHOPAEDICS 03/05/2027 6381-2744 / / [id number] Acetabular Clusterhole Shell56 - [id number] Implanted:Qty: 1 on 03/31/2022 by Rosales Winters MD at OR [facility] Left: Hip JOSE : ORTHOPAEDICS 01/15/2027 702-04-56F / / [id number] Trident Acetabular X3 10 36 F - [id number] Implanted:Qty: 1 on 03/31/2022 by Rosales Winters MD at OR [facility] Left: Hip JOSE : ORTHOPAEDICS 03/31/2026 723-10-36F / / [id number] Secur-Fit Advanced 132 Degree Neck Angle V40 Hip Stem Implanted:Qty: 1 on 03/31/2022 by Rosales Winters MD at OR [facility] Left: Hip JOSE : ORTHOPAEDICS 09/22/2025 [id number] / / [id number] Description:Size 9, 34mm Nec k Length, 142mm Stem Length, V40 Taper Hip Hd Nk Alumina D 36/+25 - [id number] Implanted:Qty: 1 on 03/31/2022 by Rosales Winters MD at OR [facility] Left: Hip JOSE : ORTHOPAEDICS 05/19/2026 6570-0-536 / / [id number] documented as of this encounter Visit Diagnoses [...] and were consensually agreed upon. Care Teams Quality Control Engineer Relationship Specialty Start Date End Date Kaitlin Frye CRNP [address] [place] [address] PCP - General Nurse Practitioner 12/27/23 documented as of this encounter
--- OUTSIDE RECORDS SUMMARY | 2024-08-18 13:24 | External Medical Summary | Summary of Care ---
Author Name Unknown Organization [facility] Address [address] [facility] [place] [address] Phone [phone] Care Team Providers Care Business Services Associate Name Role Phone Kaitlin Frye ANGELES Primary Care Provider +1- [phone] Reason for Visit * Reason Comments Outpatient Testing Encounter Details Date Type Department Care Team (Late st Contact Info) Description 07/05/2024 12:30 PM EDT Laboratory Laboratory, [facility] [address] [facility] [place] [phone] WylieSalud payne [facility] [address] [facility] [place] [address] Dyslipidemia; Encounter for long-term (current) use of [...] 1:00 PM EDT Office Visit Family Practice [facility] [address] [place] [address] Kaitlin Frye CRNP [address] [place] [address] 08/14/2024 1:15 PM EDT Telemedicine Orthopaedics [facility] [address] [place] [address] Mesfin Rodriguez MD [address] [place] [address] 08/16/2024 8:30 AM EDT Hospital Encounter ENDO [facility], Endoscopy Room [facility] [address] [place] [phone] Sonya Tom MD [address] [place] [address] 08/16/2024 8:30 AM EDT - 08/16/2024 9:00 AM EDT Surgery ENDO [facility], Endoscopy Room [facility] [address] [place] [phone] Sonya Tom MD [address] [place] [id number] COLONOSCOPY FLEXIBLE PROXIMAL DIAGNOSTIC Pending Results Name Type Priority Associated Diagnoses Date /Time LIPID PANEL WITH DIRECT LDL IF TG IS HIGH Lab Routine Dyslipidemia Encounter for long-term (current) use of medications 07/05/2024 12:20 PM EDT COMPREHENSIVE METABOLIC PANEL Lab Routine HTN, goal below 130/80 Encounter for long-term (current) use of medications 07/05/2024 12:20 PM EDT Scheduled Procedures Name Priority Associated Diagnoses Date/Ti or COLONOSCOPY FLEXIBLE PROXIMAL DIAGNOSTIC Special screening for [...] COPD 01/16/2025 01/17/2024 Albumin/Creatinine Ratio 12/20/2026 12/20/2023, 07/2020 Lipid Panel 12/20/2028 12/20/2023, 05/08, 12/15/2019, [...] this encounter Medical Devices Implanted Type Area Trade Analyst Device Identifier Shelf Expiration Date Model / Serial / Lot Screw Bone 6.5x25mm - [id number] Implanted:Qty: 1 on 03/31/2022 by Rosales Winters MD at OR [facility] Screw Left: Hip JOSE : ORTHOPAEDICS 03/02/2027 7005-9848 / / WTTA 6.5mm Low Profile Hex Screw 6 - [id number] Implanted:Qty: 1 on 03/31/2022 by Rosales Winters MD at OR [facility] Screw Left: Hip JOSE : ORTHOPAEDICS 03/05/2027 0740-3221 / / [id number] Acetabular Clusterhole Shell56 - [id number] Implanted:Qty: 1 on 03/31/2022 by Rosales Winters MD at OR [facility] Left: Hip JOSE : ORTHOPAEDICS 01/15/2027 702-04-56F / / [id number] Trident Acetabular X3 10 36 F - [id number] Implanted:Qty: 1 on 03/31/2022 by Rosales Winters MD at OR [facility] Left: Hip JOSE : ORTHOPAEDICS 03/31/2026 723-10-36F / / [id number] Secur-Fit Advanced 132 Degree Neck Angle V40 Hip Stem Implanted:Qty: 1 on 03/31/2022 by Rosales Winters MD at OR [facility] Left: Hip JOSE : ORTHOPAEDICS 09/22/2025 1601-10589 / / [id number] Description:Size 9, 34mm Nec k Length, 142mm Stem Length, V40 Taper Hip Hd Nk Alumina D 36/+25 - [id number] Implanted:Qty: 1 on 03/31/2022 by Rosales Winters MD at OR [facility] Left: Hip JOSE : ORTHOPAEDICS 05/19/2026 6570-0-536 / / [id number] documented as of this encounter Visit Diagnoses [...] and were consensually agreed upon. Care Teams Business Services Associate Relationship Specialty Start Date End Date Kaitlin Frye CRNP [address] [place] [address] PCP - General Nurse Practitioner 12/27/23 documented as of this encounter
--- OUTSIDE RECORDS SUMMARY | 2024-08-18 13:24 | External Medical Summary | Summary of Care ---
Author Name Unknown Organization [facility] Address [address] [facility] [place] [address] Phone [phone] Care Team Providers Care Medical Affairs Director Name Role Phone Kaitlin Frye ANGELES Primary Care Provider +1- [phone] Reason for Visit * Auth/Cert Specialty Diagnoses / Procedures Referred By Bibi maki Referred To Contact Diagnoses Special screening for malignant neoplasms, colon Special screening for malignant neoplasms, colon [Z12.11] Procedures COLONOSCOPY, DIAGNOSTIC (RECTUM) COLONOSCOPY FLEXIBLE PROXIMAL DIAGNOSTIC Sonya Tom MD [address] [place] [address] [facility] [address] [place] [address] Referral ID Status Reason Start Date Expiration Date Visits Re quested Visits Authorized [id number] Encounter Details Date Type Department Care Team (Latest Contact Info) Description 08/16/2024 7:43 AM EDT - 08/16/2024 9:28 AM EDT Hospital Encounter [facility], End[facility] [address] [place] [address] Sonya Tom MD [address] [place] [address] Colonoscopy Discharge Disposition: Home - Self Care Allergies No known active allergiesdocumented as of this encounter (statuses as of 08/16/2024) Medications Medication Sig Dispensed Refills Start Date [...] as of this encounter (statuses as of 08/16/2024) Active Problems Problem Noted Date Diagnosed Date [...] as of this encounter (statuses as of 08/16/2024) Resolved Problems Problem Noted Date Diagnosed Date Resolved Date COPD, mild 10/20/2021 02/18/2023 Overview: Per COPD GOLD Classification documented as of this encounter (statuses as of 08/16/2024) Immunizations Name Administration Dates Next Due COVID-19 [...] money to buy more. Never true 01/29/20 Within the past 12 months, t he [...] on file documented as of this encounter Last Filed Vital Signs Vital Sign Reading Time Taken Comments Blood Pressure 126/83 08/16/2024 9:11 AM EDT Pulse 67 08/16/2024 9:11 AM EDT Temperature 36 C (96.8 F) 08/16/2024 9:11 AM EDT Respiratory Rate 16 08/16/2024 9:11 AM EDT Oxygen Saturation 100% 08/16/2024 9:11 AM EDT Inhaled Oxygen Concentration - - Weight 105.7 kg (233 lb) 08/16/2024 8:00 AM EDT Height 177.8 cm (5' 10") 08/16/2024 8:00 AM EDT Body Mass Index 33.43 08/16/2024 8:00 AM EDT documented in this encounter Functional Status Functional Status Response [...] No 03/31/2022 documented as of this encounter H&P Notes * Sonya Tom MD - 08/16/2024 8:30 AM EDT Endoscopy Pre-Procedure Assessment Name: Myles Irwin Date: 08/16/2024 Time: 8:30 AM Procedure(s): Colonoscopy; with Indication(s) of average risk screening Endoscopy Pre-Procedure Assessment: Prior to the procedure, the patient is identified. The patient's history, medications and allergieshave been reviewed. The patient is competent. The risks and benefits of the proposed procedure and the planned sedation have been discussed with the patient. All questions have been answered and informed consent for the procedure has been obtained. Prior to Admission medications Medication Sig Last Dose Discont. Omeprazole 20 MG Oral Capsule Delayed Release (PriLOSEC) Take 1 Capsule by mouth in the morning. 1 hour before the first meal of the day. 08/16/2024 Rosuvastatin Calcium 20 MG Oral Tablet (Crestor) Take 1 Tablet by mouth in the morning. 08/15/2024 Advair HFA 115-21 MCG/ACT Inhalation Aerosol Inhale 2 Puffs by mouth in the morning and 2 Puffs before bedtime. 08/16/2024 Fosinopril Sodium 40 MG Oral Tablet (Monopril) Take 1 Tablet by mouth in the morning. 08/15/2024 hydroCHLOROthiazide 25 MG Oral Tablet (Hydrodiuril) Take 1 Tablet by mouth in the morning. 08/15/2024 Carvedilol 25 MG Oral Tablet (Coreg) Take 1 Tablet by mouth in the morning and 1 Tablet before bedtime. with food. 08/15/2024 Fluticasone Propionate 50 MCG/ACT Nasal Suspension (Flonase) Administer 2 Sprays into each nostril in the morning. 08/16/2024 Review of patient's allergies indicates: No Known Allergies BP 122/80 | Pulse 88 | Temp 36 C (96.8 F) (Tympanic) | Resp 17 | Ht 1.778 m (5' 10") | Wt 105.7kg (233 lb) | SpO2 97% | BMI 33.43 kg/m | BSA 2.28 m Physical Exam: Mental Status Examination: alert and oriented. Resp normal CV normal ASA Grade: III - A patient with severe systemic disease. Abdomen: soft This patient has undergone a preprocedural evaluation. A determination has been made to proceed with the planned procedure under [facility] [place] procedural guidelines and the [facility] Non-Emergent, Elective Medical Services and Treatment Recommendations (published on 02-13-20). The community and hospital prevalence of COVID-19 has been discussed as well as this patient's specific risks associated with SARS-CoV-19 infection. Based upon the clinical acuity and patient-specific care considerations, this procedure is deemed a Tier III - Procedures at little or no risk for clinical deterioration (example - cosmetic). After reviewing the risks and benefits, the patient is deemed in satisfactory condition to undergo the procedure. The anesthesia plan is to use general anesthesia. Sonya Tom MD 08/16/2024 documented in this encounter Procedure Notes * Kaitlin Frye CRNP - 08/16/2024 8:28 AM EDTAssociated Order(s): COLONOSCOPY [facility] Patient Name: Myles Irwin Procedure Date: 08/16/2024 8:28 AM Date of : 1955 Admit Type: Outpatient Note Status: Finalized Date of : 1955 Admit Type: Outpatient Age: 68 Room: [facility] 3 Gender: Male Note Status: Finalized Procedure: Colonoscopy Indications: Screening for colorectal malignant neoplasm Providers: Sonya Tom MD Patient Profile: Last Colonoscopy: May 2013. Referring MD: Kaitlin Frye Medicines: See the Anesthesia note for documentation of the administered medications Complications: No immediate complications. Procedure: Pre-Anesthesia Assessment: - Patient identification and proposed procedure were verified prior to the procedure by the physician, the nurse and the anesthesiologist. The procedure was verified in the pre-procedure area. - Prior to the procedure, a History and Physical was performed, and patient medications, allergies and sensitivities were reviewed. The patient's tolerance of previous anesthesia was reviewed. - The risks and benefits of the procedure and the sedation options and risks were discussed with the patient. All questions were answered and informed consent was obtained. - The medication list for this patient has been reviewed prior to the procedure and has been determined that the patient may proceed with the planned study. Any medication changes made as a result of the findings of this procedure have been discussed with the patient and/or brewery representative at the time of discharge from the department. - After I obtained informed consent, the scope was passed under direct vision. All instruments were visually inspected immediately before and after removal from the patient to ensure they are fully intact. Throughout the procedure, the patient's blood pressure, pulse, and oxygen saturations were monitored continuously. The CF-[id number] Colonoscope ([id number]) was introduced through the anus and advanced to the terminal ileum. The colonoscopy was performed without difficulty. The patient tolerated the procedure well. The quality of the bowel preparation was adequate to identify polyps 6 mm and larger in size. Findings & Specimens: The examined terminal ileum appeared normal. The examined colon appeared normal. A 12 mm polyp was found in the sigmoid colon. The polyp was semi-pedunculated and was removed with a hot snare. Resection and retrieval were complete. The pathology specimen was placed into Bottle Number 1. Verification of patient identification for the specimen was done by the physician and nurse using the patient's name and medical record number. Internal hemorrhoids were found during retroflexion. The exam was otherwise without abnormality on direct and retroflexion views. Impression: - The examined portion of the terminal ileum appeared normal. - The examined colon appeared normal. - One 12 mm polyp in the sigmoid colon, removed with a hot snare. Resected and retrieved. - Internal hemorrhoids. - The examination was otherwise normal on direct and retroflexion views. Recommendation: - Await pathology results. - Repeat colonoscopy for surveillance based on pathology results. Sonya Tom MD 08/16/2024 8:56:53 AM This report has been signed electronically. documented in this encounter Nursing Notes * Alesha Lane RN - 08/16/2024 9:26 AM EDT Patient is alert, pain free and tolerating po fluids prior to discharge. Patient has been visited by Dr. Tom. Patient has received and demonstrates understanding of discharge instructions. Patient ambulated to private auto accompanied by endo staff into 's care. * Alesha Lane RN - 08/16/2024 9:15 AM EDT Procedure findings and d/c instructions reviewed w/ pt. Copies given including info about colon polyps and hemorroids. Verbalized understanding. VSS. Monitor d/c'd. Dressing indep at bedside. Call smith in reach. * Alesha Lane RN - 08/16/2024 9:01 AM EDT HOB upright. Eddie liquids w/o problems. Glasses returned to pt. Dr Tom in to speak w/ pt regardingprocedure findings. * Alesha Lane RN - 08/16/2024 8:56 AM EDT Pt received in recovery lying on L side w/ HOB elevated. Abd soft. VSS. Call smith in reach. * Hugh Hagen RN - 08/16/2024 8:54 AM EDT See anesthesia record for medication administered during procedure. Hugh Hagen RN Specimen(s) and location(s) verified with physician post procedure 8:54 AM Hugh Hagen RN Pre cleaning of scope at the bedside started by registered respiratory technician. Mid abdominal pressure given per Dr. Tom to assist with scope advancement. Pt tolerated well * Brenden Alfaro RN - 08/16/2024 7:48 AM EDT The following pt discharge instructions reviewed with pt prior to prodedure: No driving today. No alcohol today. No signing of legal documents. Rest as much as possible today and can return to normal activities tomorrow. No operating any heavy equipment today. Diet as tolerated. Pt verbalized understanding. documented in this encounter Plan of Treatment Upcoming Encounters Date Type Department Care Team (Late st Contact Info) Description 05/08/2025 8:00 AM EDT Office Visit Family [facility] [address] [facility] [place] [address] Kaitlin Frye CRNP [address] [facility] [address] Pending Results Name Type Priority Associated Diagnoses Date /Time SURGICAL PATHOLOGY Pathology Routine Special screening for malignant neoplasms, colon 08/16/2024 8:54 AM EDT Scheduled Orders Name Type Priority Associated Diagnoses Orde r Schedule SURGICAL PATHOLOGY Pathology Routine Special screening for malignant neoplasms, colon Release Upon Ordering for 1 Occurrences starting 08/16/2024 Scheduled Procedures Name Priority Associated Diagnoses Date/Ti me COLONOSCOPY FLEXIBLE PROXIMAL DIAGNOSTIC Special screening for malignant neoplasms, colon 08/16/2024 8:36 AM EDT Health Maintenance Due Date Last Done Comments Pneumococcal Vaccine: 65+ Years (1 of 2 - PCV) 1963 Alpha-1 Antitrypsin 1975 Cologuard 2002 Fecal Occult Blood Test 2002 Sigmoidoscopy 2002 AAA Screening 2022 Adult Wellness Visit 2023 Depression Screening 01/29/2024 01/28/2023 COVID-19 Vaccine ( season) 2024 11/11/2023, 11/11/2023, 09/10/2022, Additional history exists Influenza Vaccine (FLU shot) (#1) 2024 11/11/2023, 11/11/2023, 09/10/2022, Additional history exists HbA1c 12/20/2024 12/20/2023, 03/11/2022 GFR 01/16/2025 01/17/2024, 12/09, 04/01/2022, Additional history exists O2 ASSESSMENT COMPLETED IN PAST YEAR FOR COPD 08/16/2025 08/16/2024 Albumin/Creatinine Ratio 12/20/2026 12/20/2023, 03/0 07/2020 Lipid Panel 12/20/2028 12/20/2023, 05/08, 12/15/2019, Additional history exists DTap/Tdap Vaccines (3 - Td or Tdap) 10/15/2032 10/15/2022, 05/03/2013, 03/17/2004 Colonoscopy 08/16/2034 08/16/2024, 05/08, 05/19/2013 Colorectal Cancer Screening 08/16/2034 Zoster Vaccines Completed 09/16/2020, 07/08/2020 HPV (Gardasil) [...] this encounter Medical Devices Implanted Type Area Commercial Crabber Device Identifier Shelf Expiration Date Model / Serial / Lot Screw Bone 6.5x25mm - [id number] Implanted:Qty: 1 on 03/31/2022 by Rosales Winters MD at OR [facility] Screw Left: Hip JOSE : ORTHOPAEDICS 03/02/2027 8256-1917 / / WTTA 6.5mm Low Profile Hex Screw 6 - [id number] Implanted:Qty: 1 on 03/31/2022 by Rosales Winters MD at OR [facility] Screw Left: Hip JOSE : ORTHOPAEDICS 03/05/2027 [id number] / / [id number] Acetabular Clusterhole Shell56 - [id number] Implanted:Qty: 1 on 03/31/2022 by Rosales Winters MD at OR [facility] Left: Hip JOSE : ORTHOPAEDICS 01/15/2027 702-04-56F / / [id number] Trident Acetabular X3 10 36 F - [id number] Implanted:Qty: 1 on 03/31/2022 by Rosales Winters MD at OR [facility] Left: Hip JOSE : ORTHOPAEDICS 03/31/2026 723-10-36F / / [id number] Secur-Fit Advanced 132 Degree Neck Angle V40 Hip Stem Implanted:Qty: 1 on 03/31/2022 by Rosales Winters MD at OR [facility] Left: Hip JOSE : ORTHOPAEDICS 09/22/2025 [id number] / / [id number] Description:Size 9, 34mm Nec k Length, 142mm Stem Length, V40 Taper Hip Hd Valeriano Ortega 36/+25 - [id number] Implanted:Qty: 1 on 03/31/2022 by Rosales Winters MD at OR [facility] Left: Hip JOSE : ORTHOPAEDICS 05/19/2026 6570-0-536 / / [id number] documented as of this encounter Procedures Procedure Name Priority Date/Time Associated Diagnosis Comments COLONOSCOPY 08/16/2024 8:28 AM EDT documented in this encounter Results * COLONOSCOPY (08/16/2024 8:28 AM EDT) 08/16/2024 8:28 AM EDT Narrative Procedure Note Kaitlin Frye CRNP - 08/16/2024 8:28 AM EDT [facility] Patient Name: Myles Irwin Procedure Date: 08/16/2024 8:28 AM Date of : 1955 Admit Type: Outpatient Note Status:Finalized Date of : 1955 Admit Type: Outpatient Age: 68 Room: Endo 3 Gender: Male Note Status: Finalized Procedure: Colonoscopy Indications: Screening for colorectal malignant neoplasm Providers: Sonya Tom MD Patient Profile: Last Colonoscopy: May 2013. Referring MD: Kaitlin Frye Medicines: See the Anesthesia note for documentation of theadministered medications Complications: No immediate complications. Procedure: Pre-Anesthesia Assessment: - Patient identification and proposed procedurewere verified prior to the procedure by the physician, the nurse and theanesthesiologist. The procedure was verified in the pre-procedure area. - Prior to the procedure, a History and Physicalwas performed, and patient medications, allergies and sensitivities werereviewed. The patient's tolerance of previous anesthesia was reviewed. - The risks and benefits of the procedure and thesedation options and risks were discussed with the patient. All questions wereanswered and informed consent was obtained. - The medication list for this patient has beenreviewed prior to the procedure and has been determined that the patient may proceed with the plannedstudy. Any medication changes made as a result of the findings of this procedure have beendiscussed with the patient and/or brewery representative at the time of discharge from thedepartment. - After I obtained informed consent, the scope waspassed under direct vision. All instruments were visually inspected immediatelybefore and after removal from the patient to ensure they are fully intact. Throughout the procedure, the patient's bloodpressure, pulse, and oxygen saturations were monitored continuously. The [id number] ([id number]) was introduced through the anus and advanced to the terminalileum. The colonoscopy was performed without difficulty. The patient tolerated theprocedure well. The quality of the bowel preparation was adequate to identify polyps 6mm and larger in size. Findings & Specimens: The examined terminal ileum appeared normal. The examined colon appeared normal. A 12 mm polyp was found in the sigmoid colon. The polyp wassemi-pedunculated and was removed with a hot snare. Resection and retrieval were complete. The pathologyspecimen was placed into Bottle Number 1. Verification of patient identification for the specimen was doneby the physician and nurse using the patient's name and medical record number. Internal hemorrhoids were found during retroflexion. The exam was otherwise without abnormality on direct and retroflexionviews. Impression: - The examined portion of the terminal ileumappeared normal. - The examined colon appeared normal. - One 12 mm polyp in the sigmoid colon, removedwith a hot snare. Resected and retrieved. - Internal hemorrhoids. - The examination was otherwise normal on directand retroflexion views. Recommendation: - Await pathology results. - Repeat colonoscopy for surveillance based onpathology results. Sonya Tom MD 08/16/2024 8:56:53 AM This report has been signed electronically. Kaitlin REYNOSO GASTRO LOWER documented in this encounter Visit Diagnoses Diagnosis Special screening for malignant neoplasms, colon documented in this encounter Administered Medications Inactive Administered Medications - up to 3 most recent administrations Medication Order MAR Action Action Date Dose Rate Site isolyte-S pH 7.4 infusion Intravenous, at 100 mL/hr, Plasma-LYTE 148, isolyte-S, and isolyte-S pH 7.4 are considered equivalent - including for MAR barcode scanning., PRN, Starting on Wed08/16/24 at 0746, Until Wed08/16/24 at 1045, Pre-Op Continue from Pre-Op 08/16/2024 8:35 AM EDT 100 mL/hr New Bag 08/16/2024 8:11 AM EDT 100 mL/hr documented in this encounter Active and Recently Administered Medications Times are shown in EDT. PRN Medication Order 08/14/2024 08/15/2024 08/16/2024 isolyte-S pH 7.4 infusion Intravenous, at 100 mL/hr, Plasma-LYTE 148, isolyte-S, and isolyte-S pH 7.4 are considered equivalent - including for MAR barcode scanning., PRN, Starting on Wed08/16/24 at 0746, Until Wed08/16/24 at 1045, Pre-Op 0811 (New Bag - Prov ider: Brenden Alfaro RN)0835 (Continue from Pre-Op - Provider: Peter Perea CRNA)0852 (Anes Intra-Op Fluid - Provider: Peter Perea CRNA) documented in this encounter Advance Directives * Full Code (Latest Code Status on File) Date Activated Date Inactivated Comments 03/31/2022 11:03 AM 04/01/2022 2:51 PM This order reflects the patients wishes and were consensually agreed upon. Care Teams Medical Affairs Director Relationship Specialty Start Date End Date Kaitlin Frye CRNP [address] [address] PCP - General Nurse Practitioner 12/27/23 documented as of this encounter
--- OUTSIDE RECORDS SUMMARY | 2024-08-18 13:24 | External Medical Summary | Summary of Care ---
Author Name Unknown Organization [facility] Address [address] [facility] [place] [address] Phone [phone] Care Team Providers Care General Clerk Name Role Phone Mónicaaudie Kaitlin ANGELES Primary Care Provider +1- [phone] Encounter Details Date Type Department Care Team (Late st Contact Info) Description 08/10/2024 Orders Only PATIENT PORTAL DO NOT DELETE THIS DEPT USED BY [place] [id number] Allergies No known active allergiesdocumented as of this encounter (statuses as of 08/10/2024) Medications Medication Sig Dispensed Refills Start Date [...] as of this encounter (statuses as of 08/10/2024) Active Problems Problem Noted Date Diagnosed Date [...] as of this encounter (statuses as of 08/10/2024) Resolved Problems Problem Noted Date Diagnosed Date Resolved Date COPD, mild 10/20/2021 02/18/2023 Overview: Per COPD GOLD Classification documented as of this encounter (statuses as of 08/10/2024) Immunizations Name Administration Dates Next Due COVID-19 [...] Description 08/14/2024 1:15 PM EDT Telemedicine Orthopaedics [facility] [address] [place] [address] Mesfin Rodriguez MD [address] [place] [address] 08/16/2024 8:30 AM EDT Hospital Encounter [facility], Endoscopy Room [facility] [address] [place] [phone] Sonya Tom MD [address] [place] [address] 08/16/2024 8:30 AM EDT - 08/16/2024 9:00 AM EDT Surgery [facility], Endoscopy Room [facility] [address] [place] [phone] Sonya Tom MD [address] [place] [address] COLONOSCOPY FLEXIBLE PROXIMAL DIAGNOSTIC 05/08/2025 8:00 AM EDT Office Visit [facility] [address] [place] [address] Kaitlin Frey CRNP [address] [place] [address] Scheduled Procedures Name Priority Associated Diagnoses Date/Ti [...] this encounter Medical Devices Implanted Type Area Business System Consultant Device Identifier Shelf Expiration Date Model / Serial / Lot Screw Bone 6.5x25mm - [id number] Implanted:Qty: 1 on 03/31/2022 by Rosales Winters MD at OR [facility] Screw Left: Hip JOSE : ORTHOPAEDICS 03/02/2027 [id number] / / WTTA 6.5mm Low Profile Hex Screw 6 - [id number] Implanted:Qty: 1 on 03/31/2022 by Rosales Winters MD at OR [facility] Screw Left: Hip JOSE : ORTHOPAEDICS 03/05/2027 [id number] / / [id number] Acetabular Clusterhole Shell56 - [id number] Implanted:Qty: 1 on 03/31/2022 by Rosales Winters MD at OR [facility] Left: Hip JOSE : ORTHOPAEDICS 01/15/2027 702-04-56F / / [id number] Trident Acetabular X3 10 36 F - [id number] Implanted:Qty: 1 on 03/31/2022 by Rosales Winters MD at OR [facility] Left: Hip JOSE : ORTHOPAEDICS 03/31/2026 723-10-36F / / [id number] Secur-Fit Advanced 132 Degree Neck Angle V40 Hip Stem Implanted:Qty: 1 on 03/31/2022 by Rosales Winters MD at OR [facility] Left: Hip JOSE : ORTHOPAEDICS 09/22/2025 [id number] / / [id number] Description:Size 9, 34mm Nec k Length, 142mm Stem Length, V40 Taper Hip Hd Nk Alumina Md Ortega 36/+25 - [id number] Implanted:Qty: 1 on 03/31/2022 by Rosales Winters MD at OR [facility] Left: Hip JOSE : ORTHOPAEDICS 05/19/2026 6570-0-536 / / [id number] documented as of this encounter Advance Directives * Full Code (Latest Code Status on File) Date Activated Date Inactivated Comments 03/31/2022 11:03 AM 04/01/2022 2:51 PM This order reflects the patients wishes and were consensually agreed upon. Care Teams General Clerk Relationship Specialty Start Date End Date Kaitlin Frye CRNP [address] [place] [address] PCP - General Nurse Practitioner 12/27/23 documented as of this encounter
--- OUTSIDE RECORDS SUMMARY | 2024-08-18 13:24 | External Medical Summary | Summary of Care ---
Author Name Unknown Organization [facility] Address [address] [facility] [place] [address] Phone [phone] Care Team Providers Care Lithographic Printing Machinist Name Role Phone Kaitlin Frye ANGELES Primary Care Provider +1- [phone] Reason for Visit * Reason Comments Outpatient Testing Encounter Details Date Type Department Care Team (Late st Contact Info) Description 07/05/2024 12:30 PM EDT Laboratory Laboratory, [facility] [address] [place] [id number] [facility]ud payne [facility] [address] [place] [address] Dyslipidemia; Encounter for long-term (current) use of [...] 1:00 PM EDT Office Visit Family Practice [facility] [address] [place] [address] Kaitlin Frye CRNP [address] [place] [address] 08/14/2024 1:15 PM EDT Telemedicine Orthopaedics [facility] [address] [facility] [place] [address] Mesfin Rodriguez MD [address] [place] [address] 08/16/2024 8:30 AM EDT Hospital Encounter ENDO [facility], Endoscopy Room [facility] [address] [place] [phone] Sonya Tom MD [address] [place] [address] 08/16/2024 8:30 AM EDT - 08/16/2024 9:00 AM EDT Surgery ENDO [facility], Endoscopy Room [facility] [address] [place] [phone] Sonya Tom MD [address] [place] [id number] COLONOSCOPY FLEXIBLE PROXIMAL DIAGNOSTIC Scheduled Procedures Name [...] this encounter Medical Devices Implanted Type Area Gas Controller Device Identifier Shelf Expiration Date Model / Serial / Lot Screw Bone 6.5x25mm - [id number] Implanted:Qty: 1 on 03/31/2022 by Rosales Winters MD at OR [facility] Screw Left: Hip JOSE : ORTHOPAEDICS 03/02/2027 [id number] / / WTTA 6.5mm Low Profile Hex Screw 6 - [id number] Implanted:Qty: 1 on 03/31/2022 by Rosales Winters MD at OR [facility] Screw Left: Hip JOSE : ORTHOPAEDICS 03/05/2027 [id number] / / [id number] Acetabular Clusterhole Shell56 - [id number] Implanted:Qty: 1 on 03/31/2022 by Rosales Winters MD at OR [facility] Left: Hip JOSE : ORTHOPAEDICS 01/15/2027 702-04-56F / / [id number] Trident Acetabular X3 10 36 F - [id number] Implanted:Qty: 1 on 03/31/2022 by Rosales Winters MD at OR [facility] Left: Hip JOSE : ORTHOPAEDICS 03/31/2026 723-10-36F / / [id number] Secur-Fit Advanced 132 Degree Neck Angle V40 Hip Stem Implanted:Qty: 1 on 03/31/2022 by Rosales Winters MD at OR [facility] Left: Hip JOSE : ORTHOPAEDICS 09/22/2025 [id number] / / [id number] Description:Size 9, 34mm Nec k Length, 142mm Stem Length, V40 Taper Hip Hd Nk Alumina D 36/+25 - [id number] Implanted:Qty: 1 on 03/31/2022 by Rosales Winters MD at OR [facility] Left: Hip JOSE : ORTHOPAEDICS 05/19/2026 6570-0-536 / / [id number] documented as of this encounter Visit Diagnoses [...] and were consensually agreed upon. Care Teams Lithographic Printing Machinist Relationship Specialty Start Date End Date Kaitlin Frye CRNP [address] [place] [address] PCP - General Nurse Practitioner 12/27/23 documented as of this encounter
--- OUTSIDE RECORDS SUMMARY | 2024-08-18 13:24 | External Medical Summary | Summary of Care ---
Author Name Unknown Organization [facility] Address [address] [place] [address] Phone [phone] Care Team Providers Care Baggage Handler Name Role Phone Kaitlin FryeNP Primary Care Provider +1- [phone] Reason for Visit * Reason Comments New Problem R knee Encounter Details Date Type Department Care Team (Latest Contact Info) Description 07/03/2024 9:00 AM EDT Office Visit Orthopaedics [facility] [address] [place] [address] Mesfin Rodriguez MD [address] [place] [address] Hip pain, right*; Chronic pain of right knee; Primary osteoarthritis of right knee Allergies No known active allergiesdocumented as of this encounter (statuses as of 07/03/2024) Medications Medication Sig Dispensed Refills Start Date [...] IN THE MORNING 90 Tablet 06/19/2024 Active Hospital, Clinic, or Other Facility Administered Medication Ordered Dose Route Frequency Start Date End Date Status lidocaine 1% 1 mL - triamcinolone acetonide 40 mg/mL 1 mL inj 2 mLIndications:Primary osteoarthritis of right knee 2 mL IJ ONCE 07/03/2024 07/03/2024 Ended documented as of this encounter (statuses as of 07/03/2024) Active Problems Problem Noted Date Diagnosed Date [...] as of this encounter (statuses as of 07/03/2024) Resolved Problems Problem Noted Date Diagnosed Date Resolved Date COPD, mild 10/20/2021 02/18/2023 Overview: Per COPD GOLD Classification documented as of this encounter (statuses as of 07/03/2024) Immunizations Name Administration Dates Next Due COVID-19 [...] No 03/31/2022 documented as of this encounter Patient Instructions * Patient Instructions* Mesfin Rodriguez MD - 07/03/2024 10:01 AM EDT I suspect your pain is secondary to arthritis which is moderate in the medial or inside part of theknee and patellofemoral or underneath the kneecap Try this medicine first before adding additional [...] a limit ibuprofen as much as possible. Depending on your results to the steroid injection today additional options in the future would include: Injection of the knee with steroid with ultrasound guidance, viscosupplementation (hyaluronic acid), PRP (not covered by insurance is 450 dollars out of pocket), and physical therapy documented in this encounter Progress Notes * Mesfin Rodriguez MD - 07/03/2024 9:17 AM EDT Myles Irwin [id number] Myles Irwin is a 68 year old male who presents for consultation for right hip and right knee injury/pain to [facility] Sports [facility]. Consult requested by Self . Myles Irwin is here unaccompanied Quality: reviewed and agree with Nursing Notes for HPI elements History: History - Pt c/o R knee pain 01/15 [...] he had total hip arthroplasty in 2021. 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 - [employer] Employer: [employer] Tobacco Use Smoking status: Former Current packs/day: 0.00 Types: Cigarettes Quit date: 03/17/1976 Years since quittin.3 Passive exposure: Past Smokeless tobacco: Former Types: [...] on file Housing Stability: Not on file Physical Exam Constitutional: Generally well-nourished and in no acute distress Psychiatric: Mood and Affect normal Eyes: EOMI Respiratory: Normal respiratory effort with regular rate and rhythm Cardiovascular: No edema in the affected extremity(s) Knee Exam, Bilateral Inspection: Unremarkable Alignment: Normal Bilateral Effusion: Negative Bilateral Palpation: Tender palpate along medial joint ROM: Flexion/Neutral/Extension: L - 120/0/0, R - 120/0/0 Popliteal Angle (Hamstring Flexibility): 30 Bilateral Strength: SLR: Extension: L - 5/5, R - 5/5 Flexion: L - 5/5, R - 5/5 Quadriceps Tone: Good and Equal Bilateral Special Tests: Positive crepitus on right Hip and Pelvis Exam ROM: Flexion (normal 120-130): R - 120 Internal at 90 (normal 45): R - 45 External at 90 (normal 50): R - 50 Strength: Abduction: L5/5, R - 5/5 Internal Rotation: L5/5, R - 5/5 Quads: L5/5, R - 5/5 Hams: L5/5, R - 5/5 Adduction: L5/5, R - 5/5 Special Tests: Standing Forward Flexion: Symmetric and Neutral Trendelenburg: Negative Bilateral Single leg squat: Negative bilateral Modified Kayden: Negative Bilateral Passive Internal and External Rotation of Femoral Head: Negative Bilateral Piriformis: No Restriction Bilateral Gold's: Negative Bilateral Resisted Abduction (Gluteus Medius): Normal and Equal Strength Bilateral Ksenia: Negative Bilateral Ludloff Sign for Iliopsoas Tendinitis: Negative Bilateral Snapping Hip: Negative Bilateral Labrum Tests: FADIR: Negative Bilateral Scrub: Negative Bilateral Athletic Pubalgia tests: Pain with sit sit up at distal rectus femoris on superior pubic ridge: Negative Bilateral Pain with resisted adduction in high adductor complex: Negative Bilateral Lumbar Spine Tests: Lumbar Spine with full active ROM and negative SLR Slump Test: Negative Radiology: 07/03/2024: three-view x-ray of the right hip including AP pelvis Mild to moderate degenerative changes of the right hip, total left hip arthroplasty without signs of hardware failure loosening based on single-view - per my interpretation. Awaiting formal radiology interpretation. 07/03/2024: 4 view xr of the R knee Tricompartmental degenerative changes, moderate in the medial compartment and moderate in the PF compartment - per my interpretation. Awaiting formal radiology interpretation. Assessment and Plan: 1) right knee pain Suspect secondary to DJD which is greatest in the moderate compartment and where he is most symptomatic Discussed treatment options for arthritis including: Physical therapy, OTC/prescription medications, topical anti-inflammatory, steroid injections, hyaluronic acid injections (one shot and three shot), and PRP injections Intra-articular steroid injection performed today. Discussed possibility of using ultrasound guidance versus palpation/landmark. He elected patient's/landmark. For lack of substantial improvement with injection could consider use of ultrasound in the future. Patient's right hip is not symptomatic. However, he requested right hip radiographs as on his left side he had some left knee pain that was determined to be somewhat secondary to hip pain. Note: Patient has history of AVN of the left hip and had total hip arthroplasty by Dr. Rosales Winters(orthopaedic surgery - [facility]) in March of 2022. Try this medicine first before adding additional [...] a limit ibuprofen as much as possible. Depending on your results to the steroid injection today additional options in the future would include: Injection of the knee with steroid with ultrasound guidance, viscosupplementation (hyaluronic acid), PRP (not covered by insurance is 450 dollars out of pocket), and physical therapy Telephone follow-up 3-6 weeks Procedure note (knee injection), Right : Time out: Prior to injection, a time out was called to confirm the administration of appropriate medicine, patient name, procedure and confirm to the best of our ability and knowledge the presence of any necessary risks and benefits. Patient verbalizes understanding. Sterile techinique applied. Skin sterilized with alcohol swab. Knee injected using 1.5 inch, 22 gauge needle. Injected with 1 ml lidocaine 1%, triamcinolone acetonide 40mg/ml 1 ml. Patient tolerated procedure with no significant bleeding or adverse reaction. Patient instructed to call or return to clinic for fever or warmth and redness at injection site for potential infection. Patient also advised as to potential for steroid flare reaction including increased pain and redness at injection site which should be treated with ice and resolve within 24 hours. Mesfin Rodriguez MD Primary Care Sports Medicine Orthopaedics [address] [address] documented in this encounter Nursing Notes * Carey Culver LPN - 07/03/2024 9:05 AM EDT New problem Pt c/o R knee pain 01/15 today Pt would like xray of his R knee and R Hip today Pt is unaccompanied today Karon Stockton LPN documented in this encounter Plan of Treatment Upcoming Encounters Date Type Department Care Team (Latest Contact Info) Description 07/21/2024 1:00 PM EDT Office Visit Family Practice [facility] [address] [place] [address] Kaitlin Frye CRNP [address] [place] [address] 08/14/2024 1:15 PM EDT Office Visit Orthopaedics [facility] [address] [place] [address] Mesfin Rodriguez MD [address] [place] [address] 08/16/2024 8:30 AM EDT Hospital Encounter ENDO [facility], Endoscopy Room [facility] [address] [place] [phone] Sonya Tom MD [address] [place] [address] 08/16/2024 8:30 AM EDT - 08/16/2024 9:00 AM EDT Surgery ENDO [facility], Endoscopy Room [facility] [address] [place] [phone] Sonya Tom MD [address] [place] [address] COLONOSCOPY FLEXIBLE PROXIMAL DIAGNOSTIC Pending Results Name Type Priority Associated Diagnoses Date /Time XR HIP UNILAT 2-3 VIEWS INCLUDING AP PELVIS Medical Imaging Routine Hip pain, right 07/03/2024 9:38 AM EDT XR KNEE 4 OR MORE VIEWS Medical Imaging Routine Chronic pain of right knee 07/03/2024 9:38 AM EDT Scheduled Procedures Name Priority Associated Diagnoses [...] 12/20/2028 12/20/2023, 05/08, 12/15/2019, Additional history exists DTaP,Tdap,and Td Vaccines (3 - Td or Tdap) 10/15/2032 [...] this encounter Medical Devices Implanted Type Area Early Childhood Education Instructor Device Identifier Shelf Expiration Date Model / Serial / Lot Screw Bone 6.5x25mm - [id number] Implanted:Qty: 1 on 03/31/2022 by Rosales Winters MD at OR [facility] Screw Left: Hip JOSE : ORTHOPAEDICS 03/02/2027 [id number] / / WTTA 6.5mm Low Profile Hex Screw 6 - [id number] Implanted:Qty: 1 on 03/31/2022 by Rosales Winters MD at OR [facility] Screw Left: Hip JOSE : ORTHOPAEDICS 03/05/2027 [id number] / / [id number] Acetabular Clusterhole Shell56 - [id number] Implanted:Qty: 1 on 03/31/2022 by Rosales Winters MD at OR [facility] Left: Hip JOSE : ORTHOPAEDICS 01/15/2027 702-04-56F / / [id number] Trident Acetabular X3 10 36 F - [id number] Implanted:Qty: 1 on 03/31/2022 by Rosales Winters MD at OR [facility] Left: Hip JOSE : ORTHOPAEDICS 03/31/2026 723-10-36F / / [id number] Secur-Fit Advanced 132 Degree Neck Angle V40 Hip Stem Implanted:Qty: 1 on 03/31/2022 by Rosales Winters MD at OR [facility] Left: Hip JOSE : ORTHOPAEDICS 09/22/2025 [id number] / / [id number] Description:Size 9, 34mm Nec k Length, 142mm Stem Length, V40 Taper Hip Hd Valeriano Ortega 36/+25 - [id number] Implanted:Qty: 1 on 03/31/2022 by Rosales Winters MD at OR [facility] Left: Hip JOSE : ORTHOPAEDICS 05/19/2026 6570-0-536 / / [id number] documented as of this encounter Visit Diagnoses Diagnosis Hip pain, right- Primary Pain in joint, pelvic region and thigh Chronic pain of right knee Primary osteoarthritis of right knee Primary localized osteoarthrosis, lower leg Special screening for malignant neoplasms, colon documented in this encounter Administered Medications Inactive Administered Medications - up to 3 most recent administrations Medication Order MAR Action Action Date Dose Rate Site lidocaine 1% 1 mL - triamcinolone acetonide 40 mg/mL 1 mL inj 2 mL 2 mL, Injection, ONCE, On 07/03/24 at 1045, For 1 dose, Lidocaine 1% 1mL Triamcinolone Acetonide 40 mg/mL 1 mL (Final concentration = 20 mg/mL) REFRIGERATE and SHAKE WELL Given 07/03/2024 10:19 AM EDT 2 mL Knee Right documented in this encounter Advance Directives * Full Code (Latest Code Status on File) Date Activated Date Inactivated Comments 03/31/2022 11:03 AM 04/01/2022 2:51 PM This order reflects the patients wishes and were consensually agreed upon. Care Teams Baggage Handler Relationship Specialty Start Date End Date Kaitlin Frye CRNP [address] [place] [address] PCP - General Nurse Practitioner 12/27/23 documented as of this encounter
--- OUTSIDE RECORDS SUMMARY | 2024-08-18 13:24 | External Medical Summary | Summary of Care ---
Author Name Unknown Organization [facility] Address [address] [place] [address] Phone [phone] Care Team Providers Care Accounting System Expert Name Role Phone Kaitlin Frye Primary Care Provider +1- [phone] Reason for Visit * Reason Comments Return Visit 6 month recheck Encounter Details Date Type Department Care Team (Late st Contact Info) Description 08/08/2024 8:20 AM EDT Office Visit Family [facility] [address] [place] [address] Kaitlin Frye CRNP [address] [place] [address] Encounter for long-term (current) use of medications*; Gastroesophageal reflux disease without esophagitis; Dyslipidemia; HTN, goal below 130/80; Special screening for malignant neoplasms, colon; COPD, mild (HCC); Prediabetes Allergies No known active allergiesdocumented as of this encounter (statuses as of 08/08/2024) Medications Medication Sig Dispensed Refills Start Date End Date Status Fluticasone Propionate 50 MCG/ACT Nasal Suspension (Flonase)Indicati ons:Chronic rhinitis Administer 2 Sprays into each nostril in the morning. 16 g 11 12/20/2023 Active Carvedilol 25 MG Oral Tablet (Coreg)Indication s:HTN, goal below 130/80 Take 1 Tablet by mouth in the morning and 1 Tablet before bedtime. with food. 60 Tablet 11 12/20/2023 Active hydroCHLOROthiazi de 25 MG Oral Tablet (Hydrodiuril)Holly cations:HTN, goal below 130/80 Take 1 Tablet by mouth in the morning. 90 Tablet 3 01/06/2024 Active Fosinopril Sodium 40 MG Oral Tablet (Monopril)Indicat ions:HTN, goal below 130/80 Take 1 Tablet by mouth in the morning. 90 Tablet 2 03/29/2024 Active Advair HFA 115-21 MCG/ACT Inhalation Aerosol Inhale 2 Puffs by mouth in the morning and 2 Puffs before bedtime. 12 g 2 05/15/2024 Active Rosuvastatin Calcium 20 MG Oral Tablet (Crestor)Indicati ons:Dyslipidemia Take 1 Tablet by mouth in the morning. 90 Tablet 3 08/08/2024 Active Omeprazole 20 MG Oral Capsule Delayed Release (PriLOSEC)Indicat ions:Gastroesopha geal reflux disease without esophagitis Take 1 Capsule by mouth in the morning. 1 hour before the first meal of the day. 30 Capsule 5 08/08/2024 Active Omeprazole 40 MG Oral Capsule Delayed Release (PriLOSEC)Indicat ions:Gastroesopha geal reflux disease without esophagitis Take 1 Capsule by mouth in the morning. 90 Capsule 3 02/16/2024 4 Discontinued Atorvastatin Calcium 40 MG Oral Tablet (Lipitor)Indicati ons:Dyslipidemia TAKE 1 TABLET BY MOUTH EVERY DAY IN THE MORNING 90 Tablet 06/19/2024 4 Discontinued documented as of this encounter (statuses as of 08/08/2024) Active Problems Problem Noted Date Diagnosed Date [...] as of this encounter (statuses as of 08/08/2024) Resolved Problems Problem Noted Date Diagnosed Date Resolved Date COPD, mild 10/20/2021 02/18/2023 Overview: Per COPD GOLD Classification documented as of this encounter (statuses as of 08/08/2024) Immunizations Name Administration Dates Next Due COVID-19 [...] Sign Reading Time Taken Comments Blood Pressure 122/68 08/08/2024 8:25 AM EDT Pulse 58 08/08/2024 8:25 AM EDT Temperature 36 C (96.8 F) 08/08/2024 8:25 AM EDT Respiratory Rate - - Oxygen Saturation - - Inhaled Oxygen Concentration - - Weight 105.9 kg (233 lb 8 oz) 08/08/2024 8:25 AM EDT Height 177.8 cm (5' 10") 08/08/2024 8:25 AM EDT Body Mass Index 33.5 08/08/2024 8:25 AM EDT documented in this encounter Functional [...] (15 years old or older) No 03/31/20 22 Cognitive Status Response Date of Assessm ent Because of a physical, menta l, or emotional condition, do you have serious difficulty concentrating, remembering, or making decisions? (5 years old or older) No 03/31/2022 documented as of this encounter Progress Notes * Kaitlin Frye CRNP - 08/08/2024 8:35 AM EDT Images from the original note were not included. History of Present Illness Myles Irwin is a 68 year old male that presents for Return Visit (6 month recheck ) HPI Here for recheck Overall doing well Due for some labs Would like to switch back to crestor from lipitor due to cost Colonoscopy next week No dark/black stools or visible blood in stool Will try to lower omeprazole and then wean to pepcid at next visit Current Outpatient Medications Medication Sig Dispense Refill Omeprazole 20 MG Oral Capsule Delayed Release (PriLOSEC) Take 1 Capsule by mouth in the morning. 1 hour before the first meal of the day. 30 Capsule 5 Rosuvastatin Calcium 20 MG Oral Tablet (Crestor) Take 1 Tablet by mouth in the morning. 90 Tablet 3 Advair HFA 115-21 MCG/ACT Inhalation Aerosol Inhale 2 Puffs by mouth in the morning and 2 Puffs before bedtime. 12 g 2 Fosinopril Sodium 40 MG Oral Tablet (Monopril) Take 1 Tablet by mouth in the morning. 90 Tablet 2 hydroCHLOROthiazide 25 MG Oral Tablet (Hydrodiuril) Take 1 Tablet by mouth in the morning. 90 Tablet 3 Carvedilol 25 MG Oral Tablet (Coreg) Take 1 Tablet by mouth in the morning and 1 Tablet before bedtime. with food. 60 Tablet 11 Fluticasone Propionate 50 MCG/ACT Nasal Suspension (Flonase) Administer 2 Sprays into each nostril in the morning. 16 g 11 No current facility-administered medications for this visit. Physical Exam Vitals: 08/08/24 0825 Temp: 36 C (96.8 F) Pulse: 58 BP: 122/68 BMI: 33.5 Physical Exam Vitals reviewed. Constitutional: Appearance: Normal appearance. HENT: Head: Normocephalic and atraumatic. Right Ear: Tympanic membrane, ear canal and external ear normal. Left Ear: Tympanic membrane, ear canal and external ear normal. Nose: Nose normal. Mouth/Throat: Mouth: Mucous membranes are moist. Eyes: Extraocular Movements: Extraocular movements intact. Conjunctiva/sclera: Conjunctivae normal. Pupils: Pupils are equal, round, and reactive to light. Cardiovascular: Rate and Rhythm: Normal rate and regular rhythm. Heart sounds: Normal heart sounds. Pulmonary: Effort: Pulmonary effort is normal. Breath sounds: Normal breath sounds. Abdominal: General: There is no distension. Palpations: Abdomen is soft. Tenderness: There is no abdominal tenderness. Musculoskeletal: Cervical back: Neck supple. Right lower leg: No edema. Left lower leg: No edema. Lymphadenopathy: Cervical: No cervical adenopathy. Skin: General: Skin is warm and dry. Capillary Refill: Capillary refill takes less than 2 seconds. Neurological: Mental Status: He is alert and oriented to person, place, and time. Psychiatric: Behavior: Behavior normal. Thought Content: Thought content normal. Assessment and Plan Encounter for long-term (current) use of medications - COMPREHENSIVE METABOLIC PANEL; Future - LIPID PANEL WITH DIRECT LDL IF TG IS HIGH; Future - CBC WITH WBC DIFFERENTIAL; Future Gastroesophageal reflux disease without esophagitis - Omeprazole 20 MG Oral Capsule Delayed Release (PriLOSEC); Take 1 Capsule by mouth in the morning.1 hour before the first meal of the day. Dyslipidemia - Rosuvastatin Calcium 20 MG Oral Tablet (Crestor); Take 1 Tablet by mouth in the morning. - LIPID PANEL WITH DIRECT LDL IF TG IS HIGH; Future HTN, goal below 130/80 - COMPREHENSIVE METABOLIC PANEL; Future - ALBUMIN / CREATININE RATIO, URINE; Future Special screening for malignant neoplasms, colon COPD, mild (HCC) Prediabetes - HEMOGLOBIN A1C; Future Wrap-Up Follow Up: Return in about 9 months (around 05/08/2025), or if symptoms worsen or fail to improve, for Labs 2-5 Days Before Next Visit. | For: Labs 2-5 Days Before Next Visit Time: I spent a total of 30-39 minutes (exact time 30 mins) on the date of service in preparation, delivery, and documentation of the care provided to Myles Irwin excluding any time spent in the performance of separately billed services. documented in this encounter Nursing Notes * Luz Marina Booker LPN - 08/08/2024 8:24 AM EDT The patient has been properly identified by confirmation of name and date of . Chief Complaint Patient presents with Return Visit 6 month recheck Pt interested in changing back to roustuvastain from atorvastatin. Due to bills. documented in this encounter Plan of Treatment Upcoming Encounters Date Type Department Care Team (Latest Contact Info) Description 08/14/2024 1:15 PM EDT Telemedicine Orthopaedics [facility] [address] [place] [address] Mesfin Rodriguez MD [address] [place] [address] 08/16/2024 8:30 AM EDT Hospital Encounter ENDO [facility], Endoscopy Room [facility] [address] [place] [phone] Sonya Tom MD [address] [place] [address] 08/16/2024 8:30 AM EDT - 08/16/2024 9:00 AM EDT Surgery ENDO [facility], Endoscopy Room [facility] [address] [place] [phone] Sonya Tom MD [address] [place] [address] COLONOSCOPY FLEXIBLE PROXIMAL DIAGNOSTIC 05/08/2025 8:00 AM EDT Office Visit [facility] [address] [place] [address] Kaitlin Frye CRNP [address] [place] [address] Scheduled Orders Name Type Priority Associated Diagnoses Orde r Schedule COMPREHENSIVE METABOLIC PANEL Lab Routine Encounter for long-term (current) use of medications HTN, goal below 130/80 Expected: 08/08/2024 (Approximate), Expires: 08/08/2025 LIPID PANEL WITH DIRECT LDL IF TG IS HIGH Lab Routine Dyslipidemia Encounter for long-term (current) use of medications Expected: 08/08/2024, Expires: 08/08/2025 CBC WITH WBC DIFFERENTIAL Lab Routine Encounter for long-term (current) use of medications Expected: 08/08/2024 (Approximate), Expires: 08/08/2025 ALBUMIN / CREATININE RATIO, URINE Lab Routine HTN, goal below 130/80 Expected: 08/08/2024 (Approximate), Expires: 08/08/2025 HEMOGLOBIN A1C Lab Routine Prediabetes Expected: 08/08/2024 (Approximate), Expires: 08/08/2025 Scheduled Procedures Name Priority Associated Diagnoses Date/Ti [...] this encounter Medical Devices Implanted Type Area Scholastic Aptitude Test Grader Device Identifier Shelf Expiration Date Model / Serial / Lot Screw Bone 6.5x25mm - [id number] Implanted:Qty: 1 on 03/31/2022 by Rosales Winters MD at OR [facility] Screw Left: Hip JOSE : ORTHOPAEDICS 03/02/2027 [id number] / / WTTA 6.5mm Low Profile Hex Screw 6 - [id number] Implanted:Qty: 1 on 03/31/2022 by Rosales Winters MD at OR [facility] Screw Left: Hip JOSE : ORTHOPAEDICS 03/05/2027 [id number] / / [id number] Acetabular Clusterhole Shell56 - [id number] Implanted:Qty: 1 on 03/31/2022 by Rosales Winters MD at OR [facility] Left: Hip JOSE : ORTHOPAEDICS 01/15/2027 702-04-56F / / [id number] Trident Acetabular X3 10 36 F - [id number] Implanted:Qty: 1 on 03/31/2022 by Rosales Winters MD at OR [facility] Left: Hip JOSE : ORTHOPAEDICS 03/31/2026 723-10-36F / / [id number] Secur-Fit Advanced 132 Degree Neck Angle V40 Hip Stem Implanted:Qty: 1 on 03/31/2022 by Rosales Winters MD at OR [facility] Left: Hip JOSE : ORTHOPAEDICS 09/22/2025 [id number] / / [id number] Description:Size 9, 34mm Nec k Length, 142mm Stem Length, V40 Taper Hip Hd Nk Alumina D 36/+25 - [id number] Implanted:Qty: 1 on 03/31/2022 by Rosales Winters MD at OR [facility] Left: Hip JOSE : ORTHOPAEDICS 05/19/2026 6570-0-536 / / [id number] documented as of this encounter Visit Diagnoses Diagnosis Encounter for long-term (current) use of medications- Primary Encounter for long-term (current) use of other medications Gastroesophageal reflux disease without esophagitis Esophageal reflux Dyslipidemia Other and unspecified hyperlipidemia HTN, goal below 130/80 Unspecified essential hypertension Special screening for malignant neoplasms, colon COPD, mild (HCC) Chronic airway obstruction, not elsewhere classified Prediabetes Other abnormal glucose Special screening for malignant neoplasms, colon documented in this encounter Advance Directives * Full Code (Latest Code Status on File) Date Activated Date Inactivated Comments 03/31/2022 11:03 AM 04/01/2022 2:51 PM This order reflects the patients wishes and were consensually agreed upon. Care Teams Accounting System Expert Relationship Specialty Start Date End Date Kaitlin Frye CRNP [address] [place] [address] PCP - General Nurse Practitioner 12/27/23 documented as of this encounter
--- OUTSIDE RECORDS SUMMARY | 2024-08-18 13:25 | External Medical Summary | Summary of Care ---
Author Name Unknown Organization [facility] Address [address] [facility] [place] [address] Phone [phone] Care Team Providers Care Locks Tender Name Role Phone Kaitlin Frye ANGELES Primary Care Provider +1- [phone] Encounter Details Date Type Department Care Team (Late st Contact Info) Description 06/13/2024 Patient Reported Data Patient Survey Ortho [facility] Allergies No known active allergiesdocumented as of this encounter (statuses as of 06/13/2024) Medications Medication Sig Dispensed Refills Start Date End Date Status Fluticasone Propionate 50 MCG/ACT Nasal Suspension (Flonase)Indication s:Chronic rhinitis Administer 2 Sprays into each nostril in the morning. 16 g 11 12/20/2023 Active Atorvastatin Calcium 40 MG Oral Tablet (Lipitor)Indication s:Dyslipidemia Take 1 Tablet by mouth in the morning. 30 Tablet 5 12/20/2023 Active Carvedilol 25 MG Oral Tablet [...] before bedtime. 12 g 2 05/15/2024 Active documented as of this encounter (statuses as of 06/13/2024) Active Problems Problem Noted Date Diagnosed Date [...] as of this encounter (statuses as of 06/13/2024) Resolved Problems Problem Noted Date Diagnosed Date Resolved Date COPD, mild 10/20/2021 02/18/2023 Overview: Per COPD GOLD Classification documented as of this encounter (statuses as of 06/13/2024) Immunizations Name Administration Dates Next Due COVID-19 [...] 07/03/2024 9:00 AM EDT Office Visit Orthopaedics [facility] [address] [place] [address] Mesfin Rodriguez MD [address] [place] [address] 07/21/2024 1:00 PM EDT Office Visit Family Practice [facility] [address] [address] Kaitlin Frye CRNP [address] [place] [address] 08/16/2024 8:30 AM EDT Hospital Encounter ENDO [facility], Endoscopy Room [facility] [address] [place] [address] Sonya Tom MD [address] [place] [address] 08/16/2024 8:30 AM EDT - 08/16/2024 9:00 AM EDT Surgery ENDO [facility], Endoscopy Room [facility] [address] [place] [phone] Sonya Tom MD [address] [place] [address] COLONOSCOPY FLEXIBLE PROXIMAL DIAGNOSTIC Scheduled Procedures Name [...] 05/19/2023 05/19/2013, 05/19/2013 Colorectal Cancer Screening 05/19/2023 Depression Screening 01/29/2024 01/28/2023 COVID-19 Vaccine ( [...] this encounter Medical Devices Implanted Type Area Social Science Professor Device Identifier Shelf Expiration Date Model / Serial / Lot Screw Bone 6.5x25mm - [id number] Implanted:Qty: 1 on 03/31/2022 by Rosales Winters MD at OR [facility] Screw Left: Hip JOSE : ORTHOPAEDICS 03/02/2027 4026-4058 / / WTTA 6.5mm Low Profile Hex Screw 6 - [id number] Implanted:Qty: 1 on 03/31/2022 by Rosales Winters MD at OR [facility] Screw Left: Hip JOSE : ORTHOPAEDICS 03/05/2027 2683-4043 / / [id number] Acetabular Clusterhole Shell56 - [id number] Implanted:Qty: 1 on 03/31/2022 by Rosales Winters MD at OR [facility] Left: Hip JOSE : ORTHOPAEDICS 01/15/2027 702-04-56F / / [id number] Trident Acetabular X3 10 36 F - [id number] Implanted:Qty: 1 on 03/31/2022 by Rosales Winters MD at OR [facility] Left: Hip JOSE : ORTHOPAEDICS 03/31/2026 723-10-36F / / [id number] Secur-Fit Advanced 132 Degree Neck Angle V40 Hip Stem Implanted:Qty: 1 on 03/31/2022 by Rosales Winters MD at OR [facility] Left: Hip JOSE : ORTHOPAEDICS 09/22/2025 [id number] / / [id number] Description:Size 9, 34mm Nec k Length, 142mm Stem Length, V40 Taper Hip Hd Nk Alumina D 36/+25 - [id number] Implanted:Qty: 1 on 03/31/2022 by Rosales Winters MD at OR [facility] Left: Hip JOSE : ORTHOPAEDICS 05/19/2026 6570-0-536 / / [id number] documented as of this encounter Advance Directives * Full Code (Latest Code Status on File) Date Activated Date Inactivated Comments 03/31/2022 11:03 AM 04/01/2022 2:51 PM This order reflects the patients wishes and were consensually agreed upon. Care Teams Locks Tender Relationship Specialty Start Date End Date Kaitlin Frye CRNP [address] [address] PCP - General Nurse Practitioner 12/27/23 documented as of this encounter
--- OUTSIDE RECORDS SUMMARY | 2024-08-18 13:25 | External Medical Summary | Summary of Care ---
Author Name Unknown Organization [facility] Address [address] [place] [address] Phone [phone] Care Team Providers Care Computer Typesetter Name Role Phone Kaitlin FryeNP Primary Care Provider +1- [phone] Reason for Visit * Reason Comments New Problem R knee Encounter Details Date Type Department Care Team (Latest Contact Info) Description 07/03/2024 9:00 AM EDT Office Visit Orthopaedics [facility] [address] [place] [address] Mesfin Rodriguez MD [address] [place] [address] Hip pain, right*; Chronic pain of right [...] knee 2 mL IJ ONCE 07/03/2024 07/03/2024 Active documented as of this encounter (statuses [...] - 07/03/2024 9:17 AM EDT Myles Irwin [id number] Myles Irwin is a 68 year old male who presents for consultation for right hip and right knee injury/pain to [facility]. Consult requested by Self . 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 Rosales Winters(orthopaedic surgery - [facility]) in March of 2022. Try this medicine [...] Rodriguez MD Primary Care Sports Medicine Orthopaedics [address] [address] documented in this encounter Nursing Notes * [...] 1:00 PM EDT Office Visit Family Practice [facility] [address] [place] [address] Kaitlin Frye CRNP [address] [place] [address] 08/14/2024 1:15 PM EDT Office Visit Orthopaedics [facility] [address] [place] [address] Mesfin Rodriguez MD [address] [place] [address] 08/16/2024 8:30 AM EDT Hospital Encounter ENDO [facility], Endoscopy Room [facility] [address] [place] [phone] Sonya oTm MD [address] [place] [address] 08/16/2024 8:30 AM EDT - 08/16/2024 9:00 AM EDT Surgery ENDO [facility], Endoscopy Room [facility] [address] [place] [phone] Sonya Tom MD [address] [place] [id number] COLONOSCOPY FLEXIBLE PROXIMAL DIAGNOSTIC Pending Results Name [...] this encounter Medical Devices Implanted Type Area Field Care Coordinator Device Identifier Shelf Expiration Date Model / Serial / Lot Screw Bone 6.5x25mm - [id number] Implanted:Qty: 1 on 03/31/2022 by Rosales Winters MD at OR [facility] Screw Left: Hip JOSE : ORTHOPAEDICS 03/02/2027 0549-6687 / / WTTA 6.5mm Low Profile Hex Screw 6 - [id number] Implanted:Qty: 1 on 03/31/2022 by Rosales Winters MD at OR [facility] Screw Left: Hip JOSE : ORTHOPAEDICS 03/05/2027 4132-1188 / / [id number] Acetabular Clusterhole Shell56 - [id number] Implanted:Qty: 1 on 03/31/2022 by Rosales Winters MD at OR [facility] Left: Hip JOSE : ORTHOPAEDICS 01/15/2027 702-04-56F / / [id number] Trident Acetabular X3 10 36 F - [id number] Implanted:Qty: 1 on 03/31/2022 by Rosales Winters MD at OR [facility] Left: Hip JOSE : ORTHOPAEDICS 03/31/2026 723-10-36F / / [id number] Secur-Fit Advanced 132 Degree Neck Angle V40 Hip Stem Implanted:Qty: 1 on 03/31/2022 by Rosales Winters MD at OR [facility] Left: Hip JOSE : ORTHOPAEDICS 09/22/2025 [id number] / / [id number] Description:Size 9, 34mm Nec k Length, 142mm Stem Length, V40 Taper Hip Hd Valeriano Azevedo Md D 36/+25 - [id number] Implanted:Qty: 1 on 03/31/2022 by Rosales Winters MD at OR [facility] Left: Hip JOSE : ORTHOPAEDICS 05/19/2026 6570-0-536 / / [id number] documented as of this encounter Visit Diagnoses [...] and were consensually agreed upon. Care Teams Computer Typesetter Relationship Specialty Start Date End Date Kaitlin Frye CRNP [address] [place] [address] PCP - General Nurse Practitioner 12/27/23 documented as of this encounter
--- OUTSIDE RECORDS SUMMARY | 2024-08-18 13:25 | External Medical Summary | Summary of Care ---
Author Name Unknown Organization [facility] Address [address] [facility] [place] [address] Phone [phone] Care Team Providers Care Education Program Manager Name Role Phone Kaitlin Frye ANGELES Primary Care Provider +1- [phone] Encounter Details Date Type Department Care Team [...] 07/03/2024 9:00 AM EDT Office Visit Orthopaedics [facility] [address] [address] Mesfin Rodriguez MD [address] [place] [address] 07/21/2024 1:00 PM EDT Office Visit Family Practice [facility] [address] [place] [address] Kaitlin Frye CRNP [address] [place] [address] 08/16/2024 8:30 AM EDT Hospital Encounter ENDO [facility], Endoscopy Room [facility] [address] [place] [address] Sonya Tom MD [address] [place] [address] 08/16/2024 8:30 AM EDT - 08/16/2024 9:00 AM EDT Surgery ENDO [facility], Endoscopy Room [facility] [address] [place] [phone] Sonya Tom MD [address] [place] [address] COLONOSCOPY FLEXIBLE PROXIMAL DIAGNOSTIC Scheduled Procedures Name [...] this encounter Medical Devices Implanted Type Area Meter Repairer Device Identifier Shelf Expiration Date Model / Serial / Lot Screw Bone 6.5x25mm - [id number] Implanted:Qty: 1 on 03/31/2022 by Rosales Winters MD at OR [facility] Screw Left: Hip JOSE : ORTHOPAEDICS 03/02/2027 0809-5321 / / WTTA 6.5mm Low Profile Hex Screw 6 - [id number] Implanted:Qty: 1 on 03/31/2022 by Rosales Winters MD at OR [facility] Screw Left: Hip JOSE : ORTHOPAEDICS 03/05/2027 8566-4798 / / [id number] Acetabular Clusterhole Shell56 - [id number] Implanted:Qty: 1 on 03/31/2022 by Rosales Winters MD at OR [facility] Left: Hip JOSE : ORTHOPAEDICS 01/15/2027 702-04-56F / / [id number] Trident Acetabular X3 10 36 F - [id number] Implanted:Qty: 1 on 03/31/2022 by Rosales Winters MD at OR [facility] Left: Hip JOSE : ORTHOPAEDICS 03/31/2026 723-10-36F / / [id number] Secur-Fit Advanced 132 Degree Neck Angle V40 Hip Stem Implanted:Qty: 1 on 03/31/2022 by Rosales Winters MD at OR [facility] Left: Hip JOSE : ORTHOPAEDICS 09/22/2025 [id number] / / [id number] Description:Size 9, 34mm Nec k Length, 142mm Stem Length, V40 Taper Hip Hd Nk Alumina D 36/+25 - [id number] Implanted:Qty: 1 on 03/31/2022 by Rosales Winters MD at OR [facility] Left: Hip JOSE : ORTHOPAEDICS 05/19/2026 6570-0-536 / / [id number] documented as of this encounter Advance Directives * Full Code (Latest Code Status on File) Date Activated Date Inactivated Comments 03/31/2022 11:03 AM 04/01/2022 2:51 PM This order reflects the patients wishes and were consensually agreed upon. Care Teams Education Program Manager Relationship Specialty Start Date End Date Kaitlin Frye CRNP [address] [address] PCP - General Nurse Practitioner 12/27/23 documented as of this encounter
--- OUTSIDE RECORDS SUMMARY | 2024-08-18 13:25 | External Medical Summary | Summary of Care ---
Author Name Unknown Organization [facility] Address [address] [facility] [place] [address] Phone [phone] Care Team Providers Care Motor Vehicles Supervisor Name Role Phone Kaitlin Naylor Primary Care Provider +1- [phone] Reason for Visit * Reason Comments eRx-Medication Refill Encounter Details Date Type Department Care Team (Late st Contact Info) Description 06/17/2024 Refill Family Practice [facility] [address] [place] [address] Kaitlin Naylor CRNP [address] [place] [address] HTN, goal below 130/80*; Dyslipidemia; Encounter for long-term (current) use of medications Allergies No known active allergiesdocumented as of this encounter (statuses as of 06/20/2024) Medications Medication Sig Dispensed Refills Start Date End Date Status Fluticasone Propionate 50 MCG/ACT Nasal Suspension (Flonase)Indicati ons:Chronic rhinitis Administer 2 Sprays into each nostril in the morning. 16 g 12/20/2023 Active Carvedilol 25 MG Oral Tablet (Coreg)Indication s:HTN, goal below 130/80 Take 1 Tablet by mouth in the morning and 1 Tablet before bedtime. with food. 60 Tablet 12/20/2023 Active hydroCHLOROthiazi de 25 MG Oral [...] Active Atorvastatin Calcium 40 MG Oral Tablet (Lipitor)Indicati ons:Dyslipidemia TAKE 1 TABLET BY MOUTH EVERY DAY IN THE MORNING 90 Tablet 06/19/2024 Active Atorvastatin Calcium 40 MG Oral Tablet (Lipitor)Indicati ons:Dyslipidemia Take 1 Tablet by mouth in the morning. 30 Tablet 5 12/20/2023 4 Discontinued documented as of this encounter (statuses as of 06/20/2024) Active Problems Problem Noted Date Diagnosed Date [...] as of this encounter (statuses as of 06/20/2024) Resolved Problems Problem Noted Date Diagnosed Date Resolved Date COPD, mild 10/20/2021 02/18/2023 Overview: Per COPD GOLD Classification documented as of this encounter (statuses as of 06/20/2024) Immunizations Name Administration Dates Next Due COVID-19 [...] No 03/31/2022 documented as of this encounter Miscellaneous Notes * Telephone Encounter - Micaela Corrigan - 06/20/2024 9:56 PM EDT Received message from [facility] regarding patient needing labs. Patient was notified. Successfully contacted patient and provided [facility] message. * Telephone Encounter - Herman Cortez RP - 06/19/2024 11:32 AM EDT Signed Prescriptions: Disp Refills Atorvastatin Calcium 40 MG Oral Tablet (Li*90 Tab*0 Sig: TAKE 1 TABLET BY MOUTH EVERY DAY IN THE MORNING Authorizing Provider: KAITLIN NAYLOR User: HERMAN CORTEZ * Telephone Encounter - Herman Cortez RPh - 06/19/2024 11:30 AM EDT Provided 90 days supply with 0 refill(s). Per refill protocol patient should have REPEAT LIPID PANEL and AST/ALT on file after changing statins (changed from rosuvastatin to atorvastatin 12/20/23). Reviewed AMP report, Care Gaps/Health Maintenance, medications list, and for any routine labs typically ordered for this patient. Lab orders placed. Please contact patient to advise of labs ordered for blood draw AND URINE specimen (patient will have to be able to void to provide sample). Recommend patient to fast if able for labs. Patient may still have water and regular medications. Advise to obtain labs before requesting the next refill. Thanks, Herman Cortez, PharmD Clinical Pharmacist [facility] ([facility]) [phone] 06/19/2024, 11:30 AM documented in this encounter Plan of Treatment Upcoming Encounters Date Type Department Care Team (Latest Contact Info) Description 07/03/2024 9:00 AM EDT Office Visit Orthopaedics [facility] [address] [facility] [place] [address] Mesfin Rodriguez MD [address] [place] [address] 07/21/2024 1:00 PM EDT Office Visit [facility] [place] [address] [place] [address] Kaitlin Naylor CRNP [address] [place] [address] 08/16/2024 8:30 AM EDT Hospital Encounter ENDO [facility], Endoscopy Room [facility] [address] [place] [phone] Sonya Tom MD [address] [place] [address] 08/16/2024 8:30 AM EDT - 08/16/2024 9:00 AM EDT Surgery ENDO [facility], Endoscopy Room [facility] [address] [place] [phone] Sonya Tom MD [address] [place] [id number] COLONOSCOPY FLEXIBLE PROXIMAL DIAGNOSTIC Scheduled Orders Name Type Priority Associated Diagnoses Orde r Schedule LIPID PANEL WITH DIRECT LDL IF TG IS HIGH Lab Routine Dyslipidemia Encounter for long-term (current) use of medications Expected: 06/26/2024 (Approximate), Expires: 06/19/2025 COMPREHENSIVE METABOLIC PANEL Lab Routine HTN, goal below 130/80 Encounter for long-term (current) use of medications Expected: 06/26/2024 (Approximate), Expires: 06/19/2025 Scheduled Procedures Name Priority Associated Diagnoses Date/Ti [...] this encounter Medical Devices Implanted Type Area Microsoft Architect Device Identifier Shelf Expiration Date Model / Serial / Lot Screw Bone 6.5x25mm - [id number] Implanted:Qty: 1 on 03/31/2022 by Rosales Winters MD at OR [facility] Screw Left: Hip JOSE : ORTHOPAEDICS 03/02/2027 8234-0573 / / WTTA 6.5mm Low Profile Hex Screw 6 - [id number] Implanted:Qty: 1 on 03/31/2022 by Rosales Winters MD at OR [facility] Screw Left: Hip JOSE : ORTHOPAEDICS 03/05/2027 2234-2757 / / [id number] Acetabular Clusterhole Shell56 - [id number] Implanted:Qty: 1 on 03/31/2022 by oRsales Winters MD at OR [facility] Left: Hip JOSE : ORTHOPAEDICS 01/15/2027 702-04-56F / / [id number] Trident Acetabular X3 10 36 F - [id number] Implanted:Qty: 1 on 03/31/2022 by Rosales Winters MD at OR [facility] Left: Hip JOSE : ORTHOPAEDICS 03/31/2026 723-10-36F / / [id number] Secur-Fit Advanced 132 Degree Neck Angle V40 Hip Stem Implanted:Qty: 1 on 03/31/2022 by Rosales Winters MD at OR [facility] Left: Hip JOSE : ORTHOPAEDICS 09/22/2025 [id number] / / [id number] Description:Size 9, 34mm Nec k Length, 142mm Stem Length, V40 Taper Hip Hd Nk Alumina D 36/+25 - [id number] Implanted:Qty: 1 on 03/31/2022 by Rosales Winters MD at OR [facility] Left: Hip JOSE : ORTHOPAEDICS 05/19/2026 6570-0-536 / / [id number] documented as of this encounter Visit Diagnoses Diagnosis HTN, goal below 130/80- Primary Unspecified essential hypertension Dyslipidemia Other and unspecified hyperlipidemia Encounter for long-term (current) use of medications Encounter for long-term (current) use of other medications Special screening for malignant neoplasms, colon documented in this encounter Advance Directives * Full Code (Latest Code Status on File) Date Activated Date Inactivated Comments 03/31/2022 11:03 AM 04/01/2022 2:51 PM This order reflects the patients wishes and were consensually agreed upon. Care Teams Motor Vehicles Supervisor Relationship Specialty Start Date End Date Kaitlin Naylor CRNP [address] [place] [address] PCP - General Nurse Practitioner 12/27/23 documented as of this encounter
--- OUTSIDE RECORDS SUMMARY | 2024-08-18 13:25 | External Medical Summary | Summary of Care ---
Author Name Unknown Organization [facility] Address [address] [facility] [place] [address] Phone [phone] Care Team Providers Care Binder Caser Name Role Phone Kaitlin Frye ANGELES Primary Care Provider +1- [phone] Encounter Details Date Type Department Care Team [...] 07/03/2024 9:00 AM EDT Office Visit Orthopaedics [facility] [address] [place] [address] Mesfin Rodriguez MD [address] [place] [address] 07/21/2024 1:00 PM EDT Office Visit Family Practice [facility] [address] [place] [address] Kaitlin Frye CRNP [address] [place] [address] 08/16/2024 8:30 AM EDT Hospital Encounter ENDO [facility], Endoscopy Room [facility] [address] [place] [phone] Sonya Tom MD [address] [place] [address] 08/16/2024 8:30 AM EDT - 08/16/2024 9:00 AM EDT Surgery ENDO [facility], Endoscopy Room [facility] [address] [place] [phone] Sonya Tom MD [address] [place] [address] COLONOSCOPY FLEXIBLE PROXIMAL DIAGNOSTIC Scheduled Procedures Name [...] this encounter Medical Devices Implanted Type Area Candles Pourer Device Identifier Shelf Expiration Date Model / Serial / Lot Screw Bone 6.5x25mm - [id number] Implanted:Qty: 1 on 03/31/2022 by Rosales Winters MD at OR [facility] Screw Left: Hip JOSE : ORTHOPAEDICS 03/02/2027 5106-0948 / / WTTA 6.5mm Low Profile Hex Screw 6 - [id number] Implanted:Qty: 1 on 03/31/2022 by Rosales Winters MD at OR [facility] Screw Left: Hip JOSE : ORTHOPAEDICS 03/05/2027 5868-2291 / / [id number] Acetabular Clusterhole Shell56 - [id number] Implanted:Qty: 1 on 03/31/2022 by Rosales Winters MD at OR [facility] Left: Hip JOSE : ORTHOPAEDICS 01/15/2027 702-04-56F / / [id number] Trident Acetabular X3 10 36 F - [id number] Implanted:Qty: 1 on 03/31/2022 by Rosales Winters MD at OR [facility] Left: Hip JOSE : ORTHOPAEDICS 03/31/2026 723-10-36F / / [id number] Secur-Fit Advanced 132 Degree Neck Angle V40 Hip Stem Implanted:Qty: 1 on 03/31/2022 by Rosales Winters MD at OR [facility] Left: Hip JOSE : ORTHOPAEDICS 09/22/2025 [id number] / / [id number] Description:Size 9, 34mm Nec k Length, 142mm Stem Length, V40 Taper Hip Hd Nk Alumina D 36/+25 - [id number] Implanted:Qty: 1 on 03/31/2022 by Rosales Winters MD at OR [facility] Left: Hip JOSE : ORTHOPAEDICS 05/19/2026 6570-0-536 / / [id number] documented as of this encounter Advance Directives * Full Code (Latest Code Status on File) Date Activated Date Inactivated Comments 03/31/2022 11:03 AM 04/01/2022 2:51 PM This order reflects the patients wishes and were consensually agreed upon. Care Teams Binder Caser Relationship Specialty Start Date End Date Kaitlin Frye CRNP [address] [place] [address] PCP - General Nurse Practitioner 12/27/23 documented as of this encounter
--- OUTSIDE RECORDS SUMMARY | 2024-08-18 13:25 | External Medical Summary | Summary of Care ---
Author Name Unknown Organization [facility] Address [address] [facility] [place] [address] Phone [phone] Care Team Providers Care Brush Maker Machine Name Role Phone MónicaTali bronsonKaitlin ANGELES Primary Care Provider +1- [phone] Encounter Details Date Type Department Care Team (Late st Contact Info) Description 06/22/2024 Orders Only PATIENT PORTAL DO NOT DELETE THIS DEPT USED BY [place] [address] Allergies No known active allergiesdocumented as of this encounter (statuses as of 06/22/2024) Medications Medication Sig Dispensed Refills Start Date [...] as of this encounter (statuses as of 06/22/2024) Active Problems Problem Noted Date Diagnosed Date [...] as of this encounter (statuses as of 06/22/2024) Resolved Problems Problem Noted Date Diagnosed Date Resolved Date COPD, mild 10/20/2021 02/18/2023 Overview: Per COPD GOLD Classification documented as of this encounter (statuses as of 06/22/2024) Immunizations Name Administration Dates Next Due COVID-19 [...] 07/03/2024 9:00 AM EDT Office Visit Orthopaedics [facility] [address] [place] [address] Mesfin Rodriguez MD [address] [place] [address] 07/21/2024 1:00 PM EDT Office Visit Family Practice [facility] [address] [place] [address] Kaitlin Frye CRNP [address] [place] [address] 08/16/2024 8:30 AM EDT Hospital Encounter ENDO [facility], Endoscopy Room [facility] [address] [place] [phone] Sonya Tom MD [address] [place] [address] 08/16/2024 8:30 AM EDT - 08/16/2024 9:00 AM EDT Surgery ENDO [facility], Endoscopy Room [facility] [address] [place] [phone] Sonya Tom MD [address] [place] [address] COLONOSCOPY FLEXIBLE PROXIMAL DIAGNOSTIC Scheduled Procedures Name [...] this encounter Medical Devices Implanted Type Area Seafood Harvester Device Identifier Shelf Expiration Date Model / Serial / Lot Screw Bone 6.5x25mm - [id number] Implanted:Qty: 1 on 03/31/2022 by Rosales Winters MD at OR [facility] Screw Left: Hip JOSE : ORTHOPAEDICS 03/02/2027 9816-5500 / / WTTA 6.5mm Low Profile Hex Screw 6 - [id number] Implanted:Qty: 1 on 03/31/2022 by Rosales Winters MD at OR [facility] Screw Left: Hip JOSE : ORTHOPAEDICS 03/05/2027 7233-5874 / / [id number] Acetabular Clusterhole Shell56 - [id number] Implanted:Qty: 1 on 03/31/2022 by Rosales Winters MD at OR [facility] Left: Hip JOSE : ORTHOPAEDICS 01/15/2027 702-04-56F / / [id number] Trident Acetabular X3 10 36 F - [id number] Implanted:Qty: 1 on 03/31/2022 by Rosales Winters MD at OR [facility] Left: Hip JOSE : ORTHOPAEDICS 03/31/2026 723-10-36F / / [id number] Secur-Fit Advanced 132 Degree Neck Angle V40 Hip Stem Implanted:Qty: 1 on 03/31/2022 by Rosales Winters MD at OR [facility] Left: Hip JOSE : ORTHOPAEDICS 09/22/2025 1601-54835 / / [id number] Description:Size 9, 34mm Nec k Length, 142mm Stem Length, V40 Taper Hip Hd Nk Alumina Md Ortega 36/+25 - [id number] Implanted:Qty: 1 on 03/31/2022 by Rosales Winters MD at OR [facility] Left: Hip JOSE : ORTHOPAEDICS 05/19/2026 6570-0-536 / / [id number] documented as of this encounter Advance Directives * Full Code (Latest Code Status on File) Date Activated Date Inactivated Comments 03/31/2022 11:03 AM 04/01/2022 2:51 PM This order reflects the patients wishes and were consensually agreed upon. Care Teams Brush Maker Machine Relationship Specialty Start Date End Date Kaitlin Frye CRNP [address] [place] [address] PCP - General Nurse Practitioner 12/27/23 documented as of this encounter
--- OUTSIDE RECORDS SUMMARY | 2024-08-18 13:26 | External Medical Summary | Summary of Care ---
Author Name Unknown Organization [facility] Address [address] [facility] [place] [address] Phone [phone] Care Team Providers Care Kettleman Name Role Phone Kaitlin Naylor Primary Care Provider +1- [phone] Reason for Visit * Reason Onset Date Comments Medication Refill 03/28/2024 Encounter Details Date Type Department Care Team (Late st Contact Info) Description 03/28/2024 Refill Family Practice [facility] [address] [place] [address] Kaitlin Naylor CRNP [address] [place] [address] HTN, goal below 130/80 Allergies No known active allergiesdocumented as of this encounter (statuses as of 03/29/2024) Medications Medication Sig Dispensed Refills Start Date [...] the morning. 90 Tablet 2 03/29/2024 Active Fosinopril Sodium 40 MG Oral Tablet (Monopril)Indicat ions:HTN, goal below 130/80 Take 1 Tablet by mouth in the morning. 30 Tablet 3 12/20/2023 Discontinue d(Refill) documented as of this encounter (statuses as of 03/29/2024) Active Problems Problem Noted Date Diagnosed Date [...] as of this encounter (statuses as of 03/29/2024) Resolved Problems Problem Noted Date Diagnosed Date Resolved Date COPD, mild 10/20/2021 02/18/2023 Overview: Per COPD GOLD Classification documented as of this encounter (statuses as of 03/29/2024) Immunizations Name Administration Dates Next Due COVID-19 [...] money to get more. Never true 01/28/2023 Sex and Gender Information Value Date Recorded [...] encounter Miscellaneous Notes * Telephone Encounter - Cas Winters [facility] - 03/29/2024 9:35 AM EDTSigned Prescriptions: Disp Refills Fosinopril Sodium 40 MG Oral Tablet (Monop*90 Tab*2 Sig: Take 1Tablet by mouth in the morning.Authorizing Provider: Alli NAYLOR User: CAS WINTERS CH documented in this encounter Plan of Treatment Upcoming Encounters Date Type Department Care Team (Latest Contact Info) Description 07/21/2024 1:00 PM EDT Office Visit [address] [place] [address] Kaitlin Naylor CRNP [address] [place], [place] [address] 08/16/2024 8:30 AM EDT Hospital Encounter ENDO [facility], Endoscopy Room [facility] [address] [place] [phone] Sonya Tom MD [address] [place] [address] 08/16/2024 8:30 AM EDT - 08/16/2024 9:00 AM EDT Surgery ENDO [facility], Endoscopy Room [facility] [address] [place] [phone] Sonya Tom MD [address] [place] [address] COLONOSCOPY FLEXIBLE PROXIMAL DIAGNOSTIC Scheduled Procedures [...] 05/03/2013, 03/17/2004 Zoster Vaccines Completed 09/16/2020, 07/08/2020 Influenza Vaccine (FLU shot) Completed 02/2024, 11/11/2023, 09/10/2022, Additional history exists GARDASIL-HPV IMMUNIZATION SERIES Aged Out No longer eligible based on patient's age to complete this topic Hepatitis B Aged Out No longer eligi ble based on patient's age to complete this topic MENINGOCOCCAL (MENACTRA/MENVEO) Aged Out No longer eligible based on patient's age to complete this topic documented as of this encounter Medical Devices Implanted Type Area Counselor Aid Device Identifier Shelf Expiration Date Model / Serial / Lot Screw Bone 6.5x25mm - [id number] Implanted:Qty: 1 on 03/31/2022 by Rosales Winters MD at OR [facility] Screw Left: Hip JOSE : ORTHOPAEDICS 03/02/2027 6271-1918 / / WTTA 6.5mm Low Profile Hex Screw 6 - [id number] Implanted:Qty: 1 on 03/31/2022 by Rosales Winters MD at OR [facility] Screw Left: Hip JOSE : ORTHOPAEDICS 03/05/2027 9142-3151 / / [id number] Acetabular Clusterhole Shell56 - [id number] Implanted:Qty: 1 on 03/31/2022 by Rosales Winters MD at OR [facility] Left: Hip JOSE : ORTHOPAEDICS 01/15/2027 702-04-56F / / [id number] Trident Acetabular X3 10 36 F - [id number] Implanted:Qty: 1 on 03/31/2022 by Rosales Winters MD at OR [facility] Left: Hip JOSE : ORTHOPAEDICS 03/31/2026 723-10-36F / / [id number] Secur-Fit Advanced 132 Degree Neck Angle V40 Hip Stem Implanted:Qty: 1 on 03/31/2022 by Rosales Winters MD at OR [facility] Left: Hip JOSE : ORTHOPAEDICS 09/22/2025 [id number] / / [id number] Description:Size 9, 34mm Nec k Length, 142mm Stem Length, V40 Taper Hip Hd Nk Alumina Md Ortega 36/+25 - [id number] Implanted:Qty: 1 on 03/31/2022 by Rosales Winters MD at OR [facility] Left: Hip JOSE : ORTHOPAEDICS 05/19/2026 6570-0-536 / / [id number] documented as of this encounter Visit Diagnoses Diagnosis HTN, goal below 130/80 Unspecified essential hypertension Special screening for malignant neoplasms, colon documented in this encounter Advance Directives * Full Code (Latest Code Status on File) Date Activated Date Inactivated Comments 03/31/2022 11:03 AM 04/01/2022 2:51 PM This order reflects the patients wishes and were consensually agreed upon. Care Teams Kettleman Relationship Specialty Start Date End Date Kaitlin Naylor CRNP [address] [place] [address] PCP - General Nurse Practitioner 12/27/23 documented as of this encounter
--- OUTSIDE RECORDS SUMMARY | 2024-08-18 13:26 | External Medical Summary | Summary of Care ---
Author Name Unknown Organization [facility] Address [address] [place] [address] Phone [phone] Care Team Providers Care Hop Weigher Name Role Phone Kaitlin Frye ANGELES Primary Care Provider +1- [phone] Encounter Details Date Type Department Care Team (Late st Contact Info) Description 05/29/2024 Orders Only Outcomes Research Department [address] [place] [address] [facility] Rubio [facility] Other*[id number] Allergies No known active allergiesdocumented as of this encounter (statuses as of 05/29/2024) Medications Medication Sig Dispensed Refills Start Date End Date Status Fluticasone Propionate 50 MCG/ACT Nasal Suspension (Flonase)Indication s:Chronic rhinitis Administer 2 Sprays into each nostril in the morning. 16 g 12/20/2023 Active Atorvastatin Calcium 40 MG Oral Tablet (Lipitor)Indication s:Dyslipidemia Take 1 Tablet by mouth in the morning. 30 Tablet 12/20/2023 Active Carvedilol 25 MG Oral Tablet [...] as of this encounter (statuses as of 05/29/2024) Active Problems Problem Noted Date Diagnosed Date [...] as of this encounter (statuses as of 05/29/2024) Resolved Problems Problem Noted Date Diagnosed Date Resolved Date COPD, mild 10/20/2021 02/18/2023 Overview: Per COPD GOLD Classification documented as of this encounter (statuses as of 05/29/2024) Immunizations Name Administration Dates Next Due COVID-19 [...] 07/03/2024 9:00 AM EDT Office Visit Orthopaedics [facility] [address] [place] [address] Mesfin Rodriguez MD [address] [place] [address] 07/21/2024 1:00 PM EDT Office Visit Family Practice [facility] [address] [place] [address] Kaitlin Frye CRNP [address] [place] [address] 08/16/2024 8:30 AM EDT Hospital Encounter ENDO [facility], Endoscopy Room [facility] [address] [place], [place] [phone] Sonya Tom MD [address] [place] [address] 08/16/2024 8:30 AM EDT - 08/16/2024 9:00 AM EDT Surgery ENDO [facility], Endoscopy Room [facility] [address] [place] [phone] Sonya Tom MD [address] [place] [address] COLONOSCOPY FLEXIBLE PROXIMAL DIAGNOSTIC Scheduled Orders Name Type Priority Associated Diagnoses Orde r Schedule MYCODE SUBSEQUENT ADULT Lab Routine MyCode Research Other*[id number] Every 6 Months for 2 Occurrences starting 05/29/2024 until 06/18/2025 Scheduled Procedures Name Priority Associated Diagnoses Date/Ti [...] 2024 11/11/2023, 11/11/2023, 09/10/2022, Additional history exists *COPD SEVERITY VERIFIED BY PFT 05/21/2024 *CXR OR CT FOR COPD EVER 05/21/2024 Influenza Vaccine (FLU shot) (#1) 2024 11/11/2023, 11/11/2023, 09/10/2022, Additional history exists HbA1c 12/20/2024 12/20/2023, 03/11/2022 GFR 01/16/2025 01/17/2024, 12/09, 04/01/2022, Additional history exists O2 ASSESSMENT COMPLETED IN PAST YEAR FOR COPD 01/16/2025 01/17/2024 Albumin/Creatinine Ratio 12/20/2026 12/20/2023, 03/0 07/2020 Lipid Panel 12/20/2028 12/20/2023, 05/08, 12/15/2019, Additional history exists DTaP,Tdap,and Td Vaccines (3 - Td or Tdap) 10/15/2032 10/15/2022, 05/03/2013, 03/17/2004 *BASELINE EKG FOR HTN Completed 12/15/2019 Zoster Vaccines Completed 09/16/2020, 07/08/2020 HPV (Gardasil) [...] this encounter Medical Devices Implanted Type Area Coach Professional Athletes Device Identifier Shelf Expiration Date Model / Serial / Lot Screw Bone 6.5x25mm - [id number] Implanted:Qty: 1 on 03/31/2022 by Rosales Winters MD at OR [facility] Screw Left: Hip JOSE : ORTHOPAEDICS 03/02/2027 1641-3417 / / WTTA 6.5mm Low Profile Hex Screw 6 - [id number] Implanted:Qty: 1 on 03/31/2022 by Rosales Winters MD at OR [facility] Screw Left: Hip JOSE : ORTHOPAEDICS 03/05/2027 2642-0443 / / [id number] Acetabular Clusterhole Shell56 - [id number] Implanted:Qty: 1 on 03/31/2022 by Rosales Winters MD at OR [facility] Left: Hip JOSE : ORTHOPAEDICS 01/15/2027 702-04-56F / / [id number] Trident Acetabular X3 10 36 F - [id number] Implanted:Qty: 1 on 03/31/2022 by Rosales Winters MD at OR [facility] Left: Hip JOSE : ORTHOPAEDICS 03/31/2026 723-10-36F / / [id number] Secur-Fit Advanced 132 Degree Neck Angle V40 Hip Stem Implanted:Qty: 1 on 03/31/2022 by Rosales Winters MD at OR [facility] Left: Hip JOSE : ORTHOPAEDICS 09/22/2025 1601-65713 / / [id number] Description:Size 9, 34mm Nec k Length, 142mm Stem Length, V40 Taper Hip Hd Nk Alumina D 36/+25 - [id number] Implanted:Qty: 1 on 03/31/2022 by Rosales Winters MD at OR [facility] Left: Hip JOSE : ORTHOPAEDICS 05/19/2026 6570-0-536 / / [id number] documented as of this encounter Visit Diagnoses Diagnosis MyCode Research Other*[id number] Special screening for malignant neoplasms, colon documented in this encounter Advance Directives * Full Code (Latest Code Status on File) Date Activated Date Inactivated Comments 03/31/2022 11:03 AM 04/01/2022 2:51 PM This order reflects the patients wishes and were consensually agreed upon. Care Teams Hop Weigher Relationship Specialty Start Date End Date Kaitlin Frye CRNP [address] [place] [address] PCP - General Nurse Practitioner 12/27/23 documented as of this encounter
--- OUTSIDE RECORDS SUMMARY | 2024-08-18 13:26 | External Medical Summary | Summary of Care ---
Author Name Unknown Organization [facility] Address [address] [facility] [place] [address] Phone [phone] Care Team Providers Care It Field Technician Name Role Phone Kaitlin Frye ANGELES Primary Care Provider [phone]- [phone] Encounter Details Date Type Department Care Team (Late st Contact Info) Description 06/06/2024 Patient Reported Data Patient Survey Ortho [facility] Allergies No known active allergiesdocumented as of this encounter (statuses as of 06/06/2024) Medications Medication Sig Dispensed Refills Start Date [...] as of this encounter (statuses as of 06/06/2024) Active Problems Problem Noted Date Diagnosed Date [...] as of this encounter (statuses as of 06/06/2024) Resolved Problems Problem Noted Date Diagnosed Date Resolved Date COPD, mild 10/20/2021 02/18/2023 Overview: Per COPD GOLD Classification documented as of this encounter (statuses as of 06/06/2024) Immunizations Name Administration Dates Next Due COVID-19 [...] 07/03/2024 9:00 AM EDT Office Visit Orthopaedics [facility] [address] [place] [address] Mesfin Rodriguez MD [address] [place] [address] 07/21/2024 1:00 PM EDT Office Visit Family Practice [facility] [address] [place] [address] Kaitlin Frye CRNP [address] [place] [address] 08/16/2024 8:30 AM EDT Hospital Encounter ENDO [facility], Endoscopy Room [facility] [address] [place] [phone] Sonya Tom MD [address] [place] [address] 08/16/2024 8:30 AM EDT - 08/16/2024 9:00 AM EDT Surgery ENDO [facility], Endoscopy Room [facility] [address] [place] [id number] Sonya Tom MD [address] [place] [address] COLONOSCOPY FLEXIBLE PROXIMAL DIAGNOSTIC Scheduled Procedures Name [...] this encounter Medical Devices Implanted Type Area Hospitality Team Member Device Identifier Shelf Expiration Date Model / Serial / Lot Screw Bone 6.5x25mm - [id number] Implanted:Qty: 1 on 03/31/2022 by Rosales Winters MD at OR [facility] Screw Left: Hip JOSE : ORTHOPAEDICS 03/02/2027 4043-0257 / / WTTA 6.5mm Low Profile Hex Screw 6 - [id number] Implanted:Qty: 1 on 03/31/2022 by Rosales Winters MD at OR [facility] Screw Left: Hip JOSE : ORTHOPAEDICS 03/05/2027 [id number] / / [id number] Acetabular Clusterhole Shell56 - [id number] Implanted:Qty: 1 on 03/31/2022 by Rosales Winters MD at OR [facility] Left: Hip JOSE : ORTHOPAEDICS 01/15/2027 702-04-56F / / [id number] Trident Acetabular X3 10 36 F - [id number] Implanted:Qty: 1 on 03/31/2022 by Rosales Winters MD at OR [facility] Left: Hip JOSE : ORTHOPAEDICS 03/31/2026 723-10-36F / / [id number] Secur-Fit Advanced 132 Degree Neck Angle V40 Hip Stem Implanted:Qty: 1 on 03/31/2022 by Rosales Winters MD at OR [facility] Left: Hip JOSE : ORTHOPAEDICS 09/22/2025 [id number] / / [id number] Description:Size 9, 34mm Nec k Length, 142mm Stem Length, V40 Taper Hip Hd Nk Alumina Md Ortega 36/+25 - [id number] Implanted:Qty: 1 on 03/31/2022 by Rosales Winters MD at OR [facility] Left: Hip JOSE : ORTHOPAEDICS 05/19/2026 6570-0-536 / / [id number] documented as of this encounter Advance Directives * Full Code (Latest Code Status on File) Date Activated Date Inactivated Comments 03/31/2022 11:03 AM 04/01/2022 2:51 PM This order reflects the patients wishes and were consensually agreed upon. Care Teams It Field Technician Relationship Specialty Start Date End Date Kaitlin Frye CRNP [address] [place] [address] PCP - General Nurse Practitioner 12/27/23 documented as of this encounter
--- OUTSIDE RECORDS SUMMARY | 2024-08-18 13:26 | External Medical Summary | Summary of Care ---
Author Name Unknown Organization [facility] Address [address] [facility] [place] [address] Phone [phone] Care Team Providers Care Outdoor Illuminating Engineer Name Role Phone Kaitlin Frye ANGELES Primary Care Provider [phone]- [phone] Encounter Details Date Type Department Care Team [...] 07/03/2024 9:00 AM EDT Office Visit Orthopaedics [facility] [address] [place] [address] Mesfin Rodriguez MD [address] [place] [address] 07/21/2024 1:00 PM EDT Office Visit Family Practice [facility] [address] [place] [address] Kaitlin Frye CRNP [address] [place] [address] 08/16/2024 8:30 AM EDT Hospital Encounter ENDO [facility], Endoscopy Room [facility] [address] [place] [address] Sonya Tom MD [address] [place] [address] 08/16/2024 8:30 AM EDT - 08/16/2024 9:00 AM EDT Surgery ENDO [facility], Endoscopy Room [facility] [address] [place] [phone] Sonya Tom MD [address] [place] [address] COLONOSCOPY FLEXIBLE PROXIMAL DIAGNOSTIC Scheduled Procedures Name [...] this encounter Medical Devices Implanted Type Area Engine Lathe Set Up Operator Tool Device Identifier Shelf Expiration Date Model / Serial / Lot Screw Bone 6.5x25mm - [id number] Implanted:Qty: 1 on 03/31/2022 by Rosales Winters MD at OR [facility] Screw Left: Hip JOSE : ORTHOPAEDICS 03/02/2027 [id number] / / WTTA 6.5mm Low Profile Hex Screw 6 - [id number] Implanted:Qty: 1 on 03/31/2022 by Rosales Winters MD at OR [facility] Screw Left: Hip JOSE : ORTHOPAEDICS 03/05/2027 [id number] / / [id number] Acetabular Clusterhole Shell56 - [id number] Implanted:Qty: 1 on 03/31/2022 by Rosales Winters MD at OR [facility] Left: Hip JOSE : ORTHOPAEDICS 01/15/2027 702-04-56F / / [id number] Trident Acetabular X3 10 36 F - [id number] Implanted:Qty: 1 on 03/31/2022 by Rosales Winters MD at OR [facility] Left: Hip JOSE : ORTHOPAEDICS 03/31/2026 723-10-36F / / [id number] Secur-Fit Advanced 132 Degree Neck Angle V40 Hip Stem Implanted:Qty: 1 on 03/31/2022 by Rosales Winters MD at OR [facility] Left: Hip JOSE : ORTHOPAEDICS 09/22/2025 [id number] / / [id number] Description:Size 9, 34mm Nec k Length, 142mm Stem Length, V40 Taper Hip Hd Nk Alumina Md Ortega 36/+25 - [id number] Implanted:Qty: 1 on 03/31/2022 by Rosales Winters MD at OR [facility] Left: Hip JOSE : ORTHOPAEDICS 05/19/2026 6570-0-536 / / [id number] documented as of this encounter Advance Directives * Full Code (Latest Code Status on File) Date Activated Date Inactivated Comments 03/31/2022 11:03 AM 04/01/2022 2:51 PM This order reflects the patients wishes and were consensually agreed upon. Care Teams Outdoor Illuminating Engineer Relationship Specialty Start Date End Date Kaitlin Frye CRNP [address] [place] [address] PCP - General Nurse Practitioner 12/27/23 documented as of this encounter
--- NOTE | 2024-08-18 14:23 | Electrocardiogram Report ---
Test Reason : Blood Pressure : */* mmHG Vent. Rate : 88 BPM Atrial Rate : 88 BPM P-R Int : 140 ms QRS Dur : 86 ms QT Int : 348 ms P-R-T Axes : 65 56 33 degrees QTcB Int : 421 ms Poor data quality, interpretation may be adversely affected Normal sinus rhythm Nonspecific ST and T wave abnormality Abnormal ECG No previous ECGs available Confirmed by Parveen Lopez ([id number]) on 08/18/2024 2:23:02 PM Referred By: REFERRED SELF Confirmed By: Parveen Lopez
--- NOTE | 2024-08-18 22:49 | CT Scan Report ---
Exam(s): CT HEAD Without Contrast EXAM: CT Head Without Intravenous Contrast CLINICAL HISTORY: Reason for exam: 24 hour post TNK for stroke- eval for hemorrhage. TECHNIQUE: Axial computed tomography images of the head/brain without intravenous contrast. CTDI is 35.86 mGy and DLP is 625.8 mGy-cm. Automated exposure control was utilized for the study. A dose lowering technique was utilized adhering to the principles of ALARA. COMPARISON: Prior brain MRI from August 18, 2024. FINDINGS: Brain: Unremarkable. No hemorrhage. No significant white matter disease. No edema. Ventricles: Unremarkable. No ventriculomegaly. Bones/joints: Unremarkable. No acute fracture. Soft tissues: Unremarkable. Sinuses: Chronic obstructive maxillary sinusitis. No acute sinusitis. Mastoid air cells: Unremarkable as visualized. No mastoid effusion. IMPRESSION: No evidence of acute intracranial pathology. Electronically signed by: Danielle Altamirano MD 08/18/24 22:48 PM
[2024-08-19 04:13] LABS: Basophils # (auto) 0.06 K/uL (0.00-0.20); Basophils % (auto) 0.8 %; Eosinophils # (auto) 0.16 K/uL (0.00-0.50); Hematocrit (blood only) 35.1 % (42.0-52.0); Hemoglobin 11.7 g/dl (14.0-18.0); Immature Granulocytes # (auto) 0.03 K/uL (0.01-0.20); Immature Granulocytes % (auto) 0.4 %; Lymphocytes # (auto) 2.84 K/uL (1.20-3.40); Lymphocytes % (auto) 36.1 %; Mean Corpuscular Hemoglobin 32.8 pg (25.0-34.0); Mean Corpuscular Hgb Conc 33.3 g/dL (32.0-36.0); Mean Corpuscular Volume 98.3 fL (80.0-100.0); Mean Platelet Volume 9.2 fL (9.4-12.4); Monocytes # (auto) 0.64 K/uL (0.11-0.59); Monocytes % (auto) 8.1 %; Neutrophils # (auto) 4.14 K/uL (1.40-6.50); Neutrophils % (auto) 52.6 %; Platelet Count 221 K/uL (130-400); RDW Coefficient of Variation 12.2 % (11.5-14.5); RDW Standard Deviation 44.1 fL (36.4-46.3); Red Blood Count 3.57 M/uL (4.70-6.10); White Blood Count 7.87 K/ul (4.8-10.8)
[2024-08-19 04:29] LABS: BUN Creatinine Ratio 26.1 (10-20); Calcium 8.7 mg/dl (8.6-10.3); Creatinine Clr Calc Pharmacy 77.5 ml/min; Magnesium 2.1 mg/dl (1.7-2.4); Potassium 4.2 mmol/L (3.5-5.1)
[2024-08-19 07:57] VITALS: BP 151/80; PULSE 80; RESP 18; TEMP 97.7; O2SAT 96
[2024-08-19] MEDS: ASPIRIN 81 MG ECTAB PO SCH (08:25)
[2024-08-19] MEDS ORDERED: hydroCHLOROthiazide 25 MG TAB PO SCH (09:00)
--- NOTE | 2024-08-19 10:13 | Discharge Summary ---
Discharge Summary Date of Service August 19, 2024 Principal Dx & Hospital Course #1 = Principal Diagnosis (1) Toxic metabolic encephalopathy: (2) Accidental marijuana poisoning: Suspect marijuana may have been laced with ecstasy/methamphetamine (3) Acute renal failure superimposed on stage 3 chronic kidney disease: Suspect due to NSAIDs (4) Hypertensive urgency: (5) Osteoarthritis: Plan Patient presented to the emergency room with questionable slurred speech and bilateral lower extremity weakness. In the emergency room concern for acute stroke and was given TNK. Patient was admitted to the ICU. He proceeded with uneventful post TNK course. His blood pressure significantly improved and actually became somewhat hypotensive. Antihypertensive medications were actuall y held. He was given some IV fluid for his acute kidney injury. Patient was seen by nephrology who agreed with the IV fluid. On additional history and additional objective data being obtained urinalysis was positive for methamphetamine, marijuana and ecstasy. Patient does admit to using marijuana. He states he usually grows his own marijuana but recently bought some off the street from an unknown source. He used the marijuana the day of his symptoms. MRI of the brain was performed and showed no evidence of stroke and no evidence of microvascular disease. His blood pressure stabilized and his acute kidney injury resolved. Patient also gave additional history was taking quite a bit of ibuprofen for osteoarthritis of his knee. This along with his hydrochlorothiazide and HORACE inhibitor was most likely the source of his acute kidney injury. All of his symptoms completely resolved. On the day of discharge his blood pressure was stable. He is up and ambulatory. He had no residual symptoms. Ultimately felt as though this most likely was symptoms brought on by the laced marijuana including his hypertension and other neurological symptoms. Acute stroke has been ruled out. He will be discharged home to follow-up with his outpatient providers. He understands that he may need to have his blood pressure medications titrated up as needed Notes For Next Care Provider Patient may need to have additional antihypertensive medications added back to control blood pressure Medication Changes From Visit Fosinopril and hydrochlorothiazide discontinued Admission HPI Per Admitting Provider 68-year-old male with past medical history significant for dyslipidemia, prediabetes, COPD, hypertension, reflux esophagitis, osteoarthritis of knee and ankles, lumbar degenerative disc disease, avascular necrosis of left hip, comes because of strokelike symptoms. Today around 7:15 PM patient was was on his tree stand hunting and suddenly felt weak. Had difficulty getting down the tree but was able to get his stuff down and after that he fell. He felt weakness in the legs. His friend drove him for evaluation. Initially it seems he was having weakness in both legs more so on the right leg and some slurred speech and right facial droop. Stroke alert was called. Initial imaging studies were okay. Because of his symptoms [place] telestroke decided to give TNK. Currently patient is status post TNK. Seems symptoms much improved. He is speaking in full sentences. Currently no weakness noted and no facial droop noted. Family is in the room. Patient is somewhat tearful. Denies any headache. No blurred visions or double visions. No headache. No sore throat or cough. No recent fevers. No difficulty swallowing. States has some shortness of breath currently as he has COPD. No chest pains. No nausea. No abdominal pain. Normal bowel and bladder movements. Denies any blood in the stools or black stools. Patient had colonoscopy yesterday. No rashes. No swelling in the legs. Patient received a dose of labetalol prior to TNK. Past medical history. As mentioned above Past surgical history. Colonoscopy. Dental surgery. EGD with biopsy. Knee arthroscopy. Inguinal hernia repair. Shoulder surgery. Left hip replacement. Social history. . Quit smoking in 1975. Former user of smokeless tobacco quit in 1999. Smokes marijuana occasionally as per epic. No alcohol use. Admission Exam Per Admitting Provider See H&P Discharge Exam Constitutional: Alert, no acute distress HEENT: Mucous membranes moist. Lungs: Clear to auscultation, decreased, no wheezes rales or rhonchi CV: S1-S2, regular Abdomen: Soft, nontender, nondistended Extremities: No significant edema Neuro: No focal deficits, NIH stroke score equals 0 Psych: Cooperative, normal mood Updated Medication List Medication Instructions Recorded Confirmed Type carvedilol 25 mg tablet 25 mg PO BID 08/18/24 08/18/24 History fluticasone propionate 115 2 puff inhalation BID 08/18/24 08/18/24 History mcg-salmeterol 21 mcg/actuation HFA inhaler (Advair HFA) fosinopril 40 mg tablet 40 mg PO DAILY 08/18/24 08/18/24 History hydrochlorothiazide 25 mg tablet 25 mg PO DAILY 08/18/24 08/18/24 History omeprazole 20 mg capsule,delayed 20 mg PO DAILY 08/18/24 08/18/24 History release rosuvastatin 20 mg tablet 20 mg PO DAILY 08/18/24 08/18/24 History Hospital Stay Data Consultations 08/17/24 20:35 ED Decision to Admit Stat 08/17/24 22:30 Consult Visitor Services Associate Routine 08/18/24 08:00 Consult Neurology Routine 08/18/24 08:13 Consult Nephrology Routine Diagnostic Imagining Performed 08/17/24 19:47 CT angio head w con Stat CT angio neck with con Stat CT head/brain wo con Stat 08/18/24 00:39 MR brain wo/w con Routine 08/18/24 20:30 CT head/brain wo con Stat Reviewed imaging, laboratory and diagnostic studies. Pertinent findings as below. MRI of the brain negative for acute stroke or any signs of ischemia Hemoglobin 11.7 Potassium 4.2 Creatinine 1.15, improved Pending Results Patient Have Any Pending Studies at Discharge: No Discharge Instructions Given to Patient (Per Discharging Provider) Recommend avoiding/eliminating unknown sources of marijuana Recommend stopping ibuprofen/Advil/Motrin/naproxen/Naprosyn/Aleve for your joint pains because of your kidney dysfunction. Recommend using only Tylenol Total Time Total Time Spent Total Time Spent (In Minutes): 33
[2024-08-23 15:22] LABS: Amphetamine Urine, Confirm 5004 ng/mL (<250); MDA negative; MDEA negative; MDMA (Ecstasy) Urine, Confirm negative; Marijuana Quant, GCMS Urine 3998 ng/mL (<5); Methamphetamine, Ur Confirm >15000 ng/mL (<250)
== END 2024-08-19 10:49 | disposition home or self-care (01) | DRG 917 ==
LOC: ED 19:43 → 1E 21:39 → SUATTDRO 21:39 → 1E 22:15 → 2S 08-19 06:36